=== PATIENT | male | born 1950 | race Caucasian/White ===

== ENCOUNTER 2021-03-15 03:14 | Inpatient (IN) ==
[2021-03-15] MEDS ORDERED: NALOXONE HCL 0.4 MG/ML VIAL ONE (03:25)
--- NOTE | 2021-03-15 03:37 | Emergency Department Note ---
SOB HPI General Chief Complaint: Shortness of Breath/Dyspnea Stated Complaint: Hypoxia Time Seen by Provider: 03/15/21 03:27 Mode of arrival: EMS Limitations: altered mental status and physical limitation History of Present Illness HPI Narrative: 70-year-old male was [facility] in from prison after he was found to be hypoxic and lethargic without his oxygen on. Patient has chronic respiratory failure supposed to be on oxygen as well as CPAP at night. He is morbidly obese has a history of chronic respiratory failure chronic atrial fibrillation and congestive heart failure and emphysema per prison records. On arrival of EMS patient was lethargic with minimal improvement when placed on oxygen. It is unclear how long the patient did not have his oxygen or his CPAP on. Patient is also on opiates routinely. Patient is morbidly obese unable to provide any history and awakens only to painful stimuli and voice. He has previous DO NOT RESUSCITATE order. halfway records are reviewed. Nursing notes reviewed. Related Data Home Medications Medication Instructions Recorded Confirmed buspirone 10 mg PO BID 03/15/21 calcium carbonate [Antacid 500 mg PO QDAY PRN 03/15/21 03/15/21 (calcium carbonate)] fluoxetine 20 mg PO QDAY 03/15/21 03/15/21 lorazepam 0.5 mg PO Q6 PRN 03/15/21 morphine 5 mg PO Q6 03/15/21 03/15/21 quetiapine [Seroquel] 12.5 mg PO BID 03/15/21 03/15/21 umeclidinium-vilanterol [Anoro 1 inh INHALATION QDAY 03/15/21 03/15/21 Ellipta] Allergies Allergy/AdvReac Type Severity Reaction Status Date / Time Amoxicillin [From Augmentin] Allergy Unknown Unknown Verified 03/15/21 03:17 clavulanic acid Allergy Unknown Unknown Verified 03/15/21 03:17 [From Augmentin] doxycycline Allergy Unknown Unknown Verified 03/15/21 03:17 NSAIDS (Non-Steroidal Allergy Unknown Unknown Verified 03/15/21 03:17 Anti-Inflamma Penicillins Allergy Unknown Unknown Verified 03/15/21 03:17 Review of Systems ROS ROS Narrative: Unobtainable due to patient's altered mental status [facility] Narrative Patient History Narrative: Narrative: Medical/Surgical/Family History All Active Problems (Updated 03/15/21 @ 05:38 by Anatoliy Connors MD) Acute and chronic respiratory failure ([id number]) (Acute) Congestive heart failure (Acute) Social History Smoking Status: Unknown if ever smoked Exam Narrative Narrative: Constitutional: morbidly obese, sleepy, HEENT: Normocephalic, atraumatic PERRLA, EOMI, oral mucosa dry Neck: Supple, no lymphadenopathy Lungs: Tachypneic, labored breathing, diminished breath sounds bilaterally Cardiac: Tachycardic, irregularly ir regular rhythm normal distal pulses, GI: Soft obese nondistended no guarding no rebound Musculoskeletal: 2+ pitting edema Neuro: Lethargic, opens eyes and moans to painful stimuli moving all extremities Psychiatric: Unable to assess Skin: Chronic stasis changes on bilateral legs cap refill less than 2 seconds, thickened skin on buttocks and thighs. General Limitations: altered mental status and physical limitation Course Reevaluation(s) Reevaluation #1: Patient is more awake now responds to voice and nods when I asked him if he is feeling better. I told him he is being admitted to the hospital and he nodded yes. Time: 05:08 Consultations Consultation #1: Case discussed with Dr. Mcgowan, hospitalist who agrees to admit patient. Time: 05:54 Vital Signs Vital signs: Vital Signs Temperature 96.9 F L 03/15/21 03:18 Pulse Rate 92 H 03/15/21 03:18 Respiratory Rate 27 H 03/15/21 03:18 Blood Pressure 127/87 03/15/21 03:18 Pulse Oximetry (%) 98 03/15/21 03:18 Temperature 96.9 F L 03/15/21 03:18 Pulse Rate 96 H 03/15/21 04:46 Respiratory Rate 27 H 03/15/21 05:30 Blood Pressure 101/75 03/15/21 05:30 Pulse Oximetry (%) 92 03/15/21 04:46 MDM MDM Narrative Medical decision making narrative: 70-year-old male prison resident bedridden morbidly obese history of CHF, chronic respiratory failure COPD chronic atrial fibrillation presents after he was found without his oxygen on. Blood gas shows acute on chronic hypercarbic respiratory failure with pH is 7.19 PCO2 124 PO2 79. CBC is normal BNP elevated troponin negative. EKG shows atrial fibrillation which is chronic. Patient is on Coumadin and INR 4.5. Because of the respiratory acidosis with severe hypercarbia patient was placed on BiPAP with improvement in his alertness.. Patient has previously DO NOT RESUSCITATE order on his records but noninvasive ventilation is deemed to be acceptable.. Will be admitted for further evaluation and treatment. Case discussed with Dr Mcgowan who agrees to admit patient. Differential Diagnosis Differential Diagnosis: Acute on chronic respiratory failure, hypoxemia, hypercarbia, CHF, ACS Lab Data Lab results reviewed: Yes I reviewed the patient's lab results. Lab results narrative: ABG shows pH 7.19 PCO2 greater than 124 PO2 79 bicarb of 42 Result diagrams: 03/15/21 03:27 03/15/21 03:27 Labs: Lab Results 03/15/21 03/15/21 03/15/21 Range/Units 03:27 03:27 03:27 WBC 10.7 (4.5-11.0) K/mcL RBC 4.67 (4.50-5.90) M/mcL Hgb 14.3 (13.5-16.5) g/dL Hct 50.0 (41.0-55.0) % MCV 107.1 H (80.0-100.0) fL MCH 30.6 (26.0-34.0) pg MCHC 28.6 L (31.0-36.0) g/dL RDW 13.6 (11.5-14.5) % Plt Count 279 (140-440) K/mcL MPV 10.6 H (7.4-10.4) fL Seg Neutrophils % 70 (38-78) % Band Neutrophils % 2 (0-10) % Lymphocytes % 14 L (15-49) % Monocytes % (Manual) 11 (1-12) % Eosinophils % (Manual) 2 (0-7) % Basophils % (Manual) 1 (0-2) % Platelet Estimate Normal (Normal) RBC Morphology Abnormal A (Normal) Macrocytosis 1+ A (None Seen) PT 44.5 H (11.9-14.5) sec INR 4.5 H (0.9-1.1) APTT 76.3 H (20.0-37.0) sec Sodium 135 (133-145) mmol/L Potassium 4.6 (3.3-5.1) mmol/L Chloride 84 L (96-108) mmol/L Carbon Dioxide 46 H* (22-30) mmol/L Anion Gap 5.0 L (8.0-16.0) BUN 13 (8-23) mg/dL Creatinine 0.8 (0.7-1.2) mg/dL GFR Calculation 89 Glucose 174 H (70-105) mg/dL Calcium 9.8 (8.6-10.4) mg/dL Total Bilirubin 0.3 (0.1-1.0) mg/dL AST 18 (<40) U/L ALT 9 (<40) U/L Alkaline Phosphatase 87 (39-117) U/L Troponin T (<0.03) ng/mL NT-Pro-B Natriuret Pep 2380.0 H (<125.0) pg/mL Total Protein 8.0 (5.9-8.4) gm/dL Albumin 3.5 (3.2-5.2) gm/dL Globulin 4.5 H (2.2-3.7) gm/dL Albumin/Globulin Ratio 0.8 L (1.0-2.3) 03/15/21 Range/Units 03:27 WBC (4.5-11.0) K/mcL RBC (4.50-5.90) M/mcL Hgb (13.5-16.5) g/dL Hct (41.0-55.0) % MCV (80.0-100.0) fL MCH (26.0-34.0) pg MCHC (31.0-36.0) g/dL RDW (11.5-14.5) % Plt Count (140-440) K/mcL MPV (7.4-10.4) fL Seg Neutrophils % (38-78) % Band Neutrophils % (0-10) % Lymphocytes % (15-49) % Monocytes % (Manual) (1-12) % Eosinophils % (Manual) (0-7) % Basophils % (Manual) (0-2) % Platelet Estimate (Normal) RBC Morphology (Normal) Macrocytosis (None Seen) PT (11.9-14.5) sec INR (0.9-1.1) APTT (20.0-37.0) sec Sodium (133-145) mmol/L Potassium (3.3-5.1) mmol/L Chloride (96-108) mmol/L Carbon Dioxide (22-30) mmol/L Anion Gap (8.0-16.0) BUN (8-23) mg/dL Creatinine (0.7-1.2) mg/dL GFR Calculation Glucose (70-105) mg/dL Calcium (8.6-10.4) mg/dL Total Bilirubin (0.1-1.0) mg/dL AST (<40) U/L ALT (<40) U/L Alkaline Phosphatase (39-117) U/L Troponin T < 0.01 (<0.03) ng/mL NT-Pro-B Natriuret Pep (<125.0) pg/mL Total Protein (5.9-8.4) gm/dL Albumin (3.2-5.2) gm/dL Globulin (2.2-3.7) gm/dL Albumin/Globulin Ratio (1.0-2.3) ED POC Tests ED POC Tests: KATINA - SARS Antigen Negative Radiology Data Radiology results reviewed: Yes I reviewed the patient's radiology results. Radiology results narrative: IMPRESSION: Moderate fibrosis or soft tissue throughout the right pleural space encasing and restricting the entire right lung volume. Suggest chest CT for more specific evaluation Moderate atelectasis or, less likely, infiltrate in both medial bases. Moderate cardiomegaly. Interpreted and Authenticated by: Orion Choudhary 03/15/21 EKG Data EKG #1: EKG attestation: Yes I reviewed and interpreted this EKG. and Yes There are no EKG findings of acute coronary syndrome EKG results narrative: EKG performed at 3:37 AM shows atrial fibrillation with rapid response rate of 125 right axis deviation, incomplete right bundle branch block borderline prolonged QT interval nonspecific ST changes CC TIME Critical Care Time Critical Care Time: Yes Total Critical Care Time: 35 Discharge Plan Patient/Caregiver Discharge Instructions Pt seen by TELETYPEWRITER OPERATOR/PA only: No Clinical Impression: Acute and chronic respiratory failure ([id number]), Congestive heart failure Patient Disposition: Xfer As Inpt ([facility]) Condition: Serious Follow up with: Not On Staff,Physician [Primary Care Provider] - Prescriptions: No Action quetiapine [Seroquel] 25 mg Tablet 12.5 mg PO BID RF: 0 lorazepam 0.5 mg Tablet 0.5 mg PO Q6 PRN (Reason: Shortness Of Breath) RF: 0 fluoxetine 20 mg Tablet 20 mg PO QDAY RF: 0 buspirone 10 mg Tablet 10 mg PO BID RF: 0 calcium carbonate [Antacid (calcium carbonate)] 200 mg calcium (500 mg) Tablet,Chewable 500 mg PO QDAY PRN (Reason: Indigestion) RF: 0 Anoro Ellipta 62.5-25 mcg/actuation Blister With Device 1 inh INHALATION QDAY RF: 0 morphine 20 mg/ml solution 5 mg PO Q6 RF: 0
[2021-03-15] MEDS ORDERED: NALOXONE HCL 0.4 MG/ML VIAL IV ONE (03:50)
--- NOTE | 2021-03-15 03:52 | XRay Report ---
CLINICAL INFORMATION: dyspnea COMPARISON: None. FINDINGS: Moderate cardiomegaly noted. Mild mediastinal widening noted. Pulmonary vasculature unremarkable. Moderate soft tissue or fibrosis throughout the right pleural space has encased and restricted the entire right lung. There is moderate atelectasis or infiltrate in both medial lower lobe with air bronchograms. IMPRESSION: Moderate fibrosis or soft tissue throughout the right pleural space encasing and restricting the entire right lung volume. Suggest chest CT for more specific evaluation Moderate atelectasis or, less likely, infiltrate in both medial bases. Moderate cardiomegaly. Interpreted and Authenticated by: Orion Choudhary 03/15/21
[2021-03-15 05:12] LABS: Hemoglobin 14.3 g/dL (13.5-16.5); Mean Cell Volume 107.1 fL (80.0-100.0); Mean Corpuscular HGB Conc 28.6 g/dL (31.0-36.0); Mean Platelet Volume 10.6 fL (7.4-10.4); Platelet Count 279 K/mcL (140-440); RBC 4.67 M/mcL (4.50-5.90); Red Cell Distribution Width 13.6 % (11.5-14.5); WBC 10.7 K/mcL (4.5-11.0)
[2021-03-15 05:29] LABS: INR 4.5 (0.9-1.1); Partial Thromboplastin Time 76.3 sec (20.0-37.0); Prothrombin Time 44.5 sec (11.9-14.5)
[2021-03-15 05:38] LABS: ALT/SGPT 9 U/L (<40); AST/SGOT 18 U/L (<40); Albumin 3.5 gm/dL (3.2-5.2); Albumin/Globulin Ratio 0.8 (1.0-2.3); Alkaline Phosphatase 87 U/L (39-117); Bilirubin,Total 0.3 mg/dL (0.1-1.0); Blood Urea Nitrogen 13 mg/dL (8-23); Calcium 9.8 mg/dL (8.6-10.4); Carbon Dioxide 46 mmol/L (22-30); Chloride 84 mmol/L (96-108); Globulin 4.5 gm/dL (2.2-3.7); Glomerular Filtration Rate 89; Glucose 174 mg/dL (70-105)
[2021-03-15 05:55] LABS: Band Neutrophils % 2 % (0-10); Basophils % (Manual) 1 % (0-2); Eosinophils % (Manual) 2 % (0-7); Lymphocytes % 14 % (15-49); Macrocytosis 1+ (None Seen); Monocytes % (Manual) 11 % (1-12); Platelet Estimate NORMAL (Normal); RBC Morphology ABNORMAL (Normal); Segmented Neutrophils % 70 % (38-78)
[2021-03-15 06:18] LABS: Appearance,Urine HAZY (Clear); Bilirubin,Urine Negative (Negative); Color,Urine AMBER; Culture Indicated,Urine yes; Glucose,Urine (UA) Negative (Negative); Ketones,Urine Negative (Negative); Leukocyte Esterase,Urine Negative /ug (Negative); Mucus,Urine MOD /hpf; Nitrate,Urine Negative (Negative); Protein,Urine 30 mg/dL (Negative); Specific Gravity,Urine 1.023 (1.000-1.035); Urine Blood Negative (Negative); Urine Hyaline Cast 135 /lph (0-2); Urine RBC 3 /hpf (0-3); Urine Squamous Epithelial Cell 1 /hpf (0-4); Urine WBC 27 /hpf (0-4); Urobilinogen,Urine Negative
--- NOTE | 2021-03-15 09:30 | Internal Med History&Physical ---
HPI History of Present Illness Patient information: Note initiated : 03/15/21 at 9:24 am Service Date, if different from initiated Date: [] Patient: James Hyde 70 y/o M admitted on 03/15/21 for Hypoxia. Chief Complaint: [] History of present illness: Mr. Hyde is a 70 year old M Patient was found at the nursing facility without his CPAP or oxygen on. His oxygen was 39% and he was altered. EMS was called placed on BiPAP. In the ED is found to have a pH 7.19 with a CO2 of greater than 124. Is continued on BiPAP and improved mentation follow-up ABG improving. Patient denies any current complaints coughing shortness of breath no current chest pain. He chronically wears 4 L of oxygen. Review of Systems: Pertinent positives as above. Denies headache/fever/chills/nausea/vomiting/chest or abdominal pain/cough/dyspnea/diarrhea. Remaining 10 point review of system reviewed negative PFSH PFSH All Active Problems (Updated 03/15/21 @ 05:38 by Anatoliy Connors MD) Acute and chronic respiratory failure ([id number]) (Acute) Congestive heart failure (Acute) MEDS/ALLERGIES Home Medications and Allergies Home Medications Medication Instructions Recorded Confirmed Type buspirone 10 mg PO BID 03/15/21 History calcium carbonate [Antacid 500 mg PO QDAY PRN 03/15/21 03/15/21 History (calcium carbonate)] fluoxetine 20 mg PO QDAY 03/15/21 03/15/21 History lorazepam 0.5 mg PO Q6 PRN 03/15/21 History morphine 5 mg PO Q6 03/15/21 03/15/21 History quetiapine [Seroquel] 12.5 mg PO BID 03/15/21 03/15/21 History umeclidinium-vilanterol [Anoro 1 inh INHALATION QDAY 03/15/21 03/15/21 History Ellipta] Allergies Allergy/AdvReac Type Severity Reaction Status Date / Time Amoxicillin [From Augmentin] Allergy Unknown Unknown Verified 03/15/21 03:17 clavulanic acid Allergy Unknown Unknown Verified 03/15/21 03:17 [From Augmentin] doxycycline Allergy Unknown Unknown Verified 03/15/21 03:17 NSAIDS (Non-Steroidal Allergy Unknown Unknown Verified 03/15/21 03:17 Anti-Inflamma Penicillins Allergy Unknown Unknown Verified 03/15/21 03:17 EXAM Constitutional Vitals: Temp Pulse Resp BP Pulse Ox 97.3 F 72 15 132/89 91 03/15/21 09:00 03/15/21 07:15 03/15/21 09:00 03/15/21 09:00 03/15/21 09:00 Exam: General: Alert, Awake, No acute Distress, morbid obesity Eyes/N/T: EOMI, PERRL, Head/Neck: neck supple, normocephalic atraumatic CV: RRR, No murmurs, normal s1/s2 Pulm: Diminished b/l, no wheezing Abd: soft, nontender, +BS x4 Ext: no clubbing/cyanosis 1 + b/l LE edema, venous stasis changes bilateral lower extremities Neuro: Alert, no focal deficits, moves all extremities, CN 2-12 grossly intact, symmetrical strength b/l upper/lower, sensations intact b/l upper/lower Skin: warm/dry DATA Data Completed and Pending Labs: Labs from last 24 hours 03/15/21 03/15/21 03/15/21 05:22 03:27 03:27 WBC RBC Hgb Hct MCV MCH MCHC RDW Plt Count MPV Seg Neutrophils % Band Neutrophils % Lymphocytes % Monocytes % (Manual) Eosinophils % (Manual) Basophils % (Manual) Platelet Estimate RBC Morphology Macrocytosis PT INR APTT Sodium 135 Potassium 4.6 Chloride 84 L Carbon Dioxide 46 H* Anion Gap 5.0 L BUN 13 Creatinine 0.8 GFR Calculation 89 Glucose 174 H Calcium 9.8 Total Bilirubin 0.3 AST 18 ALT 9 Alkaline Phosphatase 87 Troponin T < 0.01 NT-Pro-B Natriuret Pep 2380.0 H Total Protein 8.0 Albumin 3.5 Globulin 4.5 H Albumin/Globulin Ratio 0.8 L Urine Color Susan Urine Appearance Hazy A Urine pH 5.0 Ur Specific [place] 1.023 Urine Protein 30 A Urine Glucose (UA) Negative Urine Ketones Negative Urine Occult Blood Negative Urine Nitrate Negative Urine Bilirubin Negative Urine Urobilinogen Negative Ur Leukocyte Esterase Negative Urine RBC 3 Urine WBC 27 H Ur Squamous Epith Cells 1 Urine Bacteria None Hyaline Casts 135 H Urine Mucus Mod A Ur Culture Indicated? yes 03/15/21 03/15/21 03:27 03:27 WBC 10.7 RBC 4.67 Hgb 14.3 Hct 50.0 MCV 107.1 H MCH 30.6 MCHC 28.6 L RDW 13.6 Plt Count 279 MPV 10.6 H Seg Neutrophils % 70 Band Neutrophils % 2 Lymphocytes % 14 L Monocytes % (Manual) 11 Eosinophils % (Manual) 2 Basophils % (Manual) 1 Platelet Estimate Normal RBC Morphology Abnormal A Macrocytosis 1+ A PT 44.5 H INR 4.5 H APTT 76.3 H Sodium Potassium Chloride Carbon Dioxide Anion Gap BUN Creatinine GFR Calculation Glucose Calcium Total Bilirubin AST ALT Alkaline Phosphatase Troponin T NT-Pro-B Natriuret Pep Total Protein Albumin Globulin Albumin/Globulin Ratio Urine Color Urine Appearance Urine pH Ur Specific [place] Urine Protein Urine Glucose (UA) Urine Ketones Urine Occult Blood Urine Nitrate Urine Bilirubin Urine Urobilinogen Ur Leukocyte Esterase Urine RBC Urine WBC Ur Squamous Epith Cells Urine Bacteria Hyaline Casts Urine Mucus Ur Culture Indicated? A/P Narrative A/P Narrative: A: *Acute on chronic hypercapnic/hypoxic respiratory failure (4L O2 @home and CPAP) -Improving *Encephalopathy: 2/2 above -Much improved *Abnormal chest x-ray with moderate fibrosis or soft tissue encasing right lung, rads suggest CT *RAMAKRISHNA on cpap: *Morbid obesity *Respiratory acidosis: 2/2 above *A. fib: On warfarin *?h/o CHF *COPD (on 4L @home): *Opiate dependence with chronic LBP: *Depression/anxiety: *Deconditioning/debility: Patient is wheelchair-bound and unable to transfer by self *pressure ulcers P: -bipap, f/u ABG -cont home meds and clarify meds -pcp records -CT chest -wound care -pt/ot -cm for placement -ppx: Warfarin per pharmacy Time Spent With Patient Time: Total time spent is greater than 50% in coordination of care (as documented) at patient's floor/unit and/or counseling patient:
[2021-03-15] MEDS ORDERED: CALCIUM CARBONATE 500 MG TAB.CHEW PO PRN (09:57)
[2021-03-15] MEDS ORDERED: POTASSIUM CHLORIDE 40 MEQ in DEXTROSE 5% IN WATER 500 ML IV PRN (09:58)
[2021-03-15] MEDS ORDERED: LACTULOSE 20 GM/30 ML ORAL.SOL PO PRN (09:58)
[2021-03-15] MEDS ORDERED: POTASSIUM CHLORIDE 20 MEQ TABLET PO PRN ×2 (09:58)
[2021-03-15] MEDS ORDERED: SENNOSIDES 1 TABLET PO PRN (09:58)
[2021-03-15] MEDS ORDERED: POLYETHYLENE GLYCOL 3350 17 GM PACKET PO PRN (09:58)
[2021-03-15] MEDS ORDERED: IPRATROPIUM/ALBUTEROL 3 ML AMPUL.NEB NEB PRN (09:58)
[2021-03-15] MEDS ORDERED: ONDANSETRON 4 MG/2 ML VIAL IV PRN (09:58)
[2021-03-15] MEDS ORDERED: MAGNESIUM SULFATE 2 GM/50 ML BAG IV PRN (09:58)
[2021-03-15] MEDS ORDERED: morphine 20 MG/ML ORAL.CONC PO PRN (10:13)
[2021-03-15] MEDS: 0.9 % SODIUM CHLORIDE 10 ML SYRINGE IV SCH ×2 (13:20→22:00)
--- NOTE | 2021-03-15 13:31 | Cat Scan Report ---
CLINICAL INFORMATION: Hypoxia. Pleural effusion or pleural soft tissue encasing and restricting the right lung on plain film COMPARISON: Chest x-ray 03/15/2021 TECHNIQUE: 0.625 mm axial slices were obtained from the lung apices through the bases without intravenous contrast. 2.5 mm Sagittal, coronal and axial reformatted images were processed and reviewed at bone, lung and soft tissue windows. 7 mm axial MIP images were also reconstructed to optimize pulmonary nodule detection.The exam was performed using radiation dose optimization techniques including, but not limited to, automated exposure control, adjustment of the mA and/or kV according to patient size and use of iterative reconstruction technique. FINDINGS: A large right pleural effusion results in subtotal compressive atelectasis in the right lower lobe and the posterior segment right upper lobe. There is also subtotal right middle lobe atelectasis. Small left pleural effusion with atelectasis in the medial basilar segment left lower lobe appreciated. Scattered mosaic perfusion pattern is seen throughout the aerated lungs. Mediastinal windows show the heart is mildly enlarged and scattered calcific plaque in the coronary arteries. Central pulmonary arteries are mildly enlarged main: pulmonary diameter 4.1 cm. Thoracic aorta is normal diameter. There is no adenopathy in the mediastinal hilar or axillary regions. The esophagus is grossly normal. Thyroid is unremarkable. Bones and soft tissues of the chest wall show no abnormality. Images through the superior abdomen show multiple small stones in the gallbladder. Gallbladder is, otherwise, normal. Visualized liver, adrenal glands, spleen and pancreas are normal.. IMPRESSION: 1. Large right pleural effusion resulting in subtotal atelectasis of the posterior right lower lobe and subsegmental atelectasis posterior right upper and middle lobes. Suggest thoracentesis for diagnosis and therapy 2. Small left pleural effusion with complete atelectasis medial basilar segment left lower lobe 3. Mosaic perfusion pattern throughout the residual aerated lungs. This typically indicates small airways disease or, less likely, chronic pulmonary emboli. 4. Enlargement of the central pulmonary arteries suggestive of pulmonary hypertension. 5. Mild cardiomegaly with scattered calcific plaque in the coronary arteries. 6. Cholelithiasis. Interpreted and Authenticated by: Orion Choudhary 03/15/21
[2021-03-15] MEDS: ACETAMINOPHEN 325 MG TABLET PO PRN (18:57)
[2021-03-15] MEDS: DOCUSATE SODIUM 100 MG CAPSULE PO SCH (21:22)
[2021-03-15] MEDS: QUEtiapine 25 MG TABLET PO SCH (21:22)
[2021-03-16] MEDS: ACETAMINOPHEN 325 MG TABLET PO PRN ×2 (01:06→06:55)
[2021-03-16] MEDS: 0.9 % SODIUM CHLORIDE 10 ML SYRINGE IV SCH ×3 (05:19→21:18)
[2021-03-16 07:22] LABS: INR 4.1 (0.9-1.1); Prothrombin Time 41.9 sec (11.9-14.5)
[2021-03-16] MEDS: PANTOPRAZOLE 40 MG TABLET PO SCH (07:32)
[2021-03-16] MEDS ORDERED: morphine 2 MG/ML VIAL IV PRN (07:38)
[2021-03-16] MEDS: METOPROLOL TARTRATE 5 MG/5 ML VIAL IV PRN ×5 (07:48→23:10)
--- NOTE | 2021-03-16 07:50 | Internal Med Progress Note ---
SUBJECTIVE Subjective Patient information: Note initiated : 03/16/21 at 7:49 am Service Date, if different from initiated Date: [] Patient: James Hyde 70 y/o M admitted on 03/15/21 for Hypoxia. Chief Complaint: [] Interval history: History of present illness: Mr. Hyde is a 70 year old M Patient was found at the nursing facility without his CPAP or oxygen on. His oxygen was 39% and he was altered. EMS was called placed on BiPAP. In the ED is found to have a pH 7.19 with a CO2 of greater than 124. Is continued on BiPAP and improved mentation follow-up ABG improving. Patient denies any current complaints coughing shortness of breath no current chest pain. He chronically wears 4 L of oxygen. *Discussion with about him and he has been a DNR/ comfort care at the facility and she was surprised that the patient was sent to the ED but it sounds like the patient called 911 himself. 03/16 Patient comfortable on BiPAP is been on nasal cannula occasionally and then placed back on. INR decreased some likely not enough for Thora, will discuss with radiology. Review of Systems: denies headache/fever/chills/nausea/vomiting/chest or abdominal pain/diarrhea. Otherwise see above. Constitutional Vitals: Vital Signs Temp Pulse Resp BP Pulse Ox 97.5 F 116 H 24 H 135/110 94 03/16/21 04:01 03/16/21 05:15 03/16/21 05:15 03/16/21 04:01 03/16/21 07:30 Period Temp Pulse Resp BP Sys/Aguayo Pulse Ox Last 24 Hr 96.8 F-98.5 F 91-122 13-92 96-204/54-167 76-100 Intake and Output 03/15/21 03/16/21 03/16/21 21:59 05:59 13:59 Intake Total 240 240 Output Total 375 250 Balance -135 -10 Weight 178.988 kg Intake & Output: Intake & Output 03/15/21 03/16/21 03/16/21 21:59 05:59 13:59 Intake Total 240 240 Output Total 375 250 Balance -135 -10 Weight 178.988 kg Intake: Oral 240 240 Output: Urine Catheter Amount 375 250 Other: Meal Dinner Percent of Meal Consumed 100% Urine Appearance Clear Clear Uretheral (Galan) Clear Urine Color Dark Yellow Dark Yellow Uretheral (Galan) Dark Yellow Exam: General: Alert, Awake, No acute Distress, morbid obesity Eyes/N/T: EOMI, , Head/Neck: neck supple, CV: RRR, No murmurs, Pulm: Diminished b/l, Abd: soft, nontender, +BS x4 Ext: no clubbing/cyanosis mild b/l LE edema, venous stasis changes bilateral lower extremities Neuro: Alert, no focal deficits, moves all extremities, Skin: warm/dry OBJ DATA Labs CBC & Chem 7: 03/15/21 03:27 03/16/21 05:19 Labs: Abnormal Lab Results 03/16/21 03/15/21 03/15/21 05:19 05:22 03:27 MCV MCHC MPV Lymphocytes % RBC Morphology Macrocytosis PT 41.9 H INR 4.1 H APTT Chloride 84 L Carbon Dioxide 46 H* Anion Gap 5.0 L Glucose 174 H NT-Pro-B Natriuret Pep 2380.0 H Globulin 4.5 H Albumin/Globulin Ratio 0.8 L Urine Appearance Hazy A Urine Protein 30 A Urine WBC 27 H Hyaline Casts 135 H Urine Mucus Mod A 03/15/21 03/15/21 03:27 03:27 MCV 107.1 H MCHC 28.6 L MPV 10.6 H Lymphocytes % 14 L RBC Morphology Abnormal A Macrocytosis 1+ A PT 44.5 H INR 4.5 H APTT 76.3 H Chloride Carbon Dioxide Anion Gap Glucose NT-Pro-B Natriuret Pep Globulin Albumin/Globulin Ratio Urine Appearance Urine Protein Urine WBC Hyaline Casts Urine Mucus Meds: Medications Acetaminophen (Acetaminophen 325 Mg Tablet) 650 mg PO Q6HP PRN PRN Reason: PAIN/FEVER > 101 Last Admin: 03/16/21 06:55 Dose: 650 mg Documented by: Albuterol/Ipratropium (Ipratropium/Albuterol 3 Ml Ampul.Neb) 3 ml NEB Q4HP PRN PRN Reason: Shortness Of Breath Calcium Carbonate/Glycine (Calcium Carbonate 500 Mg Tab.Chew) 500 mg PO QDAY PRN PRN Reason: Indigestion Docusate Sodium (Docusate Sodium 100 Mg Capsule) 100 mg PO BID [facility] Last Admin: 03/15/21 21:22 Dose: 100 mg Documented by: Fluoxetine HCl (Fluoxetine Hcl 20 Mg Capsule) 20 mg PO DAILY [facility] Potassium Chloride 40 meq/ (Dextrose) 520 mls @ 130 mls/hr IV UD PRN PRN Reason: Potassium < 3 Magnesium Sulfate (Magnesium Sulfate) 2 gm in 50 mls @ 50 mls/hr IV UD PRN PRN Reason: Magnesium </= 1.6 Lactulose (Lactulose 20 Gm/30 Ml Oral.Ibeth) 20 gm PO DAILYP PRN PRN Reason: Constipation Metoprolol Tartrate (Metoprolol Tartrate 5 Mg/5 Ml Vial) 5 mg IV Q2HP PRN PRN Reason: Tachyarrhythmias HR>110 Last Admin: 03/16/21 07:48 Dose: 5 mg Documented by: Morphine Sulfate (Morphine 2 Mg/Ml Vial) 1 - 4 mg IV Q3HP PRN; Protocol PRN Reason: Per Pain Protocol Ondansetron HCl (Ondansetron 4 Mg/2 Ml Vial) 4 mg IV Q4HP PRN PRN Reason: Nausea And Vomiting Pantoprazole Sodium (Pantoprazole 40 Mg Tablet) 40 mg PO QAMAC [facility] Last Admin: 03/16/21 07:32 Dose: 40 mg Documented by: Umeclidinium- Vilanterol [Anoro Ellipta] 62.5-25 Mcg Inhaler 1 dose INH QDAY [facility] Polyethylene Glycol (Polyethylene Glycol 3350 17 Gm Packet) 17 gm PO DAILYP PRN PRN Reason: Constipation Potassium Chloride (Potassium Chloride 20 Meq Tablet) 40 meq PO UD PRN PRN Reason: Potssium is 3-3.5 Potassium Chloride (Potassium Chloride 20 Meq Tablet) 40 meq PO UD PRN PRN Reason: Potassium < 3 Quetiapine Fumarate (Quetiapine 25 Mg Tablet) 12.5 mg PO BID [facility] Last Admin: 03/15/21 21:22 Dose: 12.5 mg Documented by: Senna (Sennosides 1 Tablet) 2 tab PO DAILYP PRN PRN Reason: Constipation Sodium Chloride (0.9 % Sodium Chloride 10 Ml Syringe) 10 ml IV Q8 [facility] Last Admin: 03/16/21 05:19 Dose: 10 ml Documented by: Warfarin Sodium (Warfarin Per Pharmacy) 1 order PO UD [facility] A/P Narrative A/P Narrative: A: *Large right pleural effusion compressing right lung: *Acute on chronic hypercapnic/hypoxic respiratory failure (4L O2 @home and CPAP): 2/2 above -Improving -off/on bipap *Encephalopathy: 2/2 above -Much improved *RAMAKRISHNA on cpap: *Morbid obesity *Respiratory acidosis: 2/2 above *A. fib: On warfarin *?h/o CHF *COPD (on 4L @home): *Opiate dependence with chronic LBP: *Depression/anxiety: *Deconditioning/debility: Patient is wheelchair-bound and unable to transfer by self *pressure ulcers P: -obtain thoracentesis when INR lower, will give low dose vit k, f/u INR in AM and hopefully thora in AM -prn bipap -wound care -pt/ot -cm for placement -ppx: Warfarin per pharmacy DNR Time Spent With Patient Time: Total time spent is greater than 50% in coordination of care (as documented) at patient's floor/unit and/or counseling patient: QUALITY Stroke Symptom Onset Unknown: No VTE Deep Vein Thrombosis/Pulmonary Embolism Present on Admission: No
[2021-03-16] MEDS: LORazepam 0.5 MG TABLET PO PRN ×2 (08:14→15:54)
[2021-03-16 08:52] LABS: ALT/SGPT 7 U/L (<40); AST/SGOT 17 U/L (<40); Albumin 3.2 gm/dL (3.2-5.2); Albumin/Globulin Ratio 0.8 (1.0-2.3); Alkaline Phosphatase 79 U/L (39-117); Bilirubin,Direct < 0.2 mg/dL (0-0.3); Bilirubin,Total 0.6 mg/dL (0.1-1.0); Blood Urea Nitrogen 14 mg/dL (8-23); Calcium 9.6 mg/dL (8.6-10.4); Carbon Dioxide 48 mmol/L (22-30); Chloride 86 mmol/L (96-108); Globulin 4.2 gm/dL (2.2-3.7); Glomerular Filtration Rate 95; Glucose 101 mg/dL (70-105); Lactate Dehydrogenase 209 U/L (135-225); Phosphorous 1.4 mg/dL (2.5-4.5); Triglycerides 172 mg/dL (<150); Uric Acid 7.7 mg/dL (2.5-8.0)
[2021-03-16] MEDS ORDERED: PHYTONADIONE 1 MG in 0.9 % SODIUM CHLORIDE 50 ML IV ONE (10:50)
[2021-03-16] MEDS ORDERED: POTASSIUM PHOSPHATE 40 MEQ in DEXTROSE 5% IN WATER 500 ML IV ONE (10:52)
[2021-03-16] MEDS ORDERED: acetaZOLAMIDE SOD 500 MG VIAL IV ONE (10:52)
[2021-03-16] MEDS: FLUoxetine HCL 20 MG CAPSULE PO SCH (11:12)
[2021-03-16] MEDS: SIMETHICONE 80 MG TAB.CHEW CHEWED SCH ×2 (11:12→21:15)
[2021-03-16] MEDS: DOCUSATE SODIUM 100 MG CAPSULE PO SCH ×2 (11:13→21:15)
[2021-03-16] MEDS: busPIRone 5 MG TABLET PO SCH ×2 (11:13→21:16)
[2021-03-16] MEDS: Umeclidinium-Vilanterol [Anoro Ellipta] 62.5-25 mcg Inhaler INH SCH (11:14)
[2021-03-16] MEDS: QUEtiapine 25 MG TABLET PO SCH ×3 (11:14→21:17)
[2021-03-16] MEDS ORDERED: LORazepam 0.5 MG TABLET PO PRN (15:52)
[2021-03-16] MEDS ORDERED: ALBUTEROL SULFATE 200 PUFF INHALER INH PRN (15:52)
[2021-03-16] MEDS ORDERED: BUSPIRONE 10 MG PO SCH (15:55)
[2021-03-16] MEDS ORDERED: LACTOPEROXI/GLUC OXID/POT THIO 1 EACH GEL..EA. TOPICAL PRN (16:04)
[2021-03-16] MEDS ORDERED: morphine 20 MG/ML ORAL.CONC PO PRN (16:05)
[2021-03-16] MEDS: TORSEMIDE 10 MG TABLET PO SCH (16:07)
[2021-03-16] MEDS: METOPROLOL SUCCINATE 50 MG TAB.XL.24H PO SCH (16:07)
[2021-03-16] MEDS: metFORMIN 500 MG TABLET PO SCH (18:01)
[2021-03-16] MEDS: IPRATROPIUM/ALBUTEROL 3 ML AMPUL.NEB NEB SCH (20:35)
[2021-03-16] MEDS: ACETAMINOPHEN 500 MG TABLET PO SCH (21:15)
[2021-03-16] MEDS: SPIRONOLACTONE 25 MG TABLET PO SCH (21:15)
[2021-03-16] MEDS: AMMONIUM LACTATE 12% TOPICAL SCH (21:17)
[2021-03-16] MEDS: NEUTRA PHOS 1 PACKET PO SCH (21:17)
[2021-03-17] MEDS: METOPROLOL TARTRATE 5 MG/5 ML VIAL IV PRN (03:09)
[2021-03-17] MEDS: 0.9 % SODIUM CHLORIDE 10 ML SYRINGE IV SCH ×3 (06:17→21:18)
--- NOTE | 2021-03-17 07:30 | Internal Med Progress Note ---
SUBJECTIVE Subjective Patient information: Note initiated : 03/17/21 at 7:28 am Service Date, if different from initiated Date: [] Patient: James Hyde 70 y/o M admitted on 03/15/21 for Hypoxia. Chief Complaint: [] Interval history: History of present illness: Mr. Hyde is a 70 year old M Patient was found at the nursing facility without his CPAP or oxygen on. His oxygen was 39% and he was altered. EMS was called placed on BiPAP. In the ED is found to have a pH 7.19 with a CO2 of greater than 124. Is continued on BiPAP and improved mentation follow-up ABG improving. Patient denies any current complaints coughing shortness of breath no current chest pain. He chronically wears 4 L of oxygen. *Discussion with about him and he has been a DNR/ comfort care at the facility and she was surprised that the patient was sent to the ED but it sounds like the patient called 911 himself. 03/16 Patient comfortable on BiPAP is been on nasal cannula occasionally and then placed back on. INR decreased some likely not enough for Thora, will discuss with radiology. 03/17 Patient on on nasal cannula. Feeling little better. Waiting INR for the viability do thoracentesis. No new pains or complaints. Review of Systems: denies headache/fever/chills/nausea/vomiting/chest or abdominal pain/diarrhea. Otherwise see above. Constitutional Vitals: Vital Signs Temp Pulse Resp BP Pulse Ox 97.3 F 109 H 25 H 102/90 99 03/17/21 04:01 03/17/21 05:08 03/17/21 07:01 03/17/21 07:01 03/17/21 07:01 Period Temp Pulse Resp BP Sys/Aguayo Pulse Ox Last 24 Hr 97 F-97.8 F 109-124 17-32 89-139/73-106 88-100 Intake and Output 03/16/21 03/17/21 03/17/21 21:59 05:59 13:59 Intake Total 509.0909 360 Output Total 1200 450 Balance -690.9091 -90 Weight 177.219 kg Intake & Output: Intake & Output 03/16/21 03/17/21 03/17/21 21:59 05:59 13:59 Intake Total 509.0909 360 Output Total 1200 450 Balance -690.9091 -90 Weight 177.219 kg Intake: IV 509.0909 Potassium Phosphate 40 Meq In 509.0909 Dextrose 5% in Water 500 ml @ 127.273 mls/hr IV ONCE ONE Rx#: [id number] Oral 360 Output: Urine Catheter Amount 1200 450 Other: Urine Appearance Clear Clear Urine Color Dark Yellow Light Susan Urine Odor Normal Exam: General: Alert, Awake, No acute Distress, morbid obesity Eyes/N/T: EOMI, , Head/Neck: neck supple, CV: RRR, No murmurs, Pulm: Diminished b/l but much more on Right, no wheezing Abd: soft, nontender, +BS x4 Ext: no clubbing/cyanosis mild b/l LE edema, venous stasis changes bilateral lower extremities Neuro: Alert, no focal deficits, moves all extremities, Skin: warm/dry OBJ DATA Labs CBC & Chem 7: 03/15/21 03:27 03/17/21 05:56 Labs: Abnormal Lab Results 03/16/21 03/16/21 03/15/21 05:19 05:19 05:22 MCV MCHC MPV Lymphocytes % RBC Morphology Macrocytosis PT 41.9 H INR 4.1 H APTT Chloride 86 L Carbon Dioxide 48 H* Anion Gap 3.0 L Glucose Phosphorus 1.4 L NT-Pro-B Natriuret Pep Globulin 4.2 H Albumin/Globulin Ratio 0.8 L Triglycerides 172 H Urine Appearance Hazy A Urine Protein 30 A Urine WBC 27 H Hyaline Casts 135 H Urine Mucus Mod A 03/15/21 03/15/21 03/15/21 03:27 03:27 03:27 MCV 107.1 H MCHC 28.6 L MPV 10.6 H Lymphocytes % 14 L RBC Morphology Abnormal A Macrocytosis 1+ A PT 44.5 H INR 4.5 H APTT 76.3 H Chloride 84 L Carbon Dioxide 46 H* Anion Gap 5.0 L Glucose 174 H Phosphorus NT-Pro-B Natriuret Pep 2380.0 H Globulin 4.5 H Albumin/Globulin Ratio 0.8 L Triglycerides Urine Appearance Urine Protein Urine WBC Hyaline Casts Urine Mucus Meds: Medications Acetaminophen (Acetaminophen 325 Mg Tablet) 650 mg PO Q6HP PRN PRN Reason: PAIN/FEVER > 101 Last Admin: 03/16/21 06:55 Dose: 650 mg Documented by: Acetaminophen (Acetaminophen 500 Mg Tablet) 1,000 mg PO TID [facility]; Protocol Last Admin: 03/16/21 21:15 Dose: 1,000 mg Documented by: Albuterol Sulfate (Albuterol Sulfate 200 Puff Inhaler) 2 puff INH QIDP PRN PRN Reason: Wheezing Albuterol/Ipratropium (Ipratropium/Albuterol 3 Ml Ampul.Neb) 3 ml NEB Q4HP PRN PRN Reason: Shortness Of Breath Albuterol/Ipratropium (Ipratropium/Albuterol 3 Ml Ampul.Neb) 3 ml NEB TID [facility] Last Admin: 03/16/21 20:35 Dose: 3 ml Documented by: Buspirone HCl (Buspirone 5 Mg Tablet) 10 mg PO BID [facility] Last Admin: 03/16/21 21:16 Dose: 10 mg Documented by: Calcium Carbonate/Glycine (Calcium Carbonate 500 Mg Tab.Chew) 500 mg PO QDAY PRN PRN Reason: Indigestion Last Admin: 03/16/21 08:14 Dose: 500 mg Documented by: Docusate Sodium (Docusate Sodium 100 Mg Capsule) 100 mg PO BID [facility] Last Admin: 03/16/21 21:15 Dose: 100 mg Documented by: Fluoxetine HCl (Fluoxetine Hcl 20 Mg Capsule) 20 mg PO DAILY [facility] Last Admin: 03/16/21 11:12 Dose: 20 mg Documented by: Glucose Oxid/Lactoperoxid/Muramidas (Lactoperoxi/Gluc Oxid/Pot Thio 1 Each Gel..Ea.) 1 each TOPICAL BID PRN PRN Reason: Dry Mouth Potassium Chloride 40 meq/ (Dextrose) 520 mls @ 130 mls/hr IV UD PRN PRN Reason: Potassium < 3 Magnesium Sulfate (Magnesium Sulfate) 2 gm in 50 mls @ 50 mls/hr IV UD PRN PRN Reason: Magnesium </= 1.6 Lactulose (Lactulose 20 Gm/30 Ml Oral.Ibeth) 20 gm PO DAILYP PRN PRN Reason: Constipation Lorazepam (Lorazepam 0.5 Mg Tablet) 0.5 mg PO Q6HP PRN PRN Reason: Agitation Last Admin: 03/17/21 03:07 Dose: 0.5 mg Documented by: Met[facility] ([facility] 500 Mg [facility]t) [facility] Last Admin: 03/16/21 18:01 Dose: 500 mg Documented by: Metoprolol Succinate (Metoprolol Succinate 50 Mg Tab.Xl.24h) 50 mg PO QDAY [facility] Last Admin: 03/16/21 16:07 Dose: 50 mg Documented by: Metoprolol Tartrate (Metoprolol Tartrate 5 Mg/5 Ml Vial) 5 mg IV Q2HP PRN PRN Reason: Tachyarrhythmias HR>110 Last Admin: 03/17/21 03:09 Dose: 5 mg Documented by: Morphine Sulfate (Morphine 2 Mg/Ml Vial) 1 - 4 mg IV Q3HP PRN; Protocol PRN Reason: Per Pain Protocol Last Admin: 03/17/21 03:37 Dose: 2 mg Documented by: Morphine Sulfate (Morphine 20 Mg/Ml Oral.Conc) 5 mg PO Q6HP PRN PRN Reason: [employer] Ondansetron HCl (Ondansetron 4 Mg/2 Ml Vial) 4 mg IV Q4HP PRN PRN Reason: Nausea And Vomiting Oxycodone HCl (Oxycodone Hcl 5 Mg Tablet) 5 mg PO Q4HP PRN; Protocol PRN Reason: Pain Pantoprazole Sodium (Pantoprazole 40 Mg Tablet) 40 mg PO QAMAC [facility] Last Admin: 03/16/21 07:32 Dose: 40 mg Documented by: Umeclidinium- Vilanterol [Anoro Ellipta] 62.5-25 Mcg Inhaler 1 dose INH QDAY [facility] Last Admin: 03/16/21 11:14 Dose: Not Given Documented by: Ammonium Lactate 12 (% Lotion) 1 dose TOPICAL BID [facility] Last Admin: 03/16/21 21:17 Dose: Not Given Documented by: Polyethylene Glycol (Polyethylene Glycol 3350 17 Gm Packet) 17 gm PO DAILYP PRN PRN Reason: Constipation Potassium Chloride (Potassium Chloride 20 Meq Tablet) 40 meq PO UD PRN PRN Reason: Potssium is 3-3.5 Potassium Chloride (Potassium Chloride 20 Meq Tablet) 40 meq PO UD PRN PRN Reason: Potassium < 3 Potassium/Phosphorus/Sodium (Neutra Phos 1 Packet) 2 packet PO BID [facility] Stop: 03/17/21 09:01 Last Admin: 03/16/21 21:17 Dose: 2 packet Documented by: Quetiapine Fumarate (Quetiapine 25 Mg Tablet) 12.5 mg PO BID [facility] Last Admin: 03/16/21 21:17 Dose: Not Given Documented by: Senna (Sennosides 1 Tablet) 2 tab PO DAILYP PRN PRN Reason: Constipation Simethicone (Simethicone 80 Mg Tab.Chew) 160 mg CHEWED BID [facility] Last Admin: 03/16/21 21:15 Dose: 160 mg Documented by: Sodium Chloride (0.9 % Sodium Chloride 10 Ml Syringe) 10 ml IV Q8 [facility] Last Admin: 03/17/21 06:17 Dose: 10 ml Documented by: Spironolactone (Spironolactone 25 Mg Tablet) 25 mg PO BID [facility] Last Admin: 03/16/21 21:15 Dose: 25 mg Documented by: Torsemide (Torsemide 10 Mg Tablet) 20 mg PO QDAY [facility] Last Admin: 03/16/21 16:07 Dose: 20 mg Documented by: A/P Narrative A/P Narrative: A: *Large right pleural effusion compressing right lung: *Acute on chronic hypercapnic/hypoxic respiratory failure (4L O2 @home and CPAP) : 2/2 above -Improving -off/on bipap *Encephalopathy: 2/2 above -Much improved *RAMAKRISHNA on cpap: *Morbid obesity *Respiratory acidosis: 2/2 above *A. fib: On warfarin *?h/o CHF *COPD (on 4L @home): *Opiate dependence with chronic LBP: *Depression/anxiety: *Deconditioning/debility: Patient is wheelchair-bound and unable to transfer by self *pressure ulcers P: -obtain thoracentesis if INR appropriate -prn bipap -wound care -pt/ot -cm for placement -ppx: Warfarin per pharmacy DNR Time Spent With Patient Time: Total time spent is greater than 50% in coordination of care (as documented) at patient's floor/unit and/or counseling patient: QUALITY Stroke Symptom Onset Unknown: No VTE Deep Vein Thrombosis/Pulmonary Embolism Present on Admission: No
[2021-03-17] MEDS: IPRATROPIUM/ALBUTEROL 3 ML AMPUL.NEB NEB SCH ×3 (07:46→21:27)
[2021-03-17 08:30] LABS: ALT/SGPT 8 U/L (<40); AST/SGOT 16 U/L (<40); Albumin 3.2 gm/dL (3.2-5.2); Albumin/Globulin Ratio 0.8 (1.0-2.3); Alkaline Phosphatase 70 U/L (39-117); Bilirubin,Direct < 0.2 mg/dL (0-0.3); Bilirubin,Total 0.8 mg/dL (0.1-1.0); Blood Urea Nitrogen 14 mg/dL (8-23); Calcium 9.1 mg/dL (8.6-10.4); Carbon Dioxide 47 mmol/L (22-30); Chloride 83 mmol/L (96-108); Globulin 3.9 gm/dL (2.2-3.7); Glomerular Filtration Rate 101; Glucose 111 mg/dL (70-105); Lactate Dehydrogenase 241 U/L (135-225); Triglycerides 239 mg/dL (<150); Uric Acid 7.9 mg/dL (2.5-8.0)
[2021-03-17] MEDS: DOCUSATE SODIUM 100 MG CAPSULE PO SCH ×2 (09:25→20:36)
[2021-03-17] MEDS: QUEtiapine 25 MG TABLET PO SCH ×2 (09:25→20:36)
[2021-03-17] MEDS: ACETAMINOPHEN 500 MG TABLET PO SCH ×3 (09:27→20:34)
[2021-03-17] MEDS: FLUoxetine HCL 20 MG CAPSULE PO SCH (09:31)
[2021-03-17] MEDS: METOPROLOL SUCCINATE 50 MG TAB.XL.24H PO SCH (09:31)
[2021-03-17] MEDS: PANTOPRAZOLE 40 MG TABLET PO SCH (09:31)
[2021-03-17] MEDS: metFORMIN 500 MG TABLET PO SCH ×2 (09:31→17:02)
[2021-03-17] MEDS: TORSEMIDE 10 MG TABLET PO SCH (09:32)
[2021-03-17] MEDS: SPIRONOLACTONE 25 MG TABLET PO SCH ×2 (09:32→20:37)
[2021-03-17] MEDS: NEUTRA PHOS 1 PACKET PO SCH (09:33)
[2021-03-17] MEDS: AMMONIUM LACTATE 12% TOPICAL SCH ×2 (09:37→21:19)
[2021-03-17] MEDS: Umeclidinium-Vilanterol [Anoro Ellipta] 62.5-25 mcg Inhaler INH SCH (09:37)
[2021-03-17] MEDS: busPIRone 5 MG TABLET PO SCH ×2 (09:44→20:36)
[2021-03-17] MEDS: SIMETHICONE 80 MG TAB.CHEW CHEWED SCH ×2 (09:44→20:37)
[2021-03-17 10:42] LABS: INR 1.2 (0.9-1.1); Prothrombin Time 15.9 sec (11.9-14.5)
--- NOTE | 2021-03-17 12:03 | Ultrasound Report ---
CLINICAL INFORMATION: Pre-Thoracentesis fluid assessment COMPARISON: None. FINDINGS: Moderate right pleural effusion appreciated IMPRESSION: Moderate right pleural effusion Interpreted and Authenticated by: Orion Choudhary 03/17/21
--- NOTE | 2021-03-17 13:20 | Internal Med Progress Note ---
SUBJECTIVE Subjective Patient information: Note initiated : 03/18/21 at 1:16 pm Service Date, if different from initiated Date: [] Patient: James Hyde 70 y/o M admitted on 03/15/21 for Hypoxia. Chief Complaint: [] Interval history: History of present illness: Mr. Hyde is a 70 year old M Patient was found at the nursing facility without his CPAP or oxygen on. His oxygen was 39% and he was altered. EMS was called placed on BiPAP. In the ED is found to have a pH 7.19 with a CO2 of greater than 124. Is continued on BiPAP and improved mentation follow-up ABG improving. Patient denies any current complaints coughing shortness of breath no current chest pain. He chronically wears 4 L of oxygen. *Discussion with about him and he has been a DNR/ comfort care at the facility and she was surprised that the patient was sent to the ED but it sounds like the patient called 911 himself. 03/16 Patient comfortable on BiPAP is been on nasal cannula occasionally and then placed back on. INR decreased some likely not enough for Thora, will discuss with radiology. 03/17 Patient on on nasal cannula. Feeling little better. Waiting INR for the viability do thoracentesis. No new pains or complaints. 03/18-about the same as yesterday General: morbidly obese Head: Atraumatic, normal inspection. Eyes: normal appearance, no scleral icterus. Neck: full ROM Respiratory: no respiratory distress. Cardiovascular: normal rate, irregular rhythm, S1, S2. GI/Abdominal: soft, nontender, no guarding. GI: donovan catheter Extremities: full range of motion, nontender, excoriations on buttock. Neurological: CN II-XII intact, intact sensation, weakness in all extremities. Psychiatric: normal mood. Skin: warm, normal color Constitutional Vitals: Vital Signs Temp Pulse Resp BP Pulse Ox 95.9 F L 113 H 23 H 130/93 95 03/17/21 12:01 03/17/21 08:00 03/17/21 12:01 03/17/21 12:01 03/17/21 12:01 Period Temp Pulse Resp BP Sys/Aguayo Pulse Ox Last 24 Hr 95.9 F-97.8 F 109-116 17-32 89-139/69-99 88-100 Intake and Output 03/16/21 03/17/21 03/17/21 21:59 05:59 13:59 Intake Total 509.0909 360 Output Total 1200 450 Balance -690.9091 -90 Weight 177.219 kg Intake & Output: Intake & Output 03/16/21 03/17/21 03/17/21 21:59 05:59 13:59 Intake Total 509.0909 360 Output Total 1200 450 Balance -690.9091 -90 Weight 177.219 kg Intake: IV 509.0909 Potassium Phosphate 40 Meq In 509.0909 Dextrose 5% in Water 500 ml @ 127.273 mls/hr IV ONCE ONE Rx#: [id number] Oral 360 Output: Urine Catheter Amount 1200 450 Other: Urine Appearance Clear Clear Urine Color Dark Yellow Light Susan Urine Odor Normal OBJ DATA Labs CBC & Chem 7: 03/15/21 03:27 03/18/21 05:49 Labs: Abnormal Lab Results 03/17/21 03/17/21 03/16/21 09:30 05:56 05:19 MCV MCHC MPV Lymphocytes % RBC Morphology Macrocytosis PT 15.9 H INR 1.2 H APTT Chloride 83 L 86 L Carbon Dioxide 47 H* 48 H* Anion Gap 6.0 L 3.0 L Creatinine 0.6 L Glucose 111 H Phosphorus 1.4 L Lactate Dehydrogenase 241 H NT-Pro-B Natriuret Pep Globulin 3.9 H 4.2 H Albumin/Globulin Ratio 0.8 L 0.8 L Triglycerides 239 H 172 H Urine Appearance Urine Protein Urine WBC Hyaline Casts Urine Mucus 03/16/21 03/15/21 03/15/21 05:19 05:22 03:27 MCV MCHC MPV Lymphocytes % RBC Morphology Macrocytosis PT 41.9 H INR 4.1 H APTT Chloride 84 L Carbon Dioxide 46 H* Anion Gap 5.0 L Creatinine Glucose 174 H Phosphorus Lactate Dehydrogenase NT-Pro-B Natriuret Pep 2380.0 H Globulin 4.5 H Albumin/Globulin Ratio 0.8 L Triglycerides Urine Appearance Hazy A Urine Protein 30 A Urine WBC 27 H Hyaline Casts 135 H Urine Mucus Mod A 03/15/21 03/15/21 03:27 03:27 MCV 107.1 H MCHC 28.6 L MPV 10.6 H Lymphocytes % 14 L RBC Morphology Abnormal A Macrocytosis 1+ A PT 44.5 H INR 4.5 H APTT 76.3 H Chloride Carbon Dioxide Anion Gap Creatinine Glucose Phosphorus Lactate Dehydrogenase NT-Pro-B Natriuret Pep Globulin Albumin/Globulin Ratio Triglycerides Urine Appearance Urine Protein Urine WBC Hyaline Casts Urine Mucus Meds: Medications Acetaminophen (Acetaminophen 325 Mg Tablet) 650 mg PO Q6HP PRN PRN Reason: PAIN/FEVER > 101 Last Admin: 03/16/21 06:55 Dose: 650 mg Documented by: Acetaminophen (Acetaminophen 500 Mg Tablet) 1,000 mg PO TID [facility]; Protocol Last Admin: 03/17/21 09:27 Dose: 1,000 mg Documented by: Albuterol Sulfate (Albuterol Sulfate 200 Puff Inhaler) 2 puff INH QIDP PRN PRN Reason: Wheezing Albuterol/Ipratropium (Ipratropium/Albuterol 3 Ml Ampul.Neb) 3 ml NEB Q4HP PRN PRN Reason: Shortness Of Breath Albuterol/Ipratropium (Ipratropium/Albuterol 3 Ml Ampul.Neb) 3 ml NEB TID [facility] Last Admin: 03/17/21 07:46 Dose: 3 ml Documented by: Buspirone HCl (Buspirone 5 Mg Tablet) 10 mg PO BID [facility] Last Admin: 03/17/21 09:44 Dose: 10 mg Documented by: Calcium Carbonate/Glycine (Calcium Carbonate 500 Mg Tab.Chew) 500 mg PO QDAY PRN PRN Reason: Indigestion Last Admin: 03/16/21 08:14 Dose: 500 mg Documented by: Docusate Sodium (Docusate Sodium 100 Mg Capsule) 100 mg PO BID [facility] Last Admin: 03/17/21 09:25 Dose: 100 mg Documented by: Fluoxetine HCl (Fluoxetine Hcl 20 Mg Capsule) 20 mg PO DAILY [facility] Last Admin: 03/17/21 09:31 Dose: 20 mg Documented by: Glucose Oxid/Lactoperoxid/Muramidas (Lactoperoxi/Gluc Oxid/Pot Thio 1 Each Gel..Ea.) 1 each TOPICAL BID PRN PRN Reason: Dry Mouth Potassium Chloride 40 meq/ (Dextrose) 520 mls @ 130 mls/hr IV UD PRN PRN Reason: Potassium < 3 Magnesium Sulfate (Magnesium Sulfate) 2 gm in 50 mls @ 50 mls/hr IV UD PRN PRN Reason: Magnesium </= 1.6 Lactulose (Lactulose 20 Gm/30 Ml Oral.Ibeth) 20 gm PO DAILYP PRN PRN Reason: Constipation Lorazepam (Lorazepam 0.5 Mg Tablet) 0.5 mg PO Q6HP PRN PRN Reason: Agitation Last Admin: 03/17/21 03:07 Dose: 0.5 mg Documented by: Metformin HCl (Metformin 500 Mg Tablet) 500 mg PO BIDCC [facility] Last Admin: 03/17/21 09:31 Dose: 500 mg Documented by: Metoprolol Succinate (Metoprolol Succinate 50 Mg Tab.Xl.24h) 50 mg PO QDAY [facility] Last Admin: 03/17/21 09:31 Dose: 50 mg Documented by: Metoprolol Tartrate (Metoprolol Tartrate 5 Mg/5 Ml Vial) 5 mg IV Q2HP PRN PRN Reason: Tachyarrhythmias HR>110 Last Admin: 03/17/21 03:09 Dose: 5 mg Documented by: Morphine Sulfate (Morphine 2 Mg/Ml Vial) 1 - 4 mg IV Q3HP PRN; Protocol PRN Reason: Per Pain Protocol Last Admin: 03/17/21 03:37 Dose: 2 mg Documented by: Morphine Sulfate (Morphine 20 Mg/Ml Oral.Conc) 5 mg PO Q6HP PRN PRN Reason: AIR HUNGER Ondansetron HCl (Ondansetron 4 Mg/2 Ml Vial) 4 mg IV Q4HP PRN PRN Reason: Nausea And Vomiting Oxycodone HCl (Oxycodone Hcl 5 Mg Tablet) 5 mg PO Q4HP PRN; Protocol PRN Reason: Pain Pantoprazole Sodium ([facility]oprazole 40 Mg Tablet) [facility] Last Admin: 03/17/21 09:31 Dose: 40 mg Documented by: Umeclidinium- Vilanterol [Anoro Ellipta] 62.5-25 Mcg Inhaler 1 dose INH QDAY [facility] Last Admin: 03/17/21 09:37 Dose: Not Given Documented by: Ammonium Lactate 12 (% Lotion) 1 dose TOPICAL BID [facility] Last Admin: 03/17/21 09:37 Dose: Not Given Documented by: Polyethylene Glycol (Polyethylene Glycol 3350 17 Gm Packet) 17 gm PO DAILYP PRN PRN Reason: Constipation Potassium Chloride (Potassium Chloride 20 Meq Tablet) 40 meq PO UD PRN PRN Reason: Potssium is 3-3.5 Potassium Chloride (Potassium Chloride 20 Meq Tablet) 40 meq PO UD PRN PRN Reason: Potassium < 3 Quetiapine Fumarate (Quetiapine 25 Mg Tablet) 12.5 mg PO BID [facility] Last Admin: 03/17/21 09:25 Dose: 12.5 mg Documented by: Senna (Sennosides 1 Tablet) 2 tab PO DAILYP PRN PRN Reason: Constipation Simethicone (Simethicone 80 Mg Tab.Chew) 160 mg CHEWED BID [facility] Last Admin: 03/17/21 09:44 Dose: 160 mg Documented by: Sodium Chloride (0.9 % Sodium Chloride 10 Ml Syringe) 10 ml IV Q8 [facility] Last Admin: 03/17/21 06:17 Dose: 10 ml Documented by: Spironolactone (Spironolactone 25 Mg Tablet) 25 mg PO BID [facility] Last Admin: 03/17/21 09:32 Dose: 25 mg Documented by: Torsemide (Torsemide 10 Mg Tablet) 20 mg PO QDAY [facility] Last Admin: 03/17/21 09:32 Dose: 20 mg Documented by: A/P Narrative A/P Narrative: Assessment: 70-year-old male with a history of atrial fibrillation, COPD, obstructive sleep apnea, probable obesity hypoventilation syndrome, obesityBMI 56, severe chronic generalized weakness, wheelchair-bound admitted for acute on chronic hypercapnic respiratory failure. Patient was found to have a large right pleural fusion. *Large right pleural effusion compressing right lung: *Acute on chronic hypercapnic/hypoxic respiratory failure (4L O2 @home and CPAP): 2/2 above -Improving -off/on bipap *Encephalopathy: 2/2 above -Much improved *RAMAKRISHNA on cpap: *Morbid obesity *Respiratory acidosis: 2/2 above *A. fib: On warfarin *?h/o CHF *COPD (on 4L @home): *Opiate dependence with chronic LBP: *Depression/anxiety: *Deconditioning/debility: Patient is wheelchair-bound and unable to transfer by self *pressure ulcers P: -Consider thoracentesis. -prn bipap -wound care -pt/ot -cm for placement -ppx: holding coumadin for possible procedure DNR Time Spent With Patient Time: Total time spent is greater than 50% in coordination of care (as documented) at patient's floor/unit and/or counseling patient: QUALITY Stroke Symptom Onset Unknown: No VTE Deep Vein Thrombosis/Pulmonary Embolism Present on Admission: No
[2021-03-17] MEDS: oxyCODONE HCL 5 MG TABLET PO PRN (14:26)
--- NOTE | 2021-03-17 14:55 | Procedure Note ---
PROC Thoracentesis Consent Obtained: written consent Date of Procedure: 03/17/21 Time Out Performed: Yes Indication: Pleural Effusion Procedure: therapeutic thoracentesis Location: right pleural space Local Anesthetic Used: lidocaine 1% Amount of Anesthesia Used (mLs): 10 Bed Used: yes, pleural effusion confirmed and location marked Preparation: 11 blade used to make shant in skin Post Procedure Exam: awake, alert Patient Tolerated Procedure: well Complications: none Additional comments: Attempted right thoracentesis was not successful, unable to aspirate pleural fluid with the first attempt. The procedure bed positioning became intolerable for the patient due to back pain and the procedure was stopped. No immediate post procedural complications.
[2021-03-18] MEDS: 0.9 % SODIUM CHLORIDE 10 ML SYRINGE IV SCH ×3 (04:57→20:39)
--- NOTE | 2021-03-18 06:37 | XRay Report ---
CLINICAL INFORMATION: follow up pleural effusion COMPARISON: 03/15/2021 FINDINGS: Moderate cardiomegaly is unchanged. Mild mediastinal widening again noted. The pulmonary vessels are unremarkable. Moderate right pleural effusion surrounding right lung is unchanged. Moderate bibasilar airspace disease is similar to prior exam either atelectasis or infiltrate IMPRESSION: No change in moderate right pleural effusion. Moderate bibasilar atelectasis or infiltrate unchanged Interpreted and Authenticated by: Orion Choudhary 03/18/21
[2021-03-18] MEDS: PANTOPRAZOLE 40 MG TABLET PO SCH (06:44)
[2021-03-18 08:03] LABS: INR 1.1 (0.9-1.1); Prothrombin Time 14.5 sec (11.9-14.5)
[2021-03-18 08:09] LABS: Blood Urea Nitrogen 20 mg/dL (8-23); Calcium 9.6 mg/dL (8.6-10.4); Carbon Dioxide 49 mmol/L (22-30); Chloride 85 mmol/L (96-108); Glomerular Filtration Rate 95; Glucose 90 mg/dL (70-105)
[2021-03-18] MEDS: IPRATROPIUM/ALBUTEROL 3 ML AMPUL.NEB NEB SCH ×3 (09:37→21:14)
[2021-03-18] MEDS: metFORMIN 500 MG TABLET PO SCH ×2 (09:54→16:56)
[2021-03-18] MEDS: FLUoxetine HCL 20 MG CAPSULE PO SCH (09:54)
[2021-03-18] MEDS: ACETAMINOPHEN 500 MG TABLET PO SCH ×3 (09:55→20:37)
[2021-03-18] MEDS: DOCUSATE SODIUM 100 MG CAPSULE PO SCH ×2 (09:56→20:37)
[2021-03-18] MEDS: QUEtiapine 25 MG TABLET PO SCH ×2 (09:57→20:36)
[2021-03-18] MEDS: TORSEMIDE 10 MG TABLET PO SCH (09:57)
[2021-03-18] MEDS: busPIRone 5 MG TABLET PO SCH ×2 (10:31→20:38)
[2021-03-18] MEDS: SIMETHICONE 80 MG TAB.CHEW CHEWED SCH ×2 (10:31→20:37)
[2021-03-18] MEDS: AMMONIUM LACTATE 12% TOPICAL SCH ×2 (10:32→20:12)
[2021-03-18] MEDS: Umeclidinium-Vilanterol [Anoro Ellipta] 62.5-25 mcg Inhaler INH SCH (10:32)
[2021-03-18] MEDS ORDERED: diphenhydrAMINE 25 MG CAPSULE PO PRN (12:00)
[2021-03-18] MEDS ORDERED: NYSTATIN POWDER BOTTLE 15GM TOPICAL PRN (12:00)
[2021-03-18 13:42] LABS: Hematocrit 43.2 % (41.0-55.0); Hemoglobin 12.7 g/dL (13.5-16.5); Mean Cell Volume 104.3 fL (80.0-100.0); Mean Corpuscular HGB Conc 29.4 g/dL (31.0-36.0); Mean Platelet Volume 10.7 fL (7.4-10.4); Platelet Count 224 K/mcL (140-440); RBC 4.14 M/mcL (4.50-5.90); Red Cell Distribution Width 14.1 % (11.5-14.5)
[2021-03-18] MEDS: oxyCODONE HCL 5 MG TABLET PO PRN (13:44)
[2021-03-18 14:35] LABS: Band Neutrophils % 2 % (0-10); Basophils % (Manual) 1 % (0-2); Eosinophils % (Manual) 4 % (0-7); Lymphocytes % 15 % (15-49); Macrocytosis 1+ (None Seen); Monocytes % (Manual) 9 % (1-12); Platelet Estimate NORMAL (Normal); RBC Morphology NORMAL (Normal); Reactive Lymphocytes 4 % (0-2); Segmented Neutrophils % 65 % (38-78); Stomatocytes 1+ (None Seen)
[2021-03-18] MEDS ORDERED: 0.9 % SODIUM CHLORIDE 250 ML IV SCH (15:30)
--- NOTE | 2021-03-18 15:37 | XRay Report ---
CLINICAL INFORMATION: POST THORA RT COMPARISON: 03/18/2021 FINDINGS: Following right thoracentesis, small/moderate residual right pleural effusion appreciated. No pneumothorax or other complication. Moderate cardiomegaly is unchanged. Mediastinal widening seen as before. Pulmonary vessels normal. Mild patchy bibasilar atelectasis or infiltrate unchanged IMPRESSION: Small/moderate residual right pleural effusion following right thoracentesis no complication. Minor bibasilar airspace disease likely atelectasis Moderate cardiomegaly-stable. No evidence of CHF Interpreted and Authenticated by: Orion Choudhary 03/18/21
--- NOTE | 2021-03-18 15:40 | Ultrasound Report ---
Ultrasound-guided thoracentesis CLINICAL INFORMATION: Large right pleural effusion TECHNIQUE: Procedure and risks including possibility of bleeding, infection, and pneumothorax were explained to the patient. They understood and wished to proceed. With the patient in upright position, the fluid was first sonographically localized over the posterior right 10th intercostal space at posterior axillary line. The skin overlying this region was marked, prepped and locally anesthetized with 1% lidocaine using a 25-gauge needle to the level the parietal pleura. An 18-gauge Yueh needle was then advanced under sonographic guidance into the pleural fluid and approximately 600 cc of hemorrhagic fluid was aspirated. Post procedure scanning shows only mild residual fluid. Patient tolerated procedure well without apparent complication. Follow-up chest x-ray to be obtained IMPRESSION: Successful thoracentesis yielding 600 cc of hemorrhagic pleural fluid. No apparent complication Interpreted and Authenticated by: Orion Choudhary 03/18/21
[2021-03-18 16:11] LABS: pH,Body Fluid 7.58
[2021-03-18 16:25] LABS: LDH,Pleural Fluid > 1146 U/L (<122)
[2021-03-18] MEDS: SPIRONOLACTONE 25 MG TABLET PO SCH ×2 (16:42→20:37)
[2021-03-18] MEDS: METOPROLOL SUCCINATE 50 MG TAB.XL.24H PO SCH (16:43)
[2021-03-18 16:52] LABS: Appearance,Pleural Fluid Bloody; Color,Pleural Fluid Red; Eosinophils,Pleural Fluid 2 %; Lymphocytes,Pleural Fluid 60 %; Monocytes,Pleural Fluid 27 %; Neutrophils,Pleural Fluid 11 %; Nucleated Cells,Pleural Fld 5200 /cumm
[2021-03-18] MEDS: TRIAMCINOLONE CREAM 0.1% 15G 1 DOSE TUBE TOPICAL SCH ×2 (20:38→20:45)
[2021-03-19 03:34] LABS: INR 1.1 (0.9-1.1); Prothrombin Time 14.8 sec (11.9-14.5)
[2021-03-19] MEDS: 0.9 % SODIUM CHLORIDE 10 ML SYRINGE IV SCH ×3 (04:54→21:30)
[2021-03-19] MEDS: PANTOPRAZOLE 40 MG TABLET PO SCH (07:18)
[2021-03-19] MEDS: IPRATROPIUM/ALBUTEROL 3 ML AMPUL.NEB NEB SCH ×3 (08:47→20:55)
[2021-03-19 09:26] LABS: Basophils # (Auto) 0.02 K/mcL (0.00-0.20); Basophils % (Auto) 0.3 % (0.0-2.0); Eosinophils # (Auto) 0.24 K/mcL (0.00-0.70); Eosinophils % (Auto) 3.2 % (0.0-7.0); Hemoglobin 11.9 g/dL (13.5-16.5); Lymphocytes # (Auto) 1.13 K/mcL (1.50-4.80); Lymphocytes % (Auto) 15.3 % (15.0-49.0); Mean Cell Volume 103.4 fL (80.0-100.0); Mean Corpuscular HGB Conc 29.8 g/dL (31.0-36.0); Mean Platelet Volume 10.5 fL (7.4-10.4); Monocytes # (Auto) 0.64 K/mcL (0.10-0.90); Monocytes % (Auto) 8.7 % (1.0-12.0); Neutrophils % (Auto) 72.5 % (38.0-78.0); Platelet Count 194 K/mcL (140-440); RBC 3.87 M/mcL (4.50-5.90); Red Cell Distribution Width 13.9 % (11.5-14.5); WBC 7.4 K/mcL (4.5-11.0)
[2021-03-19] MEDS: metFORMIN 500 MG TABLET PO SCH ×2 (09:52→17:57)
[2021-03-19] MEDS: FLUoxetine HCL 20 MG CAPSULE PO SCH (09:53)
[2021-03-19] MEDS: QUEtiapine 25 MG TABLET PO SCH ×2 (09:53→21:29)
[2021-03-19] MEDS: TORSEMIDE 10 MG TABLET PO SCH (09:56)
[2021-03-19] MEDS: ACETAMINOPHEN 500 MG TABLET PO SCH ×3 (09:57→21:28)
[2021-03-19] MEDS: DOCUSATE SODIUM 100 MG CAPSULE PO SCH ×2 (09:57→21:28)
[2021-03-19] MEDS: AMMONIUM LACTATE 12% TOPICAL SCH ×2 (09:59→21:30)
[2021-03-19] MEDS: busPIRone 5 MG TABLET PO SCH ×2 (10:11→21:27)
[2021-03-19] MEDS: SIMETHICONE 80 MG TAB.CHEW CHEWED SCH ×2 (10:12→21:29)
[2021-03-19] MEDS: Umeclidinium-Vilanterol [Anoro Ellipta] 62.5-25 mcg Inhaler INH SCH ×2 (10:12→16:49)
[2021-03-19] MEDS: SPIRONOLACTONE 25 MG TABLET PO SCH (10:14)
[2021-03-19] MEDS: METOPROLOL SUCCINATE 50 MG TAB.XL.24H PO SCH (10:15)
[2021-03-19] MEDS: TRIAMCINOLONE CREAM 0.1% 15G 1 DOSE TUBE TOPICAL SCH ×2 (10:45→21:46)
[2021-03-19 11:03] LABS: Blood Urea Nitrogen 16 mg/dL (8-23); Carbon Dioxide 43 mmol/L (22-30); Chloride 88 mmol/L (96-108); Glomerular Filtration Rate 101; Glucose 130 mg/dL (70-105)
[2021-03-19] MEDS ORDERED: POTASSIUM CHLORIDE 40 MEQ in DEXTROSE 5% IN WATER 500 ML IV PRN (13:26)
[2021-03-19] MEDS ORDERED: METOPROLOL TARTRATE 5 MG/5 ML VIAL IV PRN (13:26)
[2021-03-19] MEDS ORDERED: POTASSIUM CHLORIDE 20 MEQ TABLET PO PRN ×2 (13:26)
[2021-03-19] MEDS ORDERED: LACTULOSE 20 GM/30 ML ORAL.SOL PO PRN (13:26)
[2021-03-19] MEDS ORDERED: morphine 20 MG/ML ORAL.CONC PO PRN (13:26)
[2021-03-19] MEDS ORDERED: ALBUTEROL SULFATE 200 PUFF INHALER INH PRN (13:26)
[2021-03-19] MEDS ORDERED: ACETAMINOPHEN 325 MG TABLET PO PRN (13:26)
[2021-03-19] MEDS ORDERED: POLYETHYLENE GLYCOL 3350 17 GM PACKET PO PRN (13:26)
[2021-03-19] MEDS ORDERED: LACTOPEROXI/GLUC OXID/POT THIO 1 EACH GEL..EA. TOPICAL PRN (13:26)
[2021-03-19] MEDS ORDERED: IPRATROPIUM/ALBUTEROL 3 ML AMPUL.NEB NEB PRN (13:26)
[2021-03-19] MEDS ORDERED: CALCIUM CARBONATE 500 MG TAB.CHEW PO PRN (13:26)
[2021-03-19] MEDS ORDERED: LORazepam 0.5 MG TABLET PO PRN (13:26)
[2021-03-19] MEDS ORDERED: MAGNESIUM SULFATE 2 GM/50 ML BAG IV PRN (13:26)
[2021-03-19] MEDS ORDERED: ONDANSETRON 4 MG/2 ML VIAL IV PRN (13:26)
[2021-03-19] MEDS ORDERED: SENNOSIDES 1 TABLET PO PRN (13:26)
[2021-03-19] MEDS ORDERED: METOPROLOL SUCCINATE 50 MG TAB.XL.24H PO ONE (15:46)
--- NOTE | 2021-03-19 16:20 | Internal Med Progress Note ---
SUBJECTIVE Subjective Patient information: Note initiated : 03/19/21 at 4:12 pm Service Date, if different from initiated Date: [] Patient: James Hyde 70 y/o M admitted on 03/15/21 for Hypoxia. Chief Complaint: [] Interval history: History of present illness: Mr. Hyde is a 70 year old M Patient was found at the nursing facility without his CPAP or oxygen on. His oxygen was 39% and he was altered. EMS was called placed on BiPAP. In the ED is found to have a pH 7.19 with a CO2 of greater than 124. Is continued on BiPAP and improved mentation follow-up ABG improving. Patient denies any current complaints coughing shortness of breath no current chest pain. He chronically wears 4 L of oxygen. *Discussion with about him and he has been a DNR/ comfort care at the facility and she was surprised that the patient was sent to the ED but it sounds like the patient called 911 himself. 03/16 Patient comfortable on BiPAP is been on nasal cannula occasionally and then placed back on. INR decreased some likely not enough for Thora, will discuss with radiology. 03/17 Patient on on nasal cannula. Feeling little better. INR normalized, attempted thoracentesis at bedside was not successful. No new pains or complaints. 03/18-feels about the same as yesterday, radiology thoracentesis drained 600 cc bloody fluid. Hemoglobin dropped 14.3->12.7 03/19-The patient feels ok, hemoglobin stable. Respiratory status stable. Discussed discharge, the patient does not want to return to [facility] but does not feel she can take care of the patient. General: morbidly obese Head: Atraumatic, normal inspection. Eyes: normal appearance, no scleral icterus. Neck: full ROM Respiratory: no respiratory distress. Cardiovascular: normal rate, irregular rhythm, S1, S2. GI/Abdominal: obesity distended soft, nontender, no guarding. GI: donovan catheter Extremities: full range of motion, nontender, excoriations on buttock. Neurological: CN II-XII intact, intact sensation, weakness in all extremities. Psychiatric: normal mood. Skin: warm, normal color Constitutional Vitals: Vital Signs Temp Pulse Resp BP Pulse Ox 98.4 F 99 H 29 H 94/72 96 03/19/21 12:01 03/19/21 15:10 03/19/21 15:11 03/19/21 15:11 03/19/21 15:11 Period Temp Pulse Resp BP Sys/Aguayo Pulse Ox Last 24 Hr 97.2 F-98.7 F 11-117 14-36 91-152/61-94 92-99 Intake and Output 03/19/21 03/19/21 03/19/21 05:59 13:59 21:59 Intake Total 960 240 Output Total 500 500 Balance 460 -260 Intake & Output: Intake & Output 03/19/21 03/19/21 03/19/21 05:59 13:59 21:59 Intake Total 960 240 Output Total 500 500 Balance 460 -260 Intake: Oral 960 240 Output: Urine Catheter Amount 500 500 Other: Meal Dinner Breakfast Percent of Meal Consumed 75% 75% Feeding Ability Independent Independent Urine Appearance Clear Uretheral (Donovan) Clear Urine Color Light Susan Dark Yellow Uretheral (Donovan) Dark Susan Urine Odor Normal OBJ DATA Labs CBC & Chem 7: 03/19/21 08:19 03/19/21 09:15 Labs: Abnormal Lab Results 03/19/21 03/19/21 03/19/21 09:15 08:19 02:40 RBC 3.87 L Hgb 11.9 L 11.7 L Hct 40.0 L MCV 103.4 H MCHC 29.8 L MPV 10.5 H Lymph # (Auto) 1.13 L Reactive Lymphocytes Macrocytosis Stomatocytes PT INR Chloride 88 L Carbon Dioxide 43 H* Anion Gap 5.0 L Creatinine 0.6 L Glucose 130 H Lactate Dehydrogenase Globulin Albumin/Globulin Ratio Triglycerides Pleural LDH 03/19/21 03/18/21 03/18/21 02:40 20:26 14:40 RBC Hgb 11.6 L Hct MCV MCHC MPV Lymph # (Auto) Reactive Lymphocytes Macrocytosis Stomatocytes PT 14.8 H INR Chloride Carbon Dioxide Anion Gap Creatinine Glucose Lactate Dehydrogenase Globulin Albumin/Globulin Ratio Triglycerides Pleural LDH > 1146 H 03/18/21 03/18/21 03/17/21 13:32 05:49 09:30 RBC 4.14 L Hgb 12.7 L Hct MCV 104.3 H MCHC 29.4 L MPV 10.7 H Lymph # (Auto) Reactive Lymphocytes 4 H Macrocytosis 1+ A Stomatocytes 1+ A PT 15.9 H INR 1.2 H Chloride 85 L Carbon Dioxide 49 H* Anion Gap 3.0 L Creatinine Glucose Lactate Dehydrogenase Globulin Albumin/Globulin Ratio Triglycerides Pleural LDH 03/17/21 05:56 RBC Hgb Hct MCV MCHC MPV Lymph # (Auto) Reactive Lymphocytes Macrocytosis Stomatocytes PT INR Chloride 83 L Carbon Dioxide 47 H* Anion Gap 6.0 L Creatinine 0.6 L Glucose 111 H Lactate Dehydrogenase 241 H Globulin 3.9 H Albumin/Globulin Ratio 0.8 L Triglycerides 239 H Pleural LDH Meds: Medications Acetaminophen (Acetaminophen 500 Mg Tablet) 1,000 mg PO TID [facility]; Protocol Last Admin: 03/19/21 15:42 Dose: 1,000 mg Documented by: Acetaminophen (Acetaminophen 325 Mg Tablet) 650 mg PO Q6HP PRN PRN Reason: PAIN/FEVER > 101 Albuterol Sulfate (Albuterol Sulfate 200 Puff Inhaler) 2 puff INH QIDP PRN PRN Reason: Wheezing Albuterol/Ipratropium (Ipratropium/Albuterol 3 Ml Ampul.Neb) 3 ml NEB TID [facility] Last Admin: 03/19/21 15:11 Dose: 3 ml Documented by: Albuterol/Ipratropium (Ipratropium/Albuterol 3 Ml Ampul.Neb) 3 ml NEB Q4HP PRN PRN Reason: Shortness Of Breath Buspirone HCl (Buspirone 5 Mg Tablet) 10 mg PO BID [facility] Calcium Carbonate/Glycine (Calcium Carbonate 500 Mg Tab.Chew) 500 mg PO QDAY PRN PRN Reason: Indigestion Diphenhydramine HCl (Diphenhydramine 25 Mg Capsule) 25 mg PO Q6HP PRN PRN Reason: Allergic Symptoms Docusate Sodium (Docusate Sodium 100 Mg Capsule) 100 mg PO BID [facility] Fluoxetine HCl (Fluoxetine Hcl 20 Mg Capsule) 20 mg PO DAILY [facility] Glucose Oxid/Lactoperoxid/Muramidas (Lactoperoxi/Gluc Oxid/Pot Thio 1 Each Gel..Ea.) 1 each TOPICAL BID PRN PRN Reason: Dry Mouth Magnesium Sulfate (Magnesium Sulfate) 2 gm in 50 mls @ 50 mls/hr IV UD PRN PRN Reason: Magnesium </= 1.6 Potassium Chloride 40 meq/ (Dextrose) 520 mls @ 130 mls/hr IV UD PRN PRN Reason: Potassium < 3 Lactulose (Lactulose 20 Gm/30 Ml Oral.Ibeth) 20 gm PO DAILYP PRN PRN Reason: Constipation Lorazepam (Lorazepam 0.5 Mg Tablet) 0.5 mg PO Q6HP PRN PRN Reason: Agitation Metformin HCl (Metformin 500 Mg Tablet) 500 mg PO BIDCC [facility] Metoprolol Succinate (Metoprolol Succinate 50 Mg Tab.Xl.24h) 50 mg PO QDAY [facility] Metoprolol Tartrate (Metoprolol Tartrate 5 Mg/5 Ml Vial) 5 mg IV Q2HP PRN PRN Reason: Tachyarrhythmias HR>110 Last Admin: 03/19/21 14:33 Dose: 5 mg Documented by: Morphine Sulfate (Morphine 2 Mg/Ml Vial) 1 - 4 mg IV Q3HP PRN; Protocol PRN Reason: Per Pain Protocol Morphine Sulfate (Morphine 20 Mg/Ml Oral.Conc) 5 mg PO Q6HP PRN PRN Reason: AIR HUNGER Nystatin (Nystatin Powder Bottle 15gm) 1 dose TOPICAL TIDP PRN PRN Reason: Skin Irritation Ondansetron HCl (Ondansetron 4 Mg/2 Ml Vial) 4 mg IV Q4HP PRN PRN Reason: Nausea And Vomiting Oxycodone HCl (Oxycodone Hcl 5 Mg Tablet) 5 mg PO Q4HP PRN; Protocol PRN Reason: Pain Pantoprazole Sodium (Pantoprazole 40 Mg Tablet) 40 mg PO QAMAC [facility] Umeclidinium- Vilanterol [Anoro Ellipta] 62.5-25 Mcg Inhaler 1 dose INH QDAY [facility] Ammonium Lactate 12 (% Lotion) 1 dose TOPICAL BID [facility] Polyethylene Glycol (Polyethylene Glycol 3350 17 Gm Packet) 17 gm PO DAILYP PRN PRN Reason: Constipation Potassium Chloride (Potassium Chloride 20 Meq Tablet) 40 meq PO UD PRN PRN Reason: Potssium is 3-3.5 Potassium Chloride (Potassium Chloride 20 Meq Tablet) 40 meq PO UD PRN PRN Reason: Potassium < 3 Quetiapine Fumarate (Quetiapine 25 Mg Tablet) 12.5 mg PO BID [facility] Senna (Sennosides 1 Tablet) 2 tab PO DAILYP PRN PRN Reason: Constipation Simethicone (Simethicone 80 Mg Tab.Chew) 160 mg CHEWED BID [facility] Sodium Chloride (0.9 % Sodium Chloride 10 Ml Syringe) 10 ml IV Q8 [facility] Last Admin: 03/19/21 14:34 Dose: 10 ml Documented by: Spironolactone (Spironolactone 25 Mg Tablet) 25 mg PO BID [facility] Torsemide (Torsemide 10 Mg Tablet) 20 mg PO QDAY [facility] Triamcinolone Acetonide (Triamcinolone Cream 0.1% 15g 1 Dose Tube) 1 dose TOPICAL BID [facility] Stop: 03/23/21 20:59 A/P Narrative A/P Narrative: Assessment: 70-year-old male with a history of atrial fibrillation, COPD, obstructive sleep apnea, probable obesity hypoventilation syndrome, obesityBMI 56, severe chronic generalized weakness, wheelchair-bound admitted for acute on chronic hypercapnic respiratory failure. Patient was found to have a large right pleural fusion s/p thoracentesis. *Large right pleural effusion compressing right lung: s/p thoracentesis -elevated LDH and bloody effusion *Acute on chronic hypercapnic/hypoxic respiratory failure (4L O2 @home and CPAP) : 2/2 above -Improving -off/on bipap *Resolved encephalopathy: *Obesity hypoventilation syndrome *RAMAKRISHNA: not compliant with home/SNF CPAP but does ok with hospital CPAP *Morbid obesity: BMI 56 *A. fib: was on warfarin prior to admission *Hx of congestive heart failure *COPD (on 4L @home): *Opiate dependence with chronic LBP: *Depression/anxiety: *Deconditioning/debility: Patient is wheelchair-bound and unable to transfer by self *pressure ulcers *Polypharmacy P: -Increase Toprol to 100 mg BID for better rate control, hold spironolactone. -CPAP at bedtime, prn BiPAP -wound care -continue home medications except coumadin -pt/ot -f/u pleural fluid cytology -cm for placement -ppx: holding coumadin for now, resume when hemoglobin trend stable -disposition: SNF vs home with home health DNR Time Spent With Patient Time: Total time spent is greater than 50% in coordination of care (as documented) at patient's floor/unit and/or counseling patient: QUALITY Stroke Symptom Onset Unknown: No VTE Deep Vein Thrombosis/Pulmonary Embolism Present on Admission: No
[2021-03-19] MEDS ORDERED: SPIRONOLACTONE 25 MG TABLET PO SCH (21:00)
[2021-03-20] MEDS: 0.9 % SODIUM CHLORIDE 10 ML SYRINGE IV SCH ×3 (05:46→22:37)
[2021-03-20] MEDS: metFORMIN 500 MG TABLET PO SCH ×2 (07:00→17:44)
[2021-03-20] MEDS: PANTOPRAZOLE 40 MG TABLET PO SCH (07:00)
[2021-03-20 07:42] LABS: INR 1.1 (0.9-1.1); Prothrombin Time 14.9 sec (11.9-14.5)
[2021-03-20 07:43] LABS: Basophils # (Auto) 0.01 K/mcL (0.00-0.20); Basophils % (Auto) 0.1 % (0.0-2.0); Blood Urea Nitrogen 17 mg/dL (8-23); Calcium 8.6 mg/dL (8.6-10.4); Carbon Dioxide 45 mmol/L (22-30); Chloride 85 mmol/L (96-108); Eosinophils # (Auto) 0.22 K/mcL (0.00-0.70); Eosinophils % (Auto) 3.2 % (0.0-7.0); Glomerular Filtration Rate 101; Glucose 90 mg/dL (70-105); Hematocrit 37.8 % (41.0-55.0); Hemoglobin 11.1 g/dL (13.5-16.5); Lymphocytes # (Auto) 1.16 K/mcL (1.50-4.80); Lymphocytes % (Auto) 16.7 % (15.0-49.0); Mean Corpuscular HGB Conc 29.4 g/dL (31.0-36.0); Mean Platelet Volume 10.5 fL (7.4-10.4); Monocytes # (Auto) 0.58 K/mcL (0.10-0.90); Monocytes % (Auto) 8.3 % (1.0-12.0); Neutrophils % (Auto) 71.7 % (38.0-78.0); Platelet Count 179 K/mcL (140-440); Red Cell Distribution Width 13.8 % (11.5-14.5)
[2021-03-20] MEDS: DOCUSATE SODIUM 100 MG CAPSULE PO SCH ×2 (08:52→20:48)
[2021-03-20] MEDS: QUEtiapine 25 MG TABLET PO SCH ×2 (08:52→20:45)
[2021-03-20] MEDS: IPRATROPIUM/ALBUTEROL 3 ML AMPUL.NEB NEB SCH ×3 (08:53→20:55)
[2021-03-20] MEDS: TORSEMIDE 10 MG TABLET PO SCH (08:54)
[2021-03-20] MEDS: FLUoxetine HCL 20 MG CAPSULE PO SCH (08:54)
[2021-03-20] MEDS: busPIRone 5 MG TABLET PO SCH ×2 (08:54→20:44)
[2021-03-20] MEDS: SIMETHICONE 80 MG TAB.CHEW CHEWED SCH ×2 (08:54→20:44)
[2021-03-20] MEDS: ACETAMINOPHEN 500 MG TABLET PO SCH ×3 (08:54→20:45)
[2021-03-20] MEDS: TRIAMCINOLONE CREAM 0.1% 15G 1 DOSE TUBE TOPICAL SCH ×3 (08:55→20:47)
[2021-03-20] MEDS: Umeclidinium-Vilanterol [Anoro Ellipta] 62.5-25 mcg Inhaler INH SCH (08:56)
[2021-03-20] MEDS: METOPROLOL SUCCINATE 50 MG TAB.XL.24H PO SCH (08:57)
[2021-03-20] MEDS: diphenhydrAMINE 25 MG CAPSULE PO PRN ×2 (09:00→20:49)
[2021-03-20] MEDS ORDERED: METOPROLOL SUCCINATE 50 MG TAB.XL.24H PO SCH (09:00)
[2021-03-20] MEDS: AMMONIUM LACTATE 12% TOPICAL SCH ×2 (09:04→20:47)
[2021-03-20] MEDS: oxyCODONE HCL 5 MG TABLET PO PRN (12:15)
[2021-03-20] MEDS ORDERED: IOPAMIDOL 100 ML BOTTLE IV ONE (12:56)
[2021-03-20] MEDS ORDERED: LOPERAMIDE 2 MG CAPSULE PO PRN (13:54)
--- NOTE | 2021-03-20 14:05 | Cat Scan Report ---
CLINICAL INFORMATION: Back pain. Evaluate for hematoma. Right thoracentesis two days prior-03/18/2021 COMPARISON: Chest CT 03/15/2021. TECHNIQUE: Enteric contrast was utilized. 80 cc of Isovue-370 were injected intravenously, and 50 seconds later 2.5 mm helical slices were obtained from the lung apices through the subtrochanteric regions of the femurs. Following reconstruction, 2.5 mm sagittal, coronal and axial reformatted images were processed and reviewed at multiple windows and levels. 7 mm MIP reconstructions were obtained through the lungs to optimize nodule detection.The exam was performed using radiation dose optimization techniques including, but not limited to, automated exposure control, adjustment of the mA and/or kV according to patient size and use of iterative reconstruction technique. FINDINGS: Pulmonary parenchymal windows show moderate right hemothorax resulting in subtotal compressive atelectasis of the right lower lobe with only anterior basilar segment sparing. There is also subsegmental atelectasis of the posterior segment right upper lobe. No significant change since the 03/15/[address] Small left hemothorax with atelectasis in the medial basilar segment left lower lobe is also unchanged. There is no pneumothorax or other complication from thoracentesis Mediastinal windows show the thoracic aorta and pulmonary arteries are normal in contour and caliber. 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 Other aortic branches are normal. The heart is mildly enlarged with scattered calcific and fibrofatty plaque. Abdominal images show mild fatty change within the liver. No focal hepatic lesion. Multiple small cholesterol stones layer dependently within the gallbladder. Gallbladder is contracted. Intrahepatic and common bile ducts are normal caliber: CBD is 5 mm. Pancreas and left kidney are normal. 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 There is no free air, free fluid or adenopathy Pelvic images show a Galan catheter properly positioned within the urinary bladder which is decompressed. Prostate is normal in size with calcification in the right central zone. There are multiple diverticuli within the sigmoid colon: the remainder of the large bowel, appendix, small bowel and stomach are grossly normal. Bone windows show no focal osseous lesions. At L4-5, there is severe central canal, bilateral lateral recess and IV foraminal with impingement of the exiting L4 and descending L5 nerve roots. At L3-4, moderate central canal and bilateral lateral recess stenosis results in indentation of the descending L4 nerve roots. IMPRESSION: 1. Moderate right hemothorax resulting in subtotal compressive atelectasis of the right lower lobe and subsegmental compressive atelectasis of the posterior right lower lobe. This is actually unchanged from the preprocedure CT five days prior 03/15/2021. There is no evidence of complication from thoracentesis: no evidence of hematoma in the soft tissues of the posterior chest wall, pneumothorax etc. 2. Small left hemothorax in atelectasis medial basilar segment left lower lobe also stable. 3. 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 This should be charted because trauma in the adjacent esophagus could potentially result in brainstem infarct. 4. Cholelithiasis. 5. Nonrotated right kidney. 6. Sigmoid diverticulosis, but no evidence of diverticulitis 7. Degenerative stenosis in the central canal lateral recess and IV foramen L3-4 and L4-5. Please correlate with L4-L5 radiculopathy. Interpreted and Authenticated by: Orion Choudhary 03/20/21
--- NOTE | 2021-03-20 17:06 | Internal Med Progress Note ---
SUBJECTIVE Subjective Patient information: Note initiated : 03/20/21 at 4:58 pm Service Date, if different from initiated Date: [] Patient: James Hyde 70 y/o M admitted on 03/15/21 for Hypoxia. Chief Complaint: [] Interval history: History of present illness: Mr. Hyde is a 70 year old M Patient was found at the nursing facility without his CPAP or oxygen on. His oxygen was 39% and he was altered. EMS was called placed on BiPAP. In the ED is found to have a pH 7.19 with a CO2 of greater than 124. Is continued on BiPAP and improved mentation follow-up ABG improving. Patient denies any current complaints coughing shortness of breath no current chest pain. He chronically wears 4 L of oxygen. *Discussion with about him and he has been a DNR/ comfort care at the facility and she was surprised that the patient was sent to the ED but it sounds like the patient called 911 himself. 03/16 Patient comfortable on BiPAP is been on nasal cannula occasionally and then placed back on. INR decreased some likely not enough for Thora, will discuss with radiology. 03/17 Patient on on nasal cannula. Feeling little better. INR normalized, attempted thoracentesis at bedside was not successful. No new pains or complaints. 03/18-feels about the same as yesterday, radiology thoracentesis drained 600 cc bloody fluid. Hemoglobin dropped 14.3->12.7 03/19-The patient feels ok, hemoglobin trend stable. Respiratory status stable. CT chest/abd/pelvis ordered. 03/20-CT chest shows moderate size hemothorax, discussed with surgery-recommended chest tube. Radiology unable to place chest tube with CT guidance due to body habitus. Discussed transfer with [place] but no beds available. Discussed with [facility]-awaiting call back. Hemoglobin slightly down trending, stable respiratory status. General: morbidly obese Head: Atraumatic, normal inspection. Eyes: normal appearance, no scleral icterus. Neck: full ROM Respiratory: no respiratory distress. Cardiovascular: normal rate, irregular rhythm, S1, S2. GI/Abdominal: obesity distended soft, nontender, no guarding. GI: donovan catheter Extremities: full range of motion, nontender, excoriations on buttock. Neurological: CN II-XII intact, intact sensation, weakness in all extremities. Psychiatric: normal mood. Skin: warm, normal color Constitutional Vitals: Vital Signs Temp Pulse Resp BP Pulse Ox 98.6 F 93 H 21 98/65 97 03/20/21 15:02 03/20/21 15:13 03/20/21 16:17 03/20/21 16:01 03/20/21 16:17 Period Temp Pulse Resp BP Sys/Aguayo Pulse Ox Last 24 Hr 97 F-98.6 F 91-104 14-28 89-139/52-119 92-99 Intake and Output 03/20/21 03/20/21 03/20/21 05:59 13:59 21:59 Intake Total 900 420 Output Total 700 1075 Balance -700 900 -655 Intake & Output: Intake & Output 03/20/21 03/20/21 03/20/21 05:59 13:59 21:59 Intake Total 900 420 Output Total 700 1075 Balance -700 900 -655 Intake: Nourishment/Supplement quantity 240 (ml) Oral 660 420 Output: Urine Catheter Amount 700 1075 Other: Meal Lunch Percent of Meal Consumed 100% Feeding Ability Assist with Tray Set Up Nourishment/Supplement name Boost Breeze Urine Appearance Clear Clear Urine Color Light Susan Light Susan Urine Odor Normal Stool Size Large Stool Color Brown Stool Consistency Soft OBJ DATA Labs CBC & Chem 7: 03/20/21 04:55 03/20/21 04:55 Labs: Abnormal Lab Results 03/20/21 03/20/21 03/20/21 04:55 04:55 04:55 RBC 3.60 L Hgb 11.1 L Hct 37.8 L MCV 105.0 H MCHC 29.4 L MPV 10.5 H Lymph # (Auto) 1.16 L Reactive Lymphocytes Macrocytosis Stomatocytes PT 14.9 H Chloride 85 L Carbon Dioxide 45 H* Anion Gap 4.0 L Creatinine 0.6 L Glucose Pleural LDH 03/19/21 03/19/21 03/19/21 09:15 08:19 02:40 RBC 3.87 L Hgb 11.9 L 11.7 L Hct 40.0 L MCV 103.4 H MCHC 29.8 L MPV 10.5 H Lymph # (Auto) 1.13 L Reactive Lymphocytes Macrocytosis Stomatocytes PT Chloride 88 L Carbon Dioxide 43 H* Anion Gap 5.0 L Creatinine 0.6 L Glucose 130 H Pleural LDH 03/19/21 03/18/21 03/18/21 02:40 20:26 14:40 RBC Hgb 11.6 L Hct MCV MCHC MPV Lymph # (Auto) Reactive Lymphocytes Macrocytosis Stomatocytes PT 14.8 H Chloride Carbon Dioxide Anion Gap Creatinine Glucose Pleural LDH > 1146 H 03/18/21 03/18/21 13:32 05:49 RBC 4.14 L Hgb 12.7 L Hct MCV 104.3 H MCHC 29.4 L MPV 10.7 H Lymph # (Auto) Reactive Lymphocytes 4 H Macrocytosis 1+ A Stomatocytes 1+ A PT Chloride 85 L Carbon Dioxide 49 H* Anion Gap 3.0 L Creatinine Glucose Pleural LDH Meds: Medications Acetaminophen (Acetaminophen 500 Mg Tablet) 1,000 mg PO TID [facility]; Protocol Last Admin: 03/20/21 15:25 Dose: 1,000 mg Documented by: Acetaminophen (Acetaminophen 325 Mg Tablet) 650 mg PO Q6HP PRN PRN Reason: PAIN/FEVER > 101 Albuterol Sulfate (Albuterol Sulfate 200 Puff Inhaler) 2 puff INH QIDP PRN PRN Reason: Wheezing Albuterol/Ipratropium (Ipratropium/Albuterol 3 Ml Ampul.Neb) 3 ml NEB TID [facility] Last Admin: 03/20/21 14:55 Dose: 3 ml Documented by: Albuterol/Ipratropium (Ipratropium/Albuterol 3 Ml Ampul.Neb) 3 ml NEB Q4HP PRN PRN Reason: Shortness Of Breath Buspirone HCl (Buspirone 5 Mg Tablet) 10 mg PO BID [facility] Last Admin: 03/20/21 08:54 Dose: 10 mg Documented by: Calcium Carbonate/Glycine (Calcium Carbonate 500 Mg Tab.Chew) 500 mg PO QDAY PRN PRN Reason: Indigestion Diphenhydramine HCl (Diphenhydramine 25 Mg Capsule) 25 mg PO Q6HP PRN PRN Reason: Allergic Symptoms Last Admin: 03/20/21 09:00 Dose: 25 mg Documented by: Docusate Sodium (Docusate Sodium 100 Mg Capsule) 100 mg PO BID [facility] Last Admin: 03/20/21 08:52 Dose: 100 mg Documented by: Fluoxetine HCl (Fluoxetine Hcl 20 Mg Capsule) 20 mg PO DAILY [facility] Last Admin: 03/20/21 08:54 Dose: 20 mg Documented by: Glucose Oxid/Lactoperoxid/Muramidas (Lactoperoxi/Gluc Oxid/Pot Thio 1 Each Gel..Ea.) 1 each TOPICAL BID PRN PRN Reason: Dry Mouth Magnesium Sulfate (Magnesium Sulfate) 2 gm in 50 mls @ 50 mls/hr IV UD PRN PRN Reason: Magnesium </= 1.6 Potassium Chloride 40 meq/ (Dextrose) 520 mls @ 130 mls/hr IV UD PRN PRN Reason: Potassium < 3 Lactulose (Lactulose 20 Gm/30 Ml Oral.Ibeth) 20 gm PO DAILYP PRN PRN Reason: Constipation Loperamide HCl (Loperamide 2 Mg Capsule) 2 mg PO Q4HP PRN PRN Reason: Diarrhea Last Admin: 03/20/21 14:38 Dose: 2 mg Documented by: Lorazepam (Lorazepam 0.5 Mg Tablet) 0.5 mg PO Q6HP PRN PRN Reason: Agitation Metformin [facility] ([facility] 500 Mg Tablet) [facility] Last Admin: 03/20/21 07:00 Dose: 500 mg Documented by: Metoprolol Succinate (Metoprolol Succinate 50 Mg Tab.Xl.24h) 100 mg PO QDAY [facility] Last Admin: 03/20/21 08:57 Dose: 100 mg Documented by: Metoprolol Tartrate (Metoprolol Tartrate 5 Mg/5 Ml Vial) 5 mg IV Q2HP PRN PRN Reason: Tachyarrhythmias HR>110 Last Admin: 03/19/21 14:33 Dose: 5 mg Documented by: Morphine Sulfate (Morphine 2 Mg/Ml Vial) 1 - 4 mg IV Q3HP PRN; Protocol PRN Reason: Per Pain Protocol Morphine Sulfate (Morphine 20 Mg/Ml Oral.Conc) 5 mg PO Q6HP PRN PRN Reason: [employer] Nystatin (Nystatin Powder Bottle 15gm) 1 dose TOPICAL TIDP PRN PRN Reason: Skin Irritation Ondansetron HCl (Ondansetron 4 Mg/2 Ml Vial) 4 mg IV Q4HP PRN PRN Reason: Nausea And Vomiting Oxycodone HCl (Oxycodone Hcl 5 Mg Tablet) 5 mg PO Q4HP PRN; Protocol PRN Reason: Pain Last Admin: 03/20/21 12:15 Dose: 5 mg Documented by: Pantoprazole Sodium (Pantoprazole 40 Mg Tablet) 40 mg PO QAMAC [facility] Last Admin: 03/20/21 07:00 Dose: 40 mg Documented by: Umeclidinium- Vilanterol [Anoro Ellipta] 62.5-25 Mcg Inhaler 1 dose INH QDAY [facility] Last Admin: 03/20/21 08:56 Dose: 1 dose Documented by: Ammonium Lactate 12 (% Lotion) 1 dose TOPICAL BID [facility] Last Admin: 03/20/21 09:04 Dose: Not Given Documented by: Polyethylene Glycol (Polyethylene Glycol 3350 17 Gm Packet) 17 gm PO DAILYP PRN PRN Reason: Constipation Potassium Chloride (Potassium Chloride 20 Meq Tablet) 40 meq PO UD PRN PRN Reason: Potssium is 3-3.5 Potassium Chloride (Potassium Chloride 20 Meq Tablet) 40 meq PO UD PRN PRN Reason: Potassium < 3 Quetiapine Fumarate (Quetiapine 25 Mg Tablet) 12.5 mg PO BID [facility] Last Admin: 03/20/21 08:52 Dose: 12.5 mg Documented by: Senna (Sennosides 1 Tablet) 2 tab PO DAILYP PRN PRN Reason: Constipation Simethicone (Simethicone 80 Mg Tab.Chew) 160 mg CHEWED BID [facility] Last Admin: 03/20/21 08:54 Dose: 160 mg Documented by: Sodium Chloride (0.9 % Sodium Chloride 10 Ml Syringe) 10 ml IV Q8 [facility] Last Admin: 03/20/21 13:42 Dose: 10 ml Documented by: Torsemide (Torsemide 10 Mg Tablet) 20 mg PO QDAY [facility] Last Admin: 03/20/21 08:54 Dose: 20 mg Documented by: Triamcinolone Acetonide (Triamcinolone Cream 0.1% 15g 1 Dose Tube) 1 dose TOPICAL BID [facility] Stop: 03/23/21 20:59 Last Admin: 03/20/21 09:30 Dose: Not Given Documented by: A/P Narrative A/P Narrative: Assessment: 70-year-old male with a history of atrial fibrillation, COPD, obstructive sleep apnea, probable obesity hypoventilation syndrome, obesityBMI 56, severe chronic generalized weakness, wheelchair-bound admitted for acute on chronic hypercapnic respiratory failure. Patient was found to have a large right pleural fusion s/p thoracentesis. *Moderate right hemothorax: s/p 600 ml bloody thoracentesis *Acute on chronic hypercapnic/hypoxic respiratory failure (4L O2 @home and CPAP): -improving -off/on bipap *Resolved encephalopathy: *Obesity hypoventilation syndrome *RAMAKRISHNA: not compliant with home/SNF CPAP but does ok with hospital NIV *Morbid obesity: BMI 56 *A. fib: was on warfarin prior to admission *Hx of congestive heart failure *COPD (on 4L @home): *Opiate dependence with chronic LBP: *Depression/anxiety: *Deconditioning/debility: Patient is wheelchair-bound and unable to transfer by self *Pressure wounds *Polypharmacy P: -Awaiting transfer to higher level of care for hemothorax-possibly [facility]. -Following hemoglobin. -Continue Toprol, holding spironolactone. -CPAP at bedtime, prn BiPAP -wound care -continue home medications except coumadin and spironolactone -pt/ot -f/u pleural fluid cytology -dvt ppx: SCD, holding coumadin for now due to hemothorax -disposition: SNF vs home with home health -DNR Time Spent With Patient Time: Total time spent is greater than 50% in coordination of care (as documented) at patient's floor/unit and/or counseling patient: QUALITY Stroke Symptom Onset Unknown: No VTE Deep Vein Thrombosis/Pulmonary Embolism Present on Admission: No
[2021-03-21] MEDS: 0.9 % SODIUM CHLORIDE 10 ML SYRINGE IV SCH ×3 (06:00→20:46)
[2021-03-21 06:42] LABS: Basophils # (Auto) 0.03 K/mcL (0.00-0.20); Basophils % (Auto) 0.4 % (0.0-2.0); Eosinophils # (Auto) 0.31 K/mcL (0.00-0.70); Hematocrit 39.3 % (41.0-55.0); Hemoglobin 11.5 g/dL (13.5-16.5); Lymphocytes # (Auto) 1.12 K/mcL (1.50-4.80); Lymphocytes % (Auto) 14.4 % (15.0-49.0); Mean Cell Volume 106.2 fL (80.0-100.0); Mean Corpuscular HGB Conc 29.3 g/dL (31.0-36.0); Mean Platelet Volume 10.5 fL (7.4-10.4); Monocytes # (Auto) 0.81 K/mcL (0.10-0.90); Monocytes % (Auto) 10.4 % (1.0-12.0); Neutrophils % (Auto) 70.8 % (38.0-78.0); Platelet Count 186 K/mcL (140-440); Red Cell Distribution Width 13.9 % (11.5-14.5); WBC 7.8 K/mcL (4.5-11.0)
[2021-03-21 07:09] LABS: INR 1.1 (0.9-1.1); Prothrombin Time 14.3 sec (11.9-14.5)
[2021-03-21 07:42] LABS: Blood Urea Nitrogen 14 mg/dL (8-23); Calcium 9.2 mg/dL (8.6-10.4); Carbon Dioxide 46 mmol/L (22-30); Chloride 89 mmol/L (96-108); Glomerular Filtration Rate 95; Glucose 90 mg/dL (70-105)
[2021-03-21] MEDS: PANTOPRAZOLE 40 MG TABLET PO SCH (08:12)
[2021-03-21] MEDS: IPRATROPIUM/ALBUTEROL 3 ML AMPUL.NEB NEB SCH ×3 (09:08→20:44)
[2021-03-21] MEDS: TORSEMIDE 10 MG TABLET PO SCH (09:24)
[2021-03-21] MEDS: QUEtiapine 25 MG TABLET PO SCH ×2 (09:24→20:42)
[2021-03-21] MEDS: METOPROLOL SUCCINATE 50 MG TAB.XL.24H PO SCH (09:24)
[2021-03-21] MEDS: metFORMIN 500 MG TABLET PO SCH ×2 (09:25→16:28)
[2021-03-21] MEDS: FLUoxetine HCL 20 MG CAPSULE PO SCH (09:25)
[2021-03-21] MEDS: Umeclidinium-Vilanterol [Anoro Ellipta] 62.5-25 mcg Inhaler INH SCH (09:26)
[2021-03-21] MEDS: TRIAMCINOLONE CREAM 0.1% 15G 1 DOSE TUBE TOPICAL SCH ×3 (09:26→20:59)
[2021-03-21] MEDS: AMMONIUM LACTATE 12% TOPICAL SCH ×2 (09:27→20:45)
[2021-03-21] MEDS: ACETAMINOPHEN 500 MG TABLET PO SCH ×3 (09:30→20:43)
[2021-03-21] MEDS: DOCUSATE SODIUM 100 MG CAPSULE PO SCH ×3 (09:30→22:27)
[2021-03-21] MEDS: busPIRone 5 MG TABLET PO SCH ×2 (09:36→20:43)
[2021-03-21] MEDS: SIMETHICONE 80 MG TAB.CHEW CHEWED SCH ×2 (09:36→20:44)
[2021-03-21] MEDS: oxyCODONE HCL 5 MG TABLET PO PRN ×3 (09:45→21:10)
--- NOTE | 2021-03-21 13:56 | Internal Med Progress Note ---
SUBJECTIVE Subjective Patient information: Note initiated : 03/21/21 at 1:51 pm Service Date, if different from initiated Date: [] Patient: James Hyde 70 y/o M admitted on 03/15/21 for Hypoxia. Chief Complaint: [] Interval history: History of present illness: Mr. Hyde is a 70 year old M Patient was found at the nursing facility without his CPAP or oxygen on. His oxygen was 39% and he was altered. EMS was called placed on BiPAP. In the ED is found to have a pH 7.19 with a CO2 of greater than 124. Is continued on BiPAP and improved mentation follow-up ABG improving. Patient denies any current complaints coughing shortness of breath no current chest pain. He chronically wears 4 L of oxygen. *Discussion with about him and he has been a DNR/ comfort care at the facility and she was surprised that the patient was sent to the ED but it sounds like the patient called 911 himself. 03/16 Patient comfortable on BiPAP is been on nasal cannula occasionally and then placed back on. INR decreased some likely not enough for Thora, will discuss with radiology. 03/17 Patient on on nasal cannula. Feeling little better. INR normalized, attempted thoracentesis at bedside was not successful. No new pains or complaints. 03/18-feels about the same as yesterday, radiology thoracentesis drained 600 cc bloody fluid. Hemoglobin dropped 14.3->12.7 03/19-The patient feels ok, hemoglobin trend stable. Respiratory status stable. CT chest/abd/pelvis ordered. 03/20-CT chest shows moderate size hemothorax, discussed with surgery-recommended chest tube. Radiology unable to place chest tube with CT guidance due to body habitus. Discussed transfer with [facility] but no beds available. Discussed with [facility]-awaiting call back. [facility] also has not beds but placed patient on waiting list. [facility] later called back-denied transfer recommended a lateral transfer. 03/21-Call out to [facility] in [place]-left message. Still unable to find a bed for higher level of care. Patient stable today, reiterated that he would like to transfer further out, including to [place], if necessary. General: morbidly obese Head: Atraumatic, normal inspection. Eyes: normal appearance, no scleral icterus. Neck: full ROM Respiratory: no respiratory distress. Cardiovascular: normal rate, irregular rhythm, S1, S2. GI/Abdominal: obesity distended soft, nontender, no guarding. GI: donovan catheter Extremities: full range of motion, nontender, excoriations on buttock. Neurological: CN II-XII intact, intact sensation, weakness in all extremities. Psychiatric: normal mood. Skin: warm, normal color Constitutional Vitals: Vital Signs Temp Pulse Resp BP Pulse Ox 98.4 F 89 22 99/69 97 03/21/21 08:00 03/21/21 09:24 03/21/21 11:19 03/21/21 11:06 03/21/21 11:19 Period Temp Pulse Resp BP Sys/Aguayo Pulse Ox Last 24 Hr 98.2 F-98.6 F 87-95 11-25 83-120/49-83 94-100 Intake and Output 03/20/21 03/21/21 03/21/21 21:59 05:59 13:59 Intake Total 820 320 240 Output Total 1075 500 Balance -255 -180 240 Weight 179.4 kg Intake & Output: Intake & Output 03/20/21 03/21/21 03/21/21 21:59 05:59 13:59 Intake Total 820 320 240 Output Total 1075 500 Balance -255 -180 240 Weight 179.4 kg Intake: Oral 820 320 240 Output: Urine Catheter Amount 1075 500 Other: Meal Dinner Breakfast Percent of Meal Consumed 100% 100% Urine Appearance Clear Clear Urine Color Light Susan Light Susan Urine Odor Normal OBJ DATA Labs CBC & Chem 7: 03/21/21 05:08 03/21/21 05:08 Labs: Abnormal Lab Results 03/21/21 03/21/21 03/20/21 05:08 05:08 17:20 RBC 3.70 L Hgb 11.5 L 11.1 L Hct 39.3 L MCV 106.2 H MCHC 29.3 L MPV 10.5 H Lymph % (Auto) 14.4 L Lymph # (Auto) 1.12 L Reactive Lymphocytes Macrocytosis Stomatocytes PT Chloride 89 L Carbon Dioxide 46 H* Anion Gap 3.0 L Creatinine Glucose Pleural LDH 03/20/21 03/20/21 03/20/21 04:55 04:55 04:55 RBC 3.60 L Hgb 11.1 L Hct 37.8 L MCV 105.0 H MCHC 29.4 L MPV 10.5 H Lymph % (Auto) Lymph # (Auto) 1.16 L Reactive Lymphocytes Macrocytosis Stomatocytes PT 14.9 H Chloride 85 L Carbon Dioxide 45 H* Anion Gap 4.0 L Creatinine 0.6 L Glucose Pleural LDH 03/19/21 03/19/21 03/19/21 09:15 08:19 02:40 RBC 3.87 L Hgb 11.9 L 11.7 L Hct 40.0 L MCV 103.4 H MCHC 29.8 L MPV 10.5 H Lymph % (Auto) Lymph # (Auto) 1.13 L Reactive Lymphocytes Macrocytosis Stomatocytes PT Chloride 88 L Carbon Dioxide 43 H* Anion Gap 5.0 L Creatinine 0.6 L Glucose 130 H Pleural LDH 03/19/21 03/18/21 03/18/21 02:40 20:26 14:40 RBC Hgb 11.6 L Hct MCV MCHC MPV Lymph % (Auto) Lymph # (Auto) Reactive Lymphocytes Macrocytosis Stomatocytes PT 14.8 H Chloride Carbon Dioxide Anion Gap Creatinine Glucose Pleural LDH > 1146 H 03/18/21 13:32 RBC Hgb Hct MCV MCHC MPV Lymph % (Auto) Lymph # (Auto) Reactive Lymphocytes 4 H Macrocytosis 1+ A Stomatocytes 1+ A PT Chloride Carbon Dioxide Anion Gap Creatinine Glucose Pleural LDH Meds: Medications Acetaminophen (Acetaminophen 500 Mg Tablet) 1,000 mg PO TID [facility]; Protocol Last Admin: 03/21/21 09:30 Dose: 1,000 mg Documented by: Acetaminophen (Acetaminophen 325 Mg Tablet) 650 mg PO Q6HP PRN PRN Reason: PAIN/FEVER > 101 Albuterol Sulfate (Albuterol Sulfate 200 Puff Inhaler) 2 puff INH QIDP PRN PRN Reason: Wheezing Albuterol/Ipratropium (Ipratropium/Albuterol 3 Ml Ampul.Neb) 3 ml NEB TID [facility] Last Admin: 03/21/21 09:08 Dose: 3 ml Documented by: Albuterol/Ipratropium (Ipratropium/Albuterol 3 Ml Ampul.Neb) 3 ml NEB Q4HP PRN PRN Reason: Shortness Of Breath Buspirone HCl (Buspirone 5 Mg Tablet) 10 mg PO BID [facility] Last Admin: 03/21/21 09:36 Dose: 10 mg Documented by: Calcium Carbonate/Glycine (Calcium Carbonate 500 Mg Tab.Chew) 500 mg PO QDAY PRN PRN Reason: Indigestion Diphenhydramine HCl (Diphenhydramine 25 Mg Capsule) 25 mg PO Q6HP PRN PRN Reason: Allergic Symptoms Last Admin: 03/20/21 20:49 Dose: 25 mg Documented by: Docusate Sodium (Docusate Sodium 100 Mg Capsule) 100 mg PO BID [facility] Last Admin: 03/21/21 09:30 Dose: 100 mg Documented by: Fluoxetine HCl (Fluoxetine Hcl 20 Mg Capsule) 20 mg PO DAILY [facility] Last Admin: 03/21/21 09:25 Dose: 20 mg Documented by: Glucose Oxid/Lactoperoxid/Muramidas (Lactoperoxi/Gluc Oxid/Pot Thio 1 Each G el..Ea.) 1 each TOPICAL BID PRN PRN Reason: Dry Mouth Magnesium Sulfate (Magnesium Sulfate) 2 gm in 50 mls @ 50 mls/hr IV UD PRN PRN Reason: Magnesium </= 1.6 Potassium Chloride 40 meq/ (Dextrose) 520 mls @ 130 mls/hr IV UD PRN PRN Reason: Potassium < 3 Lactulose (Lactulose 20 Gm/30 Ml Oral.Ibeth) 20 gm PO DAILYP PRN PRN Reason: Constipation Loperamide HCl (Loperamide 2 Mg Capsule) 2 mg PO Q4HP PRN PRN Reason: Diarrhea Last Admin: 03/20/21 14:38 Dose: 2 mg Documented by: Lorazepam (Lorazepam 0.5 Mg Tablet) 0.5 mg PO Q6HP PRN PRN Reason: Agitation [facility] Last Admin: 03/21/21 09:25 Dose: 500 mg Documented by: Metoprolol Succinate (Metoprolol Succinate 50 Mg Tab.Xl.24h) 100 mg PO QDAY [facility] Last Admin: 03/21/21 09:24 Dose: 100 mg Documented by: Metoprolol Tartrate (Metoprolol Tartrate 5 Mg/5 Ml Vial) 5 mg IV Q2HP PRN PRN Reason: Tachyarrhythmias HR>110 Last Admin: 03/19/21 14:33 Dose: 5 mg Documented by: Morphine Sulfate (Morphine 2 Mg/Ml Vial) 1 - 4 mg IV Q3HP PRN; Protocol PRN Reason: Per Pain Protocol Morphine Sulfate (Morphine 20 Mg/Ml Oral.Conc) 5 mg PO Q6HP PRN PRN Reason: AIR HUNGER Nystatin (Nystatin Powder Bottle 15gm) 1 dose TOPICAL TIDP PRN PRN Reason: Skin Irritation Ondansetron HCl (Ondansetron 4 Mg/2 Ml Vial) 4 mg IV Q4HP PRN PRN Reason: Nausea And Vomiting Oxycodone HCl (Oxycodone Hcl 5 Mg Tablet) 5 mg PO Q4HP PRN; Protocol PRN Reason: Pain Last Admin: 03/21/21 09:45 Dose: 5 mg Documented by: Pantoprazole Sodium (Pantoprazole 40 Mg Tablet) 40 mg PO QAMAC [facility] Last Admin: 03/21/21 08:12 Dose: 40 mg Documented by: Umeclidinium- Vilanterol [Anoro Ellipta] 62.5-25 Mcg Inhaler 1 dose INH QDAY [facility] Last Admin: 03/21/21 09:26 Dose: 1 dose Documented by: Ammonium Lactate 12 (% Lotion) 1 dose TOPICAL BID [facility] Last Admin: 03/21/21 09:27 Dose: Not Given Documented by: Polyethylene Glycol (Polyethylene Glycol 3350 17 Gm Packet) 17 gm PO DAILYP PRN PRN Reason: Constipation Potassium Chloride (Potassium Chloride 20 Meq Tablet) 40 meq PO UD PRN PRN Reason: Potssium is 3-3.5 Potassium Chloride (Potassium Chloride 20 Meq Tablet) 40 meq PO UD PRN PRN Reason: Potassium < 3 Quetiapine Fumarate (Quetiapine 25 Mg Tablet) 12.5 mg PO BID [facility] Last Admin: 03/21/21 09:24 Dose: 12.5 mg Documented by: Senna (Sennosides 1 Tablet) 2 tab PO DAILYP PRN PRN Reason: Constipation Simethicone (Simethicone 80 Mg Tab.Chew) 160 mg CHEWED BID [facility] Last Admin: 03/21/21 09:36 Dose: 160 mg Documented by: Sodium Chloride (0.9 % Sodium Chloride 10 Ml Syringe) 10 ml IV Q8 [facility] Last Admin: 03/21/21 13:03 Dose: 10 ml Documented by: Torsemide (Torsemide 10 Mg Tablet) 20 mg PO QDAY [facility] Last Admin: 03/21/21 09:24 Dose: 20 mg Documented by: Triamcinolone Acetonide (Triamcinolone Cream 0.1% 15g 1 Dose Tube) 1 dose TOPICAL BID [facility] Stop: 03/23/21 20:59 Last Admin: 03/21/21 09:26 Dose: 1 dose Documented by: A/P Narrative A/P Narrative: Assessment: 70-year-old male with a history of atrial fibrillation, COPD, obstructive sleep apnea, probable obesity hypoventilation syndrome, obesityBMI 56, severe chronic generalized weakness, wheelchair-bound admitted for acute on chronic hypercapnic respiratory failure. Patient was found to have a large right pleural fusion s/p thoracentesis. *Moderate right hemothorax: s/p 600 ml bloody thoracentesis *Acute on chronic hypercapnic/hypoxic respiratory failure (4L O2 @home and CPAP): -improving -off/on bipap *Resolved encephalopathy: *Obesity hypoventilation syndrome *RAMAKRISHNA: not compliant with home/SNF CPAP but does ok with hospital NIV *Morbid obesity: BMI 56 *A. fib: was on warfarin prior to admission *Hx of congestive heart failure *COPD (on 4L @home): *Opiate dependence with chronic LBP: *Depression/anxiety: *Deconditioning/debility: Patient is wheelchair-bound and unable to transfer by self *Pressure wounds *Polypharmacy P: -Awaiting transfer to higher level of care for hemothorax-[facility]. -Following hemoglobin. -Continue Toprol, holding spironolactone. -CPAP at bedtime, prn BiPAP -wound care -continue home medications except coumadin and spironolactone -pt/ot -f/u pleural fluid cytology -dvt ppx: SCD, holding coumadin for now due to hemothorax -disposition: SNF vs home with home health -DNR Time Spent With Patient Time: Total time spent is greater than 50% in coordination of care (as documented) at patient's floor/unit and/or counseling patient: QUALITY Stroke Symptom Onset Unknown: No VTE Deep Vein Thrombosis/Pulmonary Embolism Present on Admission: No
--- NOTE | 2021-03-21 14:18 | XRay Report ---
INDICATION: follow up pleural effusion TECHNIQUE: AP portable semierect chest x-ray COMPARISON: Previous free and post thoracentesis chest x-rays dated 03/18/2021. FINDINGS:Patient had 600 mL right pleural fluid removed on 03/18/2021. Lungs:Left lung is incompletely imaged. Left lateral costophrenic angle is not included. Small left effusion is possible. There is right basilar parenchymal density. This is probably atelectasis due to pleural effusion. No detectable right basilar mass Heart, vascular:There is cardiomegaly. Pulmonary vascularity appears normal. Mediastinum, dionicio:No mediastinal widening. No hilar mass Pleura:There is a moderate right pleural effusion. This has increased slightly since postthoracentesis chest x-ray dated 03/18/2021 Skeletal:Negative. IMPRESSION: 1. Moderate right pleural effusion, slightly increased since postthoracentesis chest x-ray dated 03/18/2021 2. Right basilar pulmonary parenchymal density probably secondary to atelectasis 3. Cardiomegaly, unchanged Interpreted and Authenticated by: Orion Hamilton 03/21/21
[2021-03-21] MEDS: diphenhydrAMINE 25 MG CAPSULE PO PRN (21:10)
[2021-03-22] MEDS: oxyCODONE HCL 5 MG TABLET PO PRN ×4 (02:47→20:55)
[2021-03-22] MEDS: 0.9 % SODIUM CHLORIDE 10 ML SYRINGE IV SCH ×3 (05:57→20:57)
[2021-03-22] MEDS: PANTOPRAZOLE 40 MG TABLET PO SCH (07:22)
[2021-03-22 07:32] LABS: Basophils # (Auto) 0.02 K/mcL (0.00-0.20); Basophils % (Auto) 0.2 % (0.0-2.0); Eosinophils # (Auto) 0.31 K/mcL (0.00-0.70); Eosinophils % (Auto) 3.7 % (0.0-7.0); Hematocrit 41.8 % (41.0-55.0); Lymphocytes # (Auto) 1.28 K/mcL (1.50-4.80); Lymphocytes % (Auto) 15.4 % (15.0-49.0); Mean Cell Volume 107.5 fL (80.0-100.0); Mean Corpuscular HGB Conc 28.7 g/dL (31.0-36.0); Mean Platelet Volume 10.7 fL (7.4-10.4); Monocytes # (Auto) 0.78 K/mcL (0.10-0.90); Monocytes % (Auto) 9.4 % (1.0-12.0); Neutrophils % (Auto) 71.3 % (38.0-78.0); Platelet Count 219 K/mcL (140-440); RBC 3.89 M/mcL (4.50-5.90); Red Cell Distribution Width 13.7 % (11.5-14.5); WBC 8.3 K/mcL (4.5-11.0)
[2021-03-22] MEDS: IPRATROPIUM/ALBUTEROL 3 ML AMPUL.NEB NEB SCH ×3 (08:40→20:30)
[2021-03-22 08:44] LABS: Blood Urea Nitrogen 17 mg/dL (8-23); Carbon Dioxide 45 mmol/L (22-30); Chloride 87 mmol/L (96-108); Glomerular Filtration Rate 95; Glucose 100 mg/dL (70-105)
[2021-03-22] MEDS: AMMONIUM LACTATE 12% TOPICAL SCH ×2 (08:50→20:41)
[2021-03-22] MEDS: FLUoxetine HCL 20 MG CAPSULE PO SCH (08:57)
[2021-03-22] MEDS: metFORMIN 500 MG TABLET PO SCH ×2 (08:57→16:59)
[2021-03-22] MEDS: TORSEMIDE 10 MG TABLET PO SCH (08:57)
[2021-03-22] MEDS: METOPROLOL SUCCINATE 50 MG TAB.XL.24H PO SCH (08:57)
[2021-03-22] MEDS: ACETAMINOPHEN 500 MG TABLET PO SCH ×3 (08:57→20:55)
[2021-03-22] MEDS: DOCUSATE SODIUM 100 MG CAPSULE PO SCH ×2 (08:57→20:55)
--- NOTE | 2021-03-22 09:00 | Internal Med Progress Note ---
SUBJECTIVE Subjective Patient information: Note initiated : 03/22/21 at 8:49 am Service Date, if different from initiated Date: [] Patient: James Hyde 70 y/o M admitted on 03/15/21 for Hypoxia. Chief Complaint: [] Interval history: History of present illness: Mr. Hyde is a 70 year old M Patient was found at the nursing facility without his CPAP or oxygen on. His oxygen was 39% and he was altered. EMS was called placed on BiPAP. In the ED is found to have a pH 7.19 with a CO2 of greater than 124. Is continued on BiPAP and improved mentation follow-up ABG improving. Patient denies any current complaints coughing shortness of breath no current chest pain. He chronically wears 4 L of oxygen. *Discussion with about him and he has been a DNR/ comfort care at the facility and she was surprised that the patient was sent to the ED but it sounds like the patient called 911 himself. 03/16 Patient comfortable on BiPAP is been on nasal cannula occasionally and then placed back on. INR decreased some likely not enough for Thora, will discuss with radiology. 03/17 Patient on on nasal cannula. Feeling little better. INR normalized, attempted thoracentesis at bedside was not successful. No new pains or complaints. 03/18-feels about the same as yesterday, radiology thoracentesis drained 600 cc bloody fluid. Hemoglobin dropped 14.3->12.7 03/19-The patient feels ok, hemoglobin trend stable. Respiratory status stable. CT chest/abd/pelvis ordered. 03/20-CT chest shows moderate size hemothorax, discussed with surgery-recommended chest tube. Radiology unable to place chest tube with CT guidance due to body habitus. Discussed transfer with [facility] but no beds available. Discussed with [facility]-awaiting call back. [facility] also has not beds but placed patient on waiting list. [facility] later called back-denied transfer recommended a lateral transfer. 03/21-Call out to [facility] in [place]-left message. Still unable to find a bed for higher level of care. Patient stable today, reiterated that he would like to transfer further out, including to [place], if necessary. Discussed with [facility] in [place]-denied transfer patient. 03/22-Hemoglobin trending up, patient stable. Discussed multiple attempts to transfer to higher level of care. General: morbidly obese Head: Atraumatic, normal inspection. Eyes: normal appearance, no scleral icterus. Neck: full ROM Respiratory: no respiratory distress. Cardiovascular: normal rate, irregular rhythm, S1, S2. GI/Abdominal: obesity distended soft, nontender, no guarding. GI: donovan catheter Extremities: full range of motion, nontender, excoriations on buttock. Neurological: CN II-XII intact, intact sensation, weakness in all extremities. Psychiatric: normal mood. Skin: warm, normal color Constitutional Vitals: Vital Signs Temp Pulse Resp BP Pulse Ox 97.0 F 85 20 105/82 97 03/22/21 04:01 03/22/21 08:46 03/22/21 08:46 03/22/21 06:11 03/22/21 08:46 Period Temp Pulse Resp BP Sys/Aguayo Pulse Ox Last 24 Hr 97.0 F-98.1 F 75-89 13-31 90-136/59-95 91-98 Intake and Output 03/21/21 03/22/21 03/22/21 21:59 05:59 13:59 Intake Total 475 475 Output Total 875 250 Balance -875 225 475 Weight 181.981 kg Intake & Output: Intake & Output 03/21/21 03/22/21 03/22/21 21:59 05:59 13:59 Intake Total 475 475 Output Total 875 250 Balance -875 225 475 Weight 181.981 kg Intake: Oral 475 475 Output: Urine Catheter Amount 875 250 Other: Urine Appearance Clear Clear Urine Color Dark Yellow Bright Yellow OBJ DATA Labs CBC & Chem 7: 03/22/21 05:55 03/22/21 05:55 Labs: Abnormal Lab Results 03/22/21 03/22/21 03/21/21 05:55 05:55 05:08 RBC 3.89 L Hgb 12.0 L Hct MCV 107.5 H MCHC 28.7 L MPV 10.7 H Lymph % (Auto) Lymph # (Auto) 1.28 L PT Chloride 87 L 89 L Carbon Dioxide 45 H* 46 H* Anion Gap 5.0 L 3.0 L Creatinine Glucose 03/21/21 03/20/21 03/20/21 05:08 17:20 04:55 RBC 3.70 L Hgb 11.5 L 11.1 L Hct 39.3 L MCV 106.2 H MCHC 29.3 L MPV 10.5 H Lymph % (Auto) 14.4 L Lymph # (Auto) 1.12 L PT Chloride 85 L Carbon Dioxide 45 H* Anion Gap 4.0 L Creatinine 0.6 L Glucose 03/20/21 03/20/21 03/19/21 04:55 04:55 09:15 RBC 3.60 L Hgb 11.1 L Hct 37.8 L MCV 105.0 H MCHC 29.4 L MPV 10.5 H Lymph % (Auto) Lymph # (Auto) 1.16 L PT 14.9 H Chloride 88 L Carbon Dioxide 43 H* Anion Gap 5.0 L Creatinine 0.6 L Glucose 130 H 03/19/21 08:19 RBC 3.87 L Hgb 11.9 L Hct 40.0 L MCV 103.4 H MCHC 29.8 L MPV 10.5 H Lymph % (Auto) Lymph # (Auto) 1.13 L PT Chloride Carbon Dioxide Anion Gap Creatinine Glucose Meds: Medications Acetaminophen (Acetaminophen 500 Mg Tablet) 1,000 mg PO TID [facility]; Protocol Last Admin: 03/21/21 20:43 Dose: 1,000 mg Documented by: Acetaminophen (Acetaminophen 325 Mg Tablet) 650 mg PO Q6HP PRN PRN Reason: PAIN/FEVER > 101 Albuterol Sulfate (Albuterol Sulfate 200 Puff Inhaler) 2 puff INH QIDP PRN PRN Reason: Wheezing Albuterol/Ipratropium (Ipratropium/Albuterol 3 Ml Ampul.Neb) 3 ml NEB TID [facility] Last Admin: 03/22/21 08:40 Dose: 3 ml Documented by: Albuterol/Ipratropium (Ipratropium/Albuterol 3 Ml Ampul.Neb) 3 ml NEB Q4HP PRN PRN Reason: Shortness Of Breath Buspirone HCl (Buspirone 5 Mg Tablet) 10 mg PO BID [facility] Last Admin: 03/21/21 20:43 Dose: 10 mg Documented by: Calcium Carbonate/Glycine (Calcium Carbonate 500 Mg Tab.Chew) 500 mg PO QDAY PRN PRN Reason: Indigestion Diphenhydramine HCl (Diphenhydramine 25 Mg Capsule) 25 mg PO Q6HP PRN PRN Reason: Allergic Symptoms Last Admin: 03/21/21 21:10 Dose: 25 mg Documented by: Docusate Sodium (Docusate Sodium 100 Mg Capsule) 100 mg PO BID [facility] Last Admin: 03/21/21 22:27 Dose: Not Given Documented by: Fluoxetine HCl (Fluoxetine Hcl 20 Mg Capsule) 20 mg PO DAILY [facility] Last Admin: 03/21/21 09:25 Dose: 20 mg Documented by: Glucose Oxid/Lactoperoxid/Muramidas (Lactoperoxi/Gluc Oxid/Pot Thio 1 Each Gel..Ea.) 1 each TOPICAL BID PRN PRN Reason: Dry Mouth Magnesium Sulfate (Magnesium Sulfate) 2 gm in 50 mls @ 50 mls/hr IV UD PRN PRN Reason: Magnesium </= 1.6 Potassium Chloride 40 meq/ (Dextrose) 520 mls @ 130 mls/hr IV UD PRN PRN Reason: Potassium < 3 Lactulose (Lactulose 20 Gm/30 Ml Oral.Ibeth) 20 gm PO DAILYP PRN PRN Reason: Constipation Loperamide HCl (Loperamide 2 Mg Capsule) 2 mg PO Q4HP PRN PRN Reason: Diarrhea Last Admin: 03/20/21 14:38 Dose: 2 mg Documented by: Lorazepam (Lorazepam 0.5 Mg Tablet) 0.5 mg PO Q6HP PRN PRN Reason: Agitation Metformin [facility] ([facility] Mg [facility]t) [facility] Last Admin: 03/21/21 16:28 Dose: 500 mg Documented by: Metoprolol Succinate (Metoprolol Succinate 50 Mg Tab.Xl.24h) 100 mg PO QDAY [facility] Last Admin: 03/21/21 09:24 Dose: 100 mg Documented by: Metoprolol Tartrate (Metoprolol Tartrate 5 Mg/5 Ml Vial) 5 mg IV Q2HP PRN PRN Reason: Tachyarrhythmias HR>110 Last Admin: 03/19/21 14:33 Dose: 5 mg Documented by: Morphine Sulfate (Morphine 2 Mg/Ml Vial) 1 - 4 mg IV Q3HP PRN; Protocol PRN Reason: Per Pain Protocol Morphine Sulfate (Morphine 20 Mg/Ml Oral.Conc) 5 mg PO Q6HP PRN PRN Reason: AIR HUNGER Nystatin (Nystatin Powder Bottle 15gm) 1 dose TOPICAL TIDP PRN PRN Reason: Skin Irritation Ondansetron HCl (Ondansetron 4 Mg/2 Ml Vial) 4 mg IV Q4HP PRN PRN Reason: Nausea And Vomiting Oxycodone HCl (Oxycodone Hcl 5 Mg Tablet) 5 mg PO Q4HP PRN; Protocol PRN Reason: Pain Last Admin: 03/22/21 02:47 Dose: 5 mg Documented by: Pantoprazole Sodium (Pantoprazole 40 Mg Tablet) 40 mg PO QAMAC [facility] Last Admin: 03/22/21 07:22 Dose: 40 mg Documented by: Umeclidinium- Vilanterol [Anoro Ellipta] 62.5-25 Mcg Inhaler 1 dose INH QDAY [facility] Last Admin: 03/21/21 09:26 Dose: 1 dose Documented by: Ammonium Lactate 12 (% Lotion) 1 dose TOPICAL BID [facility] Last Admin: 03/21/21 20:45 Dose: Not Given Documented by: Polyethylene Glycol (Polyethylene Glycol 3350 17 Gm Packet) 17 gm PO DAILYP PRN PRN Reason: Constipation Potassium Chloride (Potassium Chloride 20 Meq Tablet) 40 meq PO UD PRN PRN Reason: Potssium is 3-3.5 Potassium Chloride (Potassium Chloride 20 Meq Tablet) 40 meq PO UD PRN PRN Reason: Potassium < 3 Quetiapine Fumarate (Quetiapine 25 Mg Tablet) 12.5 mg PO HS [facility] Last Admin: 03/21/21 20:42 Dose: 12.5 mg Documented by: Senna (Sennosides 1 Tablet) 2 tab PO DAILYP PRN PRN Reason: Constipation Simethicone (Simethicone 80 Mg Tab.Chew) 160 mg CHEWED BID [facility] Last Admin: 03/21/21 20:44 Dose: 160 mg Documented by: Sodium Chloride (0.9 % Sodium Chloride 10 Ml Syringe) 10 ml IV Q8 [facility] Last Admin: 03/22/21 05:57 Dose: 10 ml Documented by: Torsemide (Torsemide 10 Mg Tablet) 20 mg PO QDAY [facility] Last Admin: 03/21/21 09:24 Dose: 20 mg Documented by: Triamcinolone Acetonide (Triamcinolone Cream 0.1% 15g 1 Dose Tube) 1 dose TOPICAL BID [facility] Stop: 03/23/21 20:59 Last Admin: 03/21/21 20:59 Dose: Not Given Documented by: A/P Narrative A/P Narrative: Assessment: 70-year-old male with a history of atrial fibrillation, COPD, obstructive sleep apnea, probable obesity hypoventilation syndrome, obesityBMI 56, severe chronic generalized weakness, wheelchair-bound admitted for acute on chronic hypercapnic respiratory failure. Patient was found to have a large right pleural fusion s/p thoracentesis consistent with hemothorax. General surgery recommended a chest tube, radiology was unable to place a chest tube due to body habitus. Multiple attempts to transfer the patient to a higher level of care were not successful. *Moderate right hemothorax: s/p 600 ml bloody thoracentesis *Resolved acute on chronic hypercapnic/hypoxic respiratory failure *Resolved encephalopathy: *Obesity hypoventilation syndrome *RAMAKRISHNA: not compliant with home/SNF CPAP but does ok with hospital NIV *Morbid obesity: BMI 56 *A. fib: was on warfarin prior to admission *Hx of congestive heart failure *COPD (on 4L @home): *Opiate dependence with chronic LBP: *Depression/anxiety: *Deconditioning/debility: Patient is wheelchair-bound and unable to transfer by self *Pressure wounds *Polypharmacy P: -So far unable to transfer to a higher level of care for hemothorax, multiple attempts made -[facility]-no beds -[facility]-no beds -[facility]-left message, no returned call -[facility]-recommended lateral transfer -[facility]-unable to provider surgical expertise -[facility]-currently only taking [facility] patients -Following hemoglobin-improving -Continue Toprol, holding spironolactone for low BP. -CPAP at bedtime, prn BiPAP -wound care for decubitus pressure injury -continue home medications except coumadin and spironolactone -pt/ot -f/u pleural fluid cytology -dvt ppx: SCD, holding coumadin for now due to hemothorax -disposition: TBD -DNR Time Spent With Patient Time: Total time spent is greater than 50% in coordination of care (as documented) at patient's floor/unit and/or counseling patient: QUALITY Stroke Symptom Onset Unknown: No VTE Deep Vein Thrombosis/Pulmonary Embolism Present on Admission: No
[2021-03-22] MEDS: Umeclidinium-Vilanterol [Anoro Ellipta] 62.5-25 mcg Inhaler INH SCH (09:02)
[2021-03-22] MEDS: TRIAMCINOLONE CREAM 0.1% 15G 1 DOSE TUBE TOPICAL SCH ×2 (09:02→20:56)
[2021-03-22] MEDS: busPIRone 5 MG TABLET PO SCH ×2 (09:06→20:54)
[2021-03-22] MEDS: SIMETHICONE 80 MG TAB.CHEW CHEWED SCH ×2 (09:06→20:55)
--- NOTE | 2021-03-22 10:11 | Non-GYN Cytology Report ---
Non Patient Care Cytology NG Diagnosis PLEURAL FLUID, RIGHT, THORACENTESIS: --- BLOOD WITH ACUTE AND CHRONIC INFLAMMATION. --- NO ATYPICAL OR MALIGNANT CELLS IDENTIFIED. (DMT) NG Micro Description A ThinPrep monolayer slide, Leroy Giemsa stained cytospin slide, Diff Quik stained cytospin slide, Pap stained cytospin slide and a cell block slide are reviewed. Each contains numerous red blood cells with scattered lymphocytes, macrophages and neutrophils. No atypical or malignant cells are identified. NG Gross Description Received 500 mL red/brown thick fluid. Electronically Signed Hawk Wiley MD, FCAP Electronically Signed 03/22/2021 10:10
--- NOTE | 2021-03-22 13:09 | Internal Med Progress Note ---
SUBJECTIVE Subjective Patient information: Note initiated : 03/22/21 at 1:05 pm Service Date, if different from initiated Date: [] Patient: James Hyde 70 y/o M admitted on 03/15/21 for Hypoxia. Chief Complaint: [] Interval history: Interval history: History of present illness: Mr. Hyde is a 70 year old M Patient was found at the nursing facility without his CPAP or oxygen on. His oxygen was 39% and he was altered. EMS was called placed on BiPAP. In the ED is found to have a pH 7.19 with a CO2 of greater than 124. Is continued on BiPAP and improved mentation follow-up ABG improving. Patient denies any current complaints coughing shortness of breath no current chest pain. He chronically wears 4 L of oxygen. *Discussion with about him and he has been a DNR/ comfort care at the facility and she was surprised that the patient was sent to the ED but it sounds like the patient called 911 himself. 03/16 Patient comfortable on BiPAP is been on nasal cannula occasionally and then placed back on. INR decreased some likely not enough for Thora, will discuss with radiology. 03/17 Patient on on nasal cannula. Feeling little better. INR normalized, attempted thoracentesis at bedside was not successful. No new pains or complaints. 03/18-feels about the same as yesterday, radiology thoracentesis drained 600 cc bloody fluid. Hemoglobin dropped 14.3->12.7 03/19-The patient feels ok, hemoglobin trend stable. Respiratory status stable. CT chest/abd/pelvis ordered. 03/20-CT chest shows moderate size hemothorax, discussed with surgery-recommended chest tube. Radiology unable to place chest tube with CT guidance due to body habitus. Discussed transfer with [facility] but no beds available. Discussed with [facility]-awaiting call back. [facility] also has not beds but placed patient on waiting list. [place] later called back-denied transfer recommended a lateral transfer. 03/21-Call out to [facility] in [place]-left message. Still unable to find a bed for higher level of care. Patient stable today, reiterated that he would like to transfer further out, including to [place], if necessary. Discussed with [facility] in [place]-denied transfer patient. 5/25-Hemoglobin trending up, patient stable. Discussed multiple attempts to transfer to higher level of care. 03/23 Patient was on nasal cannula resting comfortable yesterday afternoon. This morning patient requiring BiPAP and desats quickly without it. We will obtain repeat CT chest. Review of Systems: denies headache/fever/chills/nausea/vomiting/chest or abdominal pain/diarrhea. Otherwise see above. Constitutional Vitals: Vital Signs Temp Pulse Resp BP Pulse Ox 97.9 F 85 21 107/71 98 03/22/21 12:27 03/22/21 08:46 03/22/21 12:28 03/22/21 12:27 03/22/21 12:28 Period Temp Pulse Resp BP Sys/Aguayo Pulse Ox Last 24 Hr 97.0 F-98.1 F 75-85 13-31 90-136/60-95 91-98 Intake and Output 03/21/21 03/22/21 03/22/21 21:59 05:59 13:59 Intake Total 475 775 Output Total 875 250 Balance -875 225 775 Weight 181.981 kg Intake & Output: Intake & Output 03/21/21 03/22/21 03/22/21 21:59 05:59 13:59 Intake Total 475 775 Output Total 875 250 Balance -875 225 775 Weight 181.981 kg Intake: Oral 475 775 Output: Urine Catheter Amount 875 250 Other: Meal Breakfast Percent of Meal Consumed 100% Urine Appearance Clear Clear Clear Urine Color Dark Yellow Bright Yellow Bright Yellow Urine Odor Normal Uretheral (Galan) Normal Exam: General: Alert, Awake, No acute Distress, morbid obesity Eyes/N/T: EOMI, , Head/Neck: neck supple, CV: RRR, No murmurs, Pulm: Diminished b/l, no wheezing Abd: soft, nontender, +BS x4, rotund Ext: no clubbing/cyanosis mild b/l LE edema, venous stasis changes bilateral lower extremities Neuro: Alert, no focal deficits, moves all extremities, Skin: warm/dry OBJ DATA Labs CBC & Chem 7: 03/23/21 05:44 03/22/21 05:55 Labs: Abnormal Lab Results 03/22/21 03/22/21 03/21/21 05:55 05:55 05:08 RBC 3.89 L Hgb 12.0 L Hct MCV 107.5 H MCHC 28.7 L MPV 10.7 H Lymph % (Auto) Lymph # (Auto) 1.28 L PT Chloride 87 L 89 L Carbon Dioxide 45 H* 46 H* Anion Gap 5.0 L 3.0 L Creatinine 03/21/21 03/20/21 03/20/21 05:08 17:20 04:55 RBC 3.70 L Hgb 11.5 L 11.1 L Hct 39.3 L MCV 106.2 H MCHC 29.3 L MPV 10.5 H Lymph % (Auto) 14.4 L Lymph # (Auto) 1.12 L PT Chloride 85 L Carbon Dioxide 45 H* Anion Gap 4.0 L Creatinine 0.6 L 03/20/21 03/20/21 04:55 04:55 RBC 3.60 L Hgb 11.1 L Hct 37.8 L MCV 105.0 H MCHC 29.4 L MPV 10.5 H Lymph % (Auto) Lymph # (Auto) 1.16 L PT 14.9 H Chloride Carbon Dioxide Anion Gap Creatinine Meds: Medications Acetaminophen (Acetaminophen 500 Mg Tablet) 1,000 mg PO TID [facility]; Protocol Last Admin: 03/22/21 08:57 Dose: 1,000 mg Documented by: Acetaminophen (Acetaminophen 325 Mg Tablet) 650 mg PO Q6HP PRN PRN Reason: PAIN/FEVER > 101 Albuterol Sulfate (Albuterol Sulfate 200 Puff Inhaler) 2 puff INH QIDP PRN PRN Reason: Wheezing Albuterol/Ipratropium (Ipratropium/Albuterol 3 Ml Ampul.Neb) 3 ml NEB TID [facility] Last Admin: 03/22/21 08:40 Dose: 3 ml Documented by: Albuterol/Ipratropium (Ipratropium/Albuterol 3 Ml Ampul.Neb) 3 ml NEB Q4HP PRN PRN Reason: Shortness Of Breath Buspirone HCl (Buspirone 5 Mg Tablet) 10 mg PO BID [facility] Last Admin: 03/22/21 09:06 Dose: 10 mg Documented by: Calcium Carbonate/Glycine (Calcium Carbonate 500 Mg Tab.Chew) 500 mg PO QDAY PRN PRN Reason: Indigestion Diphenhydramine HCl (Diphenhydramine 25 Mg Capsule) 25 mg PO Q6HP PRN PRN Reason: Allergic Symptoms Last Admin: 03/21/21 21:10 Dose: 25 mg Documented by: Docusate Sodium (Docusate Sodium 100 Mg Capsule) 100 mg PO BID [facility] Last Admin: 03/22/21 08:57 Dose: 100 mg Documented by: Fluoxetine HCl (Fluoxetine Hcl 20 Mg Capsule) 20 mg PO DAILY [facility] Last Admin: 03/22/21 08:57 Dose: 20 mg Documented by: Glucose Oxid/Lactoperoxid/Muramidas (Lactoperoxi/Gluc Oxid/Pot Thio 1 Each Gel..Ea.) 1 each TOPICAL BID PRN PRN Reason: Dry Mouth Magnesium Sulfate (Magnesium Sulfate) 2 gm in 50 mls @ 50 mls/hr IV UD PRN PRN Reason: Magnesium </= 1.6 Potassium Chloride 40 meq/ (Dextrose) 520 mls @ 130 mls/hr IV UD PRN PRN Reason: Potassium < 3 Lactulose (Lactulose 20 Gm/30 Ml Oral.Ibeth) 20 gm PO DAILYP PRN PRN Reason: Constipation Loperamide HCl (Loperamide 2 Mg Capsule) 2 mg PO Q4HP PRN PRN Reason: Diarrhea Last Admin: 03/20/21 14:38 Dose: 2 mg Documented by: Lorazepam (Lorazepam 0.5 Mg Tablet) 0.5 mg PO Q6HP PRN PRN Reason: Agitation Met[facility] ([facility] 500 Mg [facility]t) [facility] Last Admin: 03/22/21 08:57 Dose: 500 mg Documented by: Metoprolol Succinate (Metoprolol Succinate 50 Mg Tab.Xl.24h) 100 mg PO QDAY [facility] Last Admin: 03/22/21 08:57 Dose: 100 mg Documented by: Metoprolol Tartrate (Metoprolol Tartrate 5 Mg/5 Ml Vial) 5 mg IV Q2HP PRN PRN Reason: Tachyarrhythmias HR>110 Last Admin: 03/19/21 14:33 Dose: 5 mg Documented by: Morphine Sulfate (Morphine 2 Mg/Ml Vial) 1 - 4 mg IV Q3HP PRN; Protocol PRN Reason: Per Pain Protocol Morphine Sulfate (Morphine 20 Mg/Ml Oral.Conc) 5 mg PO Q6HP PRN PRN Reason: AIR HUNGER Nystatin (Nystatin Powder Bottle 15gm) 1 dose TOPICAL TIDP PRN PRN Reason: Skin Irritation Ondansetron HCl (Ondansetron 4 Mg/2 Ml Vial) 4 mg IV Q4HP PRN PRN Reason: Nausea And Vomiting Oxycodone HCl (Oxycodone Hcl 5 Mg Tablet) 5 mg PO Q4HP PRN; Protocol PRN Reason: Pain Last Admin: 03/22/21 08:57 Dose: 5 mg Documented by: Pantoprazole Sodium (Pantoprazole 40 Mg Tablet) 40 mg PO QAMAC [facility] Last Admin: 03/22/21 07:22 Dose: 40 mg Documented by: Umeclidinium- Vilanterol [Anoro Ellipta] 62.5-25 Mcg Inhaler 1 dose INH QDAY [facility] Last Admin: 03/22/21 09:02 Dose: 1 dose Documented by: Ammonium Lactate 12 (% Lotion) 1 dose TOPICAL BID [facility] Last Admin: 03/22/21 08:50 Dose: Not Given Documented by: Polyethylene Glycol (Polyethylene Glycol 3350 17 Gm Packet) 17 gm PO DAILYP PRN PRN Reason: Constipation Potassium Chloride (Potassium Chloride 20 Meq Tablet) 40 meq PO UD PRN PRN Reason: Potssium is 3-3.5 Potassium Chloride (Potassium Chloride 20 Meq Tablet) 40 meq PO UD PRN PRN Reason: Potassium < 3 Quetiapine Fumarate (Quetiapine 25 Mg Tablet) 12.5 mg PO HS [facility] Last Admin: 03/21/21 20:42 Dose: 12.5 mg Documented by: Senna (Sennosides 1 Tablet) 2 tab PO DAILYP PRN PRN Reason: Constipation Simethicone (Simethicone 80 Mg Tab.Chew) 160 mg CHEWED BID [facility] Last Admin: 03/22/21 09:06 Dose: 160 mg Documented by: Sodium Chloride (0.9 % Sodium Chloride 10 Ml Syringe) 10 ml IV Q8 [facility] Last Admin: 03/22/21 13:03 Dose: 10 ml Documented by: Torsemide (Torsemide 10 Mg Tablet) 20 mg PO QDAY [facility] Last Admin: 03/22/21 08:57 Dose: 20 mg Documented by: Triamcinolone Acetonide (Triamcinolone Cream 0.1% 15g 1 Dose Tube) 1 dose TOPICAL BID [facility] Stop: 03/23/21 20:59 Last Admin: 03/22/21 09:02 Dose: 1 dose Documented by: A/P Narrative A/P Narrative: A: *Moderate right hemothorax: s/p 600 ml bloody thoracentesis (03/18) *Acute on chronic hypercapnic/hypoxic respiratory failure (4L O2 @home and CPAP): 2/2 above -resolved, but requiring bipap this morning *Encephalopathy: 2/2 above -resolved *RAMAKRISHNA/obesity hypoventilation syndrome: On cpap *Morbid obesity *A. fib: On warfarin prior to admit *h/o diastolic CHF: -RV mod-sev dilated, right atrium dilated, mod Pulm HTN *COPD (on 4L @home): *Opiate dependence with chronic LBP: *Depression/anxiety: *Deconditioning/debility: Patient is wheelchair-bound and unable to transfer by self *pressure ulcers *Polypharmcy: P: -repeat CT chest -So far unable to transfer to a higher level of care for hemothorax, multiple attempts made -[facility]-no beds -[facility]-no beds -[facility]-left message, no returned call -[facility]-recommended lateral transfer -[facility]-unable to provider surgical expertise -[facility]-currently only taking [facility] patients -Following hemoglobin-improving -Continue Toprol, holding spironolactone for low BP -CPAP at bedtime, prn BiPAP -wound care for decubitus pressure injury -continue home medications except coumadin and spironolactone -pt/ot -CM for placement -ppx: SCD, no chemical d/t hemothorax DNR Time Spent With Patient Time: Total time spent is greater than 50% in coordination of care (as documented) at patient's floor/unit and/or counseling patient: QUALITY Stroke Symptom Onset Unknown: No VTE Deep Vein Thrombosis/Pulmonary Embolism Present on Admission: No
--- NOTE | 2021-03-22 14:49 | Discharge Summary ---
Discharge Provider Provider Patient information: Note initiated : 03/22/21 at 2:45 pm Service Date, if different from initiated Date: [] Patient: James Hyde 70 y/o M admitted on 03/15/21 for Hypoxia. Chief Complaint: [] Date of admission: 03/15/21 08:33 Discharge date: 03/26/21 Primary care physician: Physician Not On Staff Consults: 03/15/21 Consult to Physician [CONS] Stat Comment: Consulting Provider: Dave Mcgowan Reason For Exam: Physician to Consult Discharge Meds Discharge Medications Home Medications Anoro Ellipta 1 inh INHALATION QDAY 03/15/21 [History Confirmed 03/16/21 Last Taken 03/14/21] calcium carbonate [Antacid (calcium carbonate)] 500 mg PO PRN PRN 03/15/21 [History Confirmed 03/16/21 Last Taken 03/12/21 07:52] fluoxetine 20 mg PO QDAY 03/15/21 [History Confirmed 03/16/21 Last Taken 03/14/21] omeprazole 20 mg PO DAILY 03/15/21 [History Confirmed 03/16/21 Last Taken 03/14/21] simethicone 160 mg PO BID 03/15/21 [History Confirmed 03/16/21 Last Taken 03/14/21] Biotene PBF 30 ml MUCOUS MEMBRANE BID 03/16/21 [History Confirmed 03/16/21 Last Taken 03/14/21] acetaminophen 1,000 mg PO TID 03/16/21 [History Confirmed 03/16/21 Last Taken 03/14/21 20:00] albuterol sulfate [Proventil HFA] 2 puff INHALATION QID PRN 03/16/21 [History Confirmed 03/16/21 Last Taken Unknown] ammonium lactate 1 applic TOPICAL BID 03/16/21 [History Confirmed 03/16/21 Last Taken 03/14/21 15:00] buspirone 10 mg PO BID 03/16/21 [History Confirmed 03/16/21 Last Taken 03/14/21] fluticasone propionate 1 spray INTRANASAL QDAY 03/16/21 [History Confirmed 03/16/21 Last Taken 03/14/21] ipratropium-albuterol 3 ml INHALATION TID 03/16/21 [History Confirmed 03/16/21 Last Taken 03/14/21 20:00] lorazepam 0.5 mg PO Q6HP PRN 03/16/21 [History Confirmed 03/16/21 Last Taken 03/07/21 11:21] metformin 500 mg PO BID 03/16/21 [History Confirmed 03/16/21 Last Taken 03/14/21] morphine concentrate 5 mg SUBLINGUAL Q6H PRN 03/16/21 [History Confirmed 03/16/21 Last Taken 03/07/21 12:00] oxycodone 5 mg PO Q4H PRN 03/16/21 [History Confirmed 03/16/21 Last Taken 03/14/21 21:13] quetiapine 12.5 mg PO BID 03/16/21 [History Confirmed 03/16/21 Last Taken 03/14/21] torsemide 20 mg PO QDAY 03/16/21 [History Confirmed 03/16/21 Last Taken 03/14/21] metoprolol succinate 25 mg PO QDAY #1 tab 03/26/21 [Rx Last Taken Unknown] COURSE Hospital Course Hospital course: Interval history: Interval history: History of present illness: Mr. Hyde is a 70 year old M Patient was found at the nursing facility without his CPAP or oxygen on. His oxygen was 39% and he was altered. EMS was called placed on BiPAP. In the ED is found to have a pH 7.19 with a CO2 of greater than 124. Is continued on BiPAP and improved mentation follow-up ABG improving. Patient denies any current complaints coughing shortness of breath no current chest pain. He chronically wears 4 L of oxygen. *Discussion with about him and he has been a DNR/ comfort care at the facility and she was surprised that the patient was sent to the ED but it sounds like the patient called 911 himself. 03/16 Patient comfortable on BiPAP is been on nasal cannula occasionally and then placed back on. INR decreased some likely not enough for Thora, will discuss with radiology. 03/17 Patient on on nasal cannula. Feeling little better. INR normalized, attempted thoracentesis at bedside was not successful. No new pains or complaints. 03/18-feels about the same as yesterday, radiology thoracentesis drained 600 cc bloody fluid. Hemoglobin dropped 14.3->12.7 03/19-The patient feels ok, hemoglobin trend stable. Respiratory status stable. CT chest/abd/pelvis ordered. 03/20-CT chest shows moderate size hemothorax, discussed with surgery-recommended chest tube. Radiology unable to place chest tube with CT guidance due to body habitus. Discussed transfer with [facility] but no beds available. Discussed with [facility]-awaiting call back. [facility] also has not beds but placed patient on waiting list. [facility] later called back-denied transfer recommended a lateral transfer. 03/21-Call out to [facility] in [place]-left message. Still unable to find a bed for higher level of care. Patient stable today, reiterated that he would like to transfer further out, including to [place], if necessary. Discussed with [facility] in [place]-denied transfer patient. 03/22-Hemoglobin trending up, patient stable. Discussed multiple attempts to transfer to higher level of care. *Did re-discuss with general surgeon; plan is if continues to be stable will d/c back to SNF but will not restart warfarin. 03/23 Patient was on nasal cannula resting comfortable yesterday afternoon. This morning patient requiring BiPAP and desats quickly without it. We will obtain repeat CT chest. *I talked with a physician who is in charge of helping to place patients in the state when the local hospitals have a hard time. I ran the case by him and what was needed. He was concerned about patient's status and that he would likely not do well regardless and was worried about him coming over to the other side of the state and dying without family present. He asked me to have a goals of care discussion with the patient to see if he really wanted to be that aggressive guarantee for a good outcome is not there. I talked with the patient and he agreed saying he did not want to go over to [place] if it likely is not can be a good outcome. He agreed to hospice was an appropriate choice, which is what he was on before he was admitted. Also talked to the who agreed with hospice comfort care as this was the understanding before he was admitted anyway. Patient will likely go back to facility with hospice care. He did agree to 1 more attempt of thoracentesis to see if that would make any difference. 03/24 Patient felt he was breathing better after the thoracentesis yesterday. He is on nasal cannula currently. Awaiting placement. 5/28 No overnight event or new complaints. On nasal cannula during the day not requiring BiPAP during the day. Still awaiting placement. *Lowered home metoprolol due to low blood pressure A: *Moderate right hemothorax: s/p 600 ml bloody thoracentesis *Acute on chronic hypercapnic/hypoxic respiratory failure (4L O2 @home and CPAP): 2/2 above -resolved *Encephalopathy: 2/2 above -resovled *RAMAKRISHNA/obesity hypoventilation syndrome: On cpap *Morbid obesity *A. fib: On warfarin prior to admit *?h/o CHF *COPD (on 4L @home): *Opiate dependence with chronic LBP: *Depression/anxiety: *Deconditioning/debility: Patient is wheelchair-bound and unable to transfer by self *pressure ulcers *Polypharmcy: A: *Moderate right hemothorax: s/p 600 ml bloody thoracentesis (03/18) & thora (03/23) of 1400cc bloody *Acute on chronic hypercapnic/hypoxic respiratory failure (4L O2 @home and CPAP): 2/2 above -resolved, on NC this morning *Encephalopathy: 2/2 above -resolved *RAMAKRISHNA/obesity hypoventilation syndrome: On cpap *Morbid obesity *A. fib: On warfarin prior to admit *h/o diastolic CHF: -RV mod-sev dilated, right atrium dilated, mod Pulm HTN *COPD (on 4L @home): *Opiate dependence with chronic LBP: *Depression/anxiety: *Deconditioning/debility: Patient is wheelchair-bound and unable to transfer by self *pressure ulcers *Polypharmcy: P: -f/u with Hospice -Continue Toprol (decrease), -nocturnal BiPAP and prn daytime -continue home medications except coumadin and spironolactone -pt/ot Discharge diagnosis: Right hemothorax chronic acute on chronic hypercapnic hy poxic respite failu Secondary discharge diagnosis: Obstructive sleep apnea obesity hypoventilation syndrome morbid obesity A. fib COPD opiate dependence depression anxiety deconditioning debility pressure ulcer polypharmacy Time Spent with Patient Time attestation: Total time spent providing and/or coordinating discharge services: Time spent: Greater than 30 minutes EXAM Constitutional Vitals: Temp Pulse Resp BP Pulse Ox 97.9 F 85 25 H 109/71 96 03/22/21 12:27 03/22/21 08:46 03/22/21 14:33 03/22/21 14:00 03/22/21 14:33 Discharge Data Data Completed and Pending Labs on day of discharge: Labs from last 24 hours 03/22/21 03/22/21 05:55 05:55 WBC 8.3 RBC 3.89 L Hgb 12.0 L Hct 41.8 MCV 107.5 H MCH 30.8 MCHC 28.7 L RDW 13.7 Plt Count 219 MPV 10.7 H Neut % (Auto) 71.3 Lymph % (Auto) 15.4 [place] % (Auto) 9.4 Eos % (Auto) 3.7 Baso % (Auto) 0.2 Lymph # (Auto) 1.28 L [place] # (Auto) 0.78 Eos # (Auto) 0.31 Baso # (Auto) 0.02 Absolute Neutrophils 5.93 Sodium 137 Potassium 4.1 Chloride 87 L Carbon Dioxide 45 H* Anion Gap 5.0 L BUN 17 Creatinine 0.7 GFR Calculation 95 Glucose 100 Calcium 9.0 Discharge Plan Patient/Caregiver Discharge Instructions Activity: increase activity as tolerated Diet: Regular Diet Prescriptions: Continued fluoxetine 20 mg Tablet 20 mg PO QDAY RF: 0 calcium carbonate [Antacid (calcium carbonate)] 200 mg calcium (500 mg) Tablet,Chewable 500 mg PO PRN PRN (Reason: Indigestion) RF: 0 Anoro Ellipta 62.5-25 mcg/actuation Blister With Device 1 inh INHALATION QDAY RF: 0 omeprazole 20 mg Capsule,Delayed Release(Dr/Ec) 20 mg PO DAILY RF: 0 simethicone 80 mg Tablet 160 mg PO BID RF: 0 fluticasone propionate 50 mcg/actuation [place],Suspension 1 spray INTRANASAL QDAY RF: 0 torsemide 20 mg Tablet 20 mg PO QDAY RF: 0 Biotene PBF Mouthwash 30 ml MUCOUS MEMBRANE BID RF: 0 metformin 500 mg Tablet 500 mg PO BID RF: 0 buspirone 10 mg Tablet 10 mg PO BID RF: 0 quetiapine 25 mg Tablet 12.5 mg PO BID RF: 0 acetaminophen 500 mg Tablet 1,000 mg PO TID RF: 0 ipratropium-albuterol 0.5 mg-3 mg(2.5 mg base)/3 mL Solution For Nebulization 3 ml INHALATION TID RF: 0 morphine concentrate 20 mg/mL Syringe 5 mg SUBLINGUAL Q6H PRN (Reason: other) RF: 0 lorazepam 0.5 mg Tablet 0.5 mg PO Q6HP PRN (Reason: Agitation) RF: 0 albuterol sulfate [Proventil HFA] 90 mcg/actuation Hfa Aerosol Inhaler 2 puff INHALATION QID PRN (Reason: Wheezing) RF: 0 oxycodone 5 mg Tablet 5 mg PO Q4H PRN (Reason: Pain) RF: 0 ammonium lactate 12 % Lotion 1 applic TOPICAL BID RF: 0 Changed metoprolol succinate 50 mg Tablet Extended Release 24 Hr 25 mg PO QDAY Qty: 1 RF: 0 Discontinued warfarin 2 mg Tablet 2 mg PO SA RF: 0 warfarin 3 mg Tablet See Rx Instructions .ROUTE .COMPLEX RF: 0 spironolactone 25 mg Tablet 25 mg PO BID RF: 0 Follow Up Plan Follow up with: Not On Staff,Physician [Primary Care Provider] - Patient Disposition: Xfer SNF Prognosis: Undetermined Rehab Potential: Undetermined I certify that the patient requires SNF services: Yes Overall status at discharge: patient is progressing back to baseline Discharge Orders: Discharge Order (Routine); Ordered 03/26/21 [facility]in Thromb[facility]/Pulmonary Embolism Present on Admission: No
[2021-03-22] MEDS: QUEtiapine 25 MG TABLET PO SCH (20:56)
[2021-03-23] MEDS: 0.9 % SODIUM CHLORIDE 10 ML SYRINGE IV SCH ×3 (04:58→21:29)
[2021-03-23 07:15] LABS: Hematocrit 38.8 % (41.0-55.0); Hemoglobin 11.4 g/dL (13.5-16.5)
[2021-03-23] MEDS: metFORMIN 500 MG TABLET PO SCH ×2 (07:44→17:27)
[2021-03-23] MEDS: PANTOPRAZOLE 40 MG TABLET PO SCH (07:44)
[2021-03-23] MEDS: IPRATROPIUM/ALBUTEROL 3 ML AMPUL.NEB NEB SCH ×3 (07:50→21:30)
[2021-03-23] MEDS: oxyCODONE HCL 5 MG TABLET PO PRN (07:50)
[2021-03-23] MEDS: DOCUSATE SODIUM 100 MG CAPSULE PO SCH ×2 (08:39→21:29)
[2021-03-23] MEDS: TORSEMIDE 10 MG TABLET PO SCH (08:39)
[2021-03-23] MEDS: busPIRone 5 MG TABLET PO SCH ×2 (08:39→21:28)
[2021-03-23] MEDS: TRIAMCINOLONE CREAM 0.1% 15G 1 DOSE TUBE TOPICAL SCH (08:40)
[2021-03-23] MEDS: FLUoxetine HCL 20 MG CAPSULE PO SCH (08:40)
[2021-03-23] MEDS: METOPROLOL SUCCINATE 50 MG TAB.XL.24H PO SCH (08:40)
[2021-03-23] MEDS: SIMETHICONE 80 MG TAB.CHEW CHEWED SCH ×2 (08:40→21:28)
[2021-03-23] MEDS: AMMONIUM LACTATE 12% TOPICAL SCH ×2 (08:40→21:29)
[2021-03-23] MEDS: Umeclidinium-Vilanterol [Anoro Ellipta] 62.5-25 mcg Inhaler INH SCH (08:40)
[2021-03-23] MEDS: ACETAMINOPHEN 500 MG TABLET PO SCH ×3 (08:41→21:29)
[2021-03-23] MEDS: NYSTATIN POWDER BOTTLE 15GM TOPICAL PRN (08:42)
--- NOTE | 2021-03-23 10:59 | Cat Scan Report ---
INDICATION: f/u hemothorax COMPARISON: Previous chest CT scan dated 03/20/2021 TECHNIQUE: Axial noncontrast enhanced images through the chest. Sagittally and coronally reformatted images. MIP reformatted images. FINDINGS: Patient underwent ultrasound-guided thoracentesis on 03/18/2021. 600 mL of bloody fluid was removed. Lungs:There is compressive atelectasis of the right lower lobe and mild compressive atelectasis of the left lower lobe. Findings are secondary to overlying pleural fluid. Aerated portions of the lungs are negative. No new abnormality. Mediastinum, vascular:No pathologic mediastinal or hilar adenopathy Thoracic aorta is negative. No aneurysmal dilatation. As described there is a subtle retroesophageal artery arising from the thoracic aorta. This may contribute to the right vertebral artery. This is a normal variant but could be significant as described previously. Heart:There is generalized cardiomegaly. There is extensive coronary artery calcification. There is no pericardial effusion or hemopericardium. Pleura:Bilateral pleural effusions. Pleural effusion on the right is considered moderate. Left pleural effusion is small. Pleural effusions are unchanged. DRE values measure approximately 15 bilaterally. Axilla, supraclavicular regions, chest wall:No axillary or supraclavicular adenopathy. Musculoskeletal:No thoracic compression fractures. No lytic lesions. No sternal or rib lesions Upper Abdomen:Negative to the limits of noncontrast enhanced examination IMPRESSION: 1. Moderate right pleural effusion and small left pleural effusion. Appearance is essentially unchanged since 03/20/2021 2. Bilateral compressive atelectasis, right lower lobe worse than left 3. Cardiomegaly. Severe coronary artery calcification. 4. 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 This is unchanged 5. CT scan is essentially stable since 03/20/2021 The exam was performed using radiation dose optimization techniques including, but not limited to, automated exposure control, adjustment of the mA and/or kV according to patient size and use of iterative reconstruction technique. Interpreted and Authenticated by: Orion Hamilton 03/23/21
--- NOTE | 2021-03-23 15:00 | XRay Report ---
INDICATION: Post thoracentesis TECHNIQUE: AP semierect chest x-ray COMPARISON: Previous thoracentesis chest x-ray dated 03/21/2021 FINDINGS:Significant interval decrease in size of right pleural effusion. Changes status post removal of 1400 mL of bloody pleural fluid No significant pneumothorax. IMPRESSION: 1. Status post ultrasound-guided right thoracentesis. 1400 mL of bloody fluid removed 2. Markedly decreased right pleural effusion 3. No significant pneumothorax Interpreted and Authenticated by: Orion Hamilton 03/23/21
--- NOTE | 2021-03-23 15:02 | Ultrasound Report ---
INDICATION: hemothorax TECHNIQUE: Informed consent was obtained. Right pleural effusion was localized with ultrasound. Routine ChloraPrep skin cleansing. 1% lidocaine injected subcutaneously and deep. A 6 Gabonese safety centesis set was utilized. 1400 mL of bloody right pleural fluid was removed. Post procedure chest x-ray demonstrates no significant pneumothorax IMPRESSION: 1. Ultrasound-guided right thoracentesis 2. 1400 mL of bloody right pleural fluid removed. No immediate complication Interpreted and Authenticated by: Orion Hamilton 03/23/21
[2021-03-23] MEDS: QUEtiapine 25 MG TABLET PO SCH (21:29)
[2021-03-23] MEDS: morphine 2 MG/ML VIAL IV PRN (22:24)
[2021-03-24] MEDS: 0.9 % SODIUM CHLORIDE 10 ML SYRINGE IV SCH ×3 (05:24→22:00)
[2021-03-24] MEDS: IPRATROPIUM/ALBUTEROL 3 ML AMPUL.NEB NEB SCH ×3 (08:15→20:29)
[2021-03-24] MEDS: ACETAMINOPHEN 500 MG TABLET PO SCH ×3 (08:18→20:49)
[2021-03-24] MEDS: metFORMIN 500 MG TABLET PO SCH ×2 (08:19→17:37)
[2021-03-24] MEDS: SIMETHICONE 80 MG TAB.CHEW CHEWED SCH ×2 (08:19→20:49)
[2021-03-24] MEDS: TORSEMIDE 10 MG TABLET PO SCH (08:19)
[2021-03-24] MEDS: FLUoxetine HCL 20 MG CAPSULE PO SCH (08:19)
[2021-03-24] MEDS: PANTOPRAZOLE 40 MG TABLET PO SCH (08:19)
[2021-03-24] MEDS: diphenhydrAMINE 25 MG CAPSULE PO PRN (08:19)
[2021-03-24] MEDS: busPIRone 5 MG TABLET PO SCH ×2 (08:20→20:50)
[2021-03-24] MEDS: oxyCODONE HCL 5 MG TABLET PO PRN ×3 (08:20→23:46)
[2021-03-24] MEDS: DOCUSATE SODIUM 100 MG CAPSULE PO SCH ×2 (08:20→20:53)
[2021-03-24] MEDS: METOPROLOL SUCCINATE 50 MG TAB.XL.24H PO SCH (08:20)
[2021-03-24] MEDS: NYSTATIN POWDER BOTTLE 15GM TOPICAL PRN (08:21)
[2021-03-24] MEDS: Umeclidinium-Vilanterol [Anoro Ellipta] 62.5-25 mcg Inhaler INH SCH (08:22)
[2021-03-24] MEDS: AMMONIUM LACTATE 12% TOPICAL SCH ×2 (08:22→20:55)
--- NOTE | 2021-03-24 08:49 | Internal Med Progress Note ---
SUBJECTIVE Subjective Patient information: Note initiated : 03/24/21 at 8:46 am Service Date, if different from initiated Date: [] Patient: James Hyde 70 y/o M admitted on 03/15/21 for Hypoxia. Chief Complaint: [] Interval history: Interval history: History of present illness: Mr. Hyde is a 70 year old M Patient was found at the nursing facility without his CPAP or oxygen on. His oxygen was 39% and he was altered. EMS was called placed on BiPAP. In the ED is found to have a pH 7.19 with a CO2 of greater than 124. Is continued on BiPAP and improved mentation follow-up ABG improving. Patient denies any current complaints coughing shortness of breath no current chest pain. He chronically wears 4 L of oxygen. *Discussion with about him and he has been a DNR/ comfort care at the facility and she was surprised that the patient was sent to the ED but it sounds like the patient called 911 himself. 03/16 Patient comfortable on BiPAP is been on nasal cannula occasionally and then placed back on. INR decreased some likely not enough for Thora, will discuss with radiology. 03/17 Patient on on nasal cannula. Feeling little better. INR normalized, attempted thoracentesis at bedside was not successful. No new pains or complaints. 03/18-feels about the same as yesterday, radiology thoracentesis drained 600 cc bloody fluid. Hemoglobin dropped 14.3->12.7 03/19-The patient feels ok, hemoglobin trend stable. Respiratory status stable. CT chest/abd/pelvis ordered. 03/20-CT chest shows moderate size hemothorax, discussed with surgery-recommended chest tube. Radiology unable to place chest tube with CT guidance due to body habitus. Discussed transfer with [place] but no beds available. Discussed with [facility]-awaiting call back. [facility] also has not beds but placed patient on waiting list. [facility] later called back-denied transfer recommended a lateral transfer. 03/21-Call out to [facility] in [place]-left message. Still unable to find a bed for higher level of care. Patient stable today, reiterated that he would like to transfer further out, including to [place], if necessary. Discussed with [facility] in [place]-denied transfer patient. 5/25-Hemoglobin trending up, patient stable. Discussed multiple attempts to transfer to higher level of care. 03/23 Patient was on nasal cannula resting comfortable yesterday afternoon. This morning patient requiring BiPAP and desats quickly without it. We will obtain repeat CT chest. *I talked with a physician who is in charge of helping to place patients in the state when the local hospitals have a hard time. I ran the case by him and what was needed. He was concerned about patient's status and that he would likely not do well regardless and was worried about him coming over to the other side of the [facility] and dying without family present. He asked me to have a goals of care discussion with the patient to see if he really wanted to be that aggressive guarantee for a good outcome is not there. I talked with the patient and he agreed saying he did not want to go over to [place] if it likely is not can be a good outcome. He agreed to hospice was an appropriate choice, which is what he was on before he was admitted. Also talked to the who agreed with hospice comfort care as this was the understanding before he was admitted anyway. Patient will likely go back to facility with hospice care. He did agree to 1 more attempt of thoracentesis to see if that would make any difference. 03/24 Patient felt he was breathing better after the thoracentesis yesterday. He is on nasal cannula currently. Awaiting placement. Review of Systems: denies headache/fever/chills/nausea/vomiting/chest or abdominal pain/diarrhea. Otherwise see above. Constitutional Vitals: Vital Signs Temp Pulse Resp BP Pulse Ox 97.8 F 92 H 21 114/87 96 03/24/21 04:00 03/24/21 01:00 03/24/21 05:57 03/24/21 04:00 03/24/21 05:57 Period Temp Pulse Resp BP Sys/Agu[place]o Pulse Ox Last 24 Hr 97.3 F-98.4 F 74-104 16-34 83-160/54-123 86-99 Intake and Output 03/23/21 03/24/21 03/24/21 21:59 05:59 13:59 Intake Total 365 120 Output Total 150 375 Balance 215 -255 Weight 182.48 kg Intake & Output: Intake & Output 05/26/21 05/27/21 05/27/21 21:59 05:59 13:59 Intake Total 365 120 Output Total 150 375 Balance 215 -255 Weight 182.48 kg Intake: Oral 365 120 Output: Urine Catheter Amount 150 375 Other: Meal Dinner Percent of Meal Consumed 25% Feeding Ability Assist with Tray Set Up Urine Appearance Cloudy Clear Sediment Urine Color Pale Exam: General: Alert, Awake, No acute Distress, morbid obesity Eyes/N/T: EOMI, , Head/Neck: neck supple, CV: RRR, No murmurs, Pulm: Diminished b/l but better, no wheezing Abd: soft, nontender, +BS x4, rotund Ext: no clubbing/cyanosis mild b/l LE edema, venous stasis changes bilateral lower extremities Neuro: Alert, no focal deficits, moves all extremities, Skin: warm/dry OBJ DATA Labs CBC & Chem 7: 03/23/21 05:44 03/22/21 05:55 Labs: Abnormal Lab Results 03/23/21 03/22/21 03/22/21 05:44 05:55 05:55 RBC 3.89 L Hgb 11.4 L 12.0 L Hct 38.8 L MCV 107.5 H MCHC 28.7 L MPV 10.7 H Lymph # (Auto) 1.28 L Chloride 87 L Carbon Dioxide 45 H* Anion Gap 5.0 L Meds: Medications Acetaminophen (Acetaminophen 500 Mg Tablet) 1,000 mg PO TID [facility]; Protocol Last Admin: 03/24/21 08:18 Dose: 1,000 mg Documented by: Acetaminophen (Acetaminophen 325 Mg Tablet) 650 mg PO Q6HP PRN PRN Reason: PAIN/FEVER > 101 Albuterol Sulfate (Albuterol Sulfate 200 Puff Inhaler) 2 puff INH QIDP PRN PRN Reason: Wheezing Albuterol/Ipratropium (Ipratropium/Albuterol 3 Ml Ampul.Neb) 3 ml NEB TID [facility] Last Admin: 03/23/21 21:30 Dose: 3 ml Documented by: Albuterol/Ipratropium (Ipratropium/Albuterol 3 Ml Ampul.Neb) 3 ml NEB Q4HP PRN PRN Reason: Shortness Of Breath Buspirone HCl (Buspirone 5 Mg Tablet) 10 mg PO BID [facility] Last Admin: 03/24/21 08:20 Dose: 10 mg Documented by: Calcium Carbonate/Glycine (Calcium Carbonate 500 Mg Tab.Chew) 500 mg PO QDAY PRN PRN Reason: Indigestion Diphenhydramine HCl (Diphenhydramine 25 Mg Capsule) 25 mg PO Q6HP PRN PRN Reason: Allergic Symptoms Last Admin: 03/24/21 08:19 Dose: 25 mg Documented by: Docusate Sodium (Docusate Sodium 100 Mg Capsule) 100 mg PO BID [facility] Last Admin: 03/24/21 08:20 Dose: 100 mg Documented by: Fluoxetine HCl (Fluoxetine Hcl 20 Mg Capsule) 20 mg PO DAILY [facility] Last Admin: 03/24/21 08:19 Dose: 20 mg Documented by: Glucose Oxid/Lactoperoxid/Muramidas (Lactoperoxi/Gluc Oxid/Pot Thio 1 Each Gel..Ea.) 1 each TOPICAL BID PRN PRN Reason: Dry Mouth Magnesium Sulfate (Magnesium Sulfate) 2 gm in 50 mls @ 50 mls/hr IV UD PRN PRN Reason: Magnesium </= 1.6 Potassium Chloride 40 meq/ (Dextrose) 520 mls @ 130 mls/hr IV UD PRN PRN Reason: Potassium < 3 Lactulose (Lactulose 20 Gm/30 Ml Oral.Ibeth) 20 gm PO DAILYP PRN PRN Reason: Constipation Loperamide HCl (Loperamide 2 Mg Capsule) 2 mg PO Q4HP PRN PRN Reason: Diarrhea Last Admin: 03/20/21 14:38 Dose: 2 mg Documented by: Lorazepam (Lorazepam 0.5 Mg Tablet) 0.5 mg PO Q6HP PRN PRN Reason: Agitation Last Admin: 03/23/21 09:51 Dose: 0.5 mg Documented by: Metformin HCl (Metformin 500 Mg Tablet) [address] [facility] Last Admin: 03/24/21 08:19 Dose: 500 mg Documented by: Metoprolol Succinate (Metoprolol Succinate 50 Mg Tab.Xl.24h) 100 mg PO QDAY [facility] Last Admin: 03/24/21 08:20 Dose: 100 mg Documented by: Metoprolol Tartrate (Metoprolol Tartrate 5 Mg/5 Ml Vial) 5 mg IV Q2HP PRN PRN Reason: Tachyarrhythmias HR>110 Last Admin: 03/19/21 14:33 Dose: 5 mg Documented by: Morphine Sulfate (Morphine 2 Mg/Ml Vial) 1 - 4 mg IV Q3HP PRN; Protocol PRN Reason: Per Pain Protocol Last Admin: 03/23/21 22:24 Dose: 2 mg Documented by: Morphine Sulfate (Morphine 20 Mg/Ml Oral.Conc) 5 mg PO Q6HP PRN PRN Reason: AIR HUNGER Nystatin (Nystatin Powder Bottle 15gm) 1 dose TOPICAL TIDP PRN PRN Reason: Skin Irritation Last Admin: 03/24/21 08:21 Dose: 1 dose Documented by: Ondansetron HCl (Ondansetron 4 Mg/2 Ml Vial) 4 mg IV Q4HP PRN PRN Reason: Nausea And Vomiting Oxycodone HCl (Oxycodone Hcl 5 Mg Tablet) 5 mg PO Q4HP PRN; Protocol PRN Reason: Pain Last Admin: 03/24/21 08:20 Dose: 5 mg Documented by: Pantoprazole Sodium (Pantoprazole 40 Mg Tablet) 40 mg PO QAMAC [facility] Last Admin: 03/24/21 08:19 Dose: 40 mg Documented by: Umeclidinium- Vilanterol [Anoro Ellipta] 62.5-25 Mcg Inhaler 1 dose INH QDAY [facility] Last Admin: 03/24/21 08:22 Dose: 1 dose Documented by: Ammonium Lactate 12 (% Lotion) 1 dose TOPICAL BID [facility] Last Admin: 03/24/21 08:22 Dose: Not Given Documented by: Polyethylene Glycol (Polyethylene Glycol 3350 17 Gm Packet) 17 gm PO DAILYP PRN PRN Reason: Constipation Potassium Chloride (Potassium Chloride 20 Meq Tablet) 40 meq PO UD PRN PRN Reason: Potssium is 3-3.5 Potassium Chloride (Potassium Chloride 20 Meq Tablet) 40 meq PO UD PRN PRN Reason: Potassium < 3 Quetiapine Fumarate (Quetiapine 25 Mg Tablet) 12.5 mg PO HS [facility] Last Admin: 03/23/21 21:29 Dose: 12.5 mg Documented by: Senna (Sennosides 1 Tablet) 2 tab PO DAILYP PRN PRN Reason: Constipation Simethicone (Simethicone 80 Mg Tab.Chew) 160 mg CHEWED BID [facility] Last Admin: 03/24/21 08:19 Dose: 160 mg Documented by: Sodium Chloride (0.9 % Sodium Chloride 10 Ml Syringe) 10 ml IV Q8 [facility] Last Admin: 03/24/21 05:24 Dose: 10 ml Documented by: Torsemide (Torsemide 10 Mg Tablet) 20 mg PO QDAY [facility] Last Admin: 03/24/21 08:19 Dose: 20 mg Documented by: A/P Narrative A/P Narrative: A: *Moderate right hemothorax: s/p 600 ml bloody thoracentesis (03/18) & thora (03/23) of 1400cc bloody *Acute on chronic hypercapnic/hypoxic respiratory failure (4L O2 @home and CPAP): 2/2 above -resolved, on NC this morning *Encephalopathy: 2/2 above -resolved *RAMAKRISHNA/obesity hypoventilation syndrome: On cpap *Morbid obesity *A. fib: On warfarin prior to admit *h/o diastolic CHF: -RV mod-sev dilated, right atrium dilated, mod Pulm HTN *COPD (on 4L @home): *Opiate dependence with chronic LBP: *Depression/anxiety: *Deconditioning/debility: Patient is wheelchair-bound and unable to transfer by self *pressure ulcers *Polypharmcy: P: -awaiting placement, with Hospice -Continue Toprol, -nocturnal BiPAP and prn daytime -wound care for decubitus pressure injury -continue home medications except coumadin and spironolactone -pt/ot -CM for placement -ppx: SCD, no chemical d/t hemothorax DNR Time Spent With Patient Time: Total time spent is greater than 50% in coordination of care (as docume nted) at patient's floor/unit and/or counseling patient: QUALITY Stroke Symptom Onset Unknown: No VTE Deep Vein Thrombosis/Pulmonary Embolism Present on Admission: No
[2021-03-24] MEDS: QUEtiapine 25 MG TABLET PO SCH (20:50)
[2021-03-24] MEDS: morphine 2 MG/ML VIAL IV PRN (20:51)
[2021-03-25] MEDS: 0.9 % SODIUM CHLORIDE 10 ML SYRINGE IV SCH ×3 (05:59→21:06)
[2021-03-25] MEDS: IPRATROPIUM/ALBUTEROL 3 ML AMPUL.NEB NEB SCH ×3 (07:50→20:07)
[2021-03-25] MEDS: diphenhydrAMINE 25 MG CAPSULE PO PRN (08:56)
[2021-03-25] MEDS: DOCUSATE SODIUM 100 MG CAPSULE PO SCH ×2 (08:56→21:02)
[2021-03-25] MEDS: PANTOPRAZOLE 40 MG TABLET PO SCH (08:56)
[2021-03-25] MEDS: SIMETHICONE 80 MG TAB.CHEW CHEWED SCH ×2 (08:56→21:03)
[2021-03-25] MEDS: metFORMIN 500 MG TABLET PO SCH ×2 (08:57→17:27)
[2021-03-25] MEDS: TORSEMIDE 10 MG TABLET PO SCH (08:57)
[2021-03-25] MEDS: busPIRone 5 MG TABLET PO SCH ×2 (08:57→21:04)
[2021-03-25] MEDS: FLUoxetine HCL 20 MG CAPSULE PO SCH (08:57)
[2021-03-25] MEDS: oxyCODONE HCL 5 MG TABLET PO PRN ×2 (08:57→21:12)
[2021-03-25] MEDS: ACETAMINOPHEN 500 MG TABLET PO SCH ×3 (08:58→21:04)
[2021-03-25] MEDS: Umeclidinium-Vilanterol [Anoro Ellipta] 62.5-25 mcg Inhaler INH SCH (08:58)
[2021-03-25] MEDS: AMMONIUM LACTATE 12% TOPICAL SCH ×2 (08:58→21:00)
[2021-03-25] MEDS: METOPROLOL SUCCINATE 50 MG TAB.XL.24H PO SCH (08:58)
--- NOTE | 2021-03-25 10:05 | Internal Med Progress Note ---
SUBJECTIVE Subjective Patient information: Note initiated : 03/25/21 at 10:03 am Service Date, if different from initiated Date: [] Patient: James Hyde 70 y/o M admitted on 03/15/21 for Hypoxia. Chief Complaint: [] Interval history: Interval history: History of present illness: Mr. Hyde is a 70 year old M Patient was found at the nursing facility without his CPAP or oxygen on. His oxygen was 39% and he was altered. EMS was called placed on BiPAP. In the ED is found to have a pH 7.19 with a CO2 of greater than 124. Is continued on BiPAP and improved mentation follow-up ABG improving. Patient denies any current complaints coughing shortness of breath no current chest pain. He chronically wears 4 L of oxygen. *Discussion with about him and he has been a DNR/ comfort care at the facility and she was surprised that the patient was sent to the ED but it sounds like the patient called 911 himself. 03/16 Patient comfortable on BiPAP is been on nasal cannula occasionally and then placed back on. INR decreased some likely not enough for Thora, will discuss with radiology. 03/17 Patient on on nasal cannula. Feeling little better. INR normalized, attempted thoracentesis at bedside was not successful. No new pains or complaints. 03/18-feels about the same as yesterday, radiology thoracentesis drained 600 cc bloody fluid. Hemoglobin dropped 14.3->12.7 03/19-The patient feels ok, hemoglobin trend stable. Respiratory status stable. CT chest/abd/pelvis ordered. 03/20-CT chest shows moderate size hemothorax, discussed with surgery-recommended chest tube. Radiology unable to place chest tube with CT guidance due to body habitus. Discussed transfer with [facility] but no beds available. Discussed with [facility]-awaiting call back. [facility] also has not beds but placed patient on waiting list. [place] later called back-denied transfer recommended a lateral transfer. 03/21-Call out to [facility] in [place]-left message. Still unable to find a bed for higher level of care. Patient stable today, reiterated that he would like to transfer further out, including to [place], if necessary. Discusse d with [facility] in [place]-denied transfer patient. 03/22-Hemoglobin trending up, patient stable. Discussed multiple attempts to transfer to higher level of care. 03/23 Patient was on nasal cannula resting comfortable yesterday afternoon. This morning patient requiring BiPAP and desats quickly without it. We will obtain repeat CT chest. *I talked with a physician who is in charge of helping to place patients in the state when the local hospitals have a hard time. I ran the case by him and what was needed. He was concerned about patient's status and that he would likely n ot do well regardless and was worried about him coming over to the other side of the [facility] and dying without family present. He asked me to have a goals of care discussion with the patient to see if he really wanted to be that aggressive guarantee for a good outcome is not there. I talked with the patient and he agreed saying he did not want to go over to [place] if it likely is not can be a good outcome. He agreed to hospice was an appropriate choice, which is what he was on before he was admitted. Also talked to the who agreed with hospice comfort care as this was the understanding before he was admitted anyway. Patient will likely go back to facility with hospice care. He did agree to 1 more attempt of thoracentesis to see if that would make any difference. 03/24 Patient felt he was breathing better after the thoracentesis yesterday. He is on nasal cannula currently. Awaiting placement. 03/25 No overnight event or new complaints. On nasal cannula during the day not requi ring BiPAP during the day. Still awaiting placement. Review of Systems: denies headache/fever/chills/nausea/vomiting/chest or abdominal pain/diarrhea. Otherwise see above. Constitutional Vitals: Vital Signs Temp Pulse Resp BP Pulse Ox 97.1 F 96 H 16 99/81 100 03/25/21 08:00 03/25/21 07:51 03/25/21 08:00 03/25/21 08:00 03/25/21 08:00 Period Temp Pulse Resp BP Sys/Aguayo Pulse Ox Last 24 Hr 97.1 F-98.9 F 85-112 06-24 85-110/52-81 95-100 Intake and Output 03/24/21 03/25/21 03/25/21 21:59 05:59 13:59 Intake Total 1200 425 480 Output Total 300 425 Balance 900 0 480 Weight 184.703 kg Intake & Output: Intake & Output 03/24/21 03/25/21 03/25/21 21:59 05:59 13:59 Intake Total 1200 425 480 Output Total 300 425 Balance 900 0 480 Weight 184.703 kg Intake: Oral 1200 425 480 Output: Urine Catheter Amount 300 425 Other: Meal snack Breakfast Percent of Meal Consumed 100% 100% Feeding Ability Independent Urine Appearance Clear Clear Urine Color Dark Yellow Dark Yellow Urine Odor Strong Strong Exam: General: Alert, Awake, No acute Distress, morbid obesity Eyes/N/T: EOMI, , Head/Neck: neck supple, CV: RRR, No murmurs, Pulm: Diminished b/l but better, no wheezing Abd: soft, nontender, +BS x4, rotund Ext: no clubbing/cyanosis mild b/l LE edema, venous stasis changes bilateral lower extremities Neuro: Alert, no focal deficits, moves all extremities, Skin: warm/dry OBJ DATA Labs CBC & Chem 7: 03/23/21 05:44 03/22/21 05:55 Labs: Abnormal Lab Results 03/23/21 05:44 Hgb 11.4 L Hct 38.8 L Meds: Medications Acetaminophen (Acetaminophen 500 Mg Tablet) 1,000 mg PO TID [facility]; Protocol Last Admin: 03/25/21 08:58 Dose: 1,000 mg Documented by: Acetaminophen (Acetaminophen 325 Mg Tablet) 650 mg PO Q6HP PRN PRN Reason: PAIN/FEVER > 101 Albuterol Sulfate (Albuterol Sulfate 200 Puff Inhaler) 2 puff INH QIDP PRN PRN Reason: Wheezing Albuterol/Ipratropium (Ipratropium/Albuterol 3 Ml Ampul.Neb) 3 ml NEB TID [facility] Last Admin: 03/25/21 07:50 Dose: 3 ml Documented by: Albuterol/Ipratropium (Ipratropium/Albuterol 3 Ml Ampul.Neb) 3 ml NEB Q4HP PRN PRN Reason: Shortness Of Breath Buspirone HCl (Buspirone 5 Mg Tablet) 10 mg PO BID [facility] Last Admin: 03/25/21 08:57 Dose: 10 mg Documented by: Calcium Carbonate/Glycine (Calcium Carbonate 500 Mg Tab.Chew) 500 mg PO QDAY PRN PRN Reason: Indigestion Last Admin: 03/24/21 09:46 Dose: 500 mg Documented by: Diphenhydramine HCl (Diphenhydramine 25 Mg Capsule) 25 mg PO Q6HP PRN PRN Reason: Allergic Symptoms Last Admin: 03/25/21 08:56 Dose: 25 mg Documented by: Docusate Sodium (Docusate Sodium 100 Mg Capsule) 100 mg PO BID [facility] Last Admin: 03/25/21 08:56 Dose: 100 mg Documented by: Fluoxetine HCl (Fluoxetine Hcl 20 Mg Capsule) 20 mg PO DAILY [facility] Last Admin: 03/25/21 08:57 Dose: 20 mg Documented by: Glucose Oxid/Lactoperoxid/Muramidas (Lactoperoxi/Gluc Oxid/Pot Thio 1 Each Gel..Ea.) 1 each TOPICAL BID PRN PRN Reason: Dry Mouth Magnesium Sulfate (Magnesium Sulfate) 2 gm in 50 mls @ 50 mls/hr IV UD PRN PRN Reason: Magnesium </= 1.6 Potassium Chloride 40 meq/ (Dextrose) 520 mls @ 130 mls/hr IV UD PRN PRN Reason: Potassium < 3 Lactulose (Lactulose 20 Gm/30 Ml Oral.Ibeth) 20 gm PO DAILYP PRN PRN Reason: Constipation Last Admin: 03/24/21 09:46 Dose: 20 gm Documented by: Loperamide HCl (Loperamide 2 Mg Capsule) 2 mg PO Q4HP PRN PRN Reason: Diarrhea Last Admin: 03/20/21 14:38 Dose: 2 mg Documented by: Lorazepam (Lorazepam 0.5 Mg Tablet) 0.5 mg PO Q6HP PRN PRN Reason: Agitation Last Admin: 03/23/21 09:51 Dose: 0.5 mg Documented by: Metformin HCl (Metformin 500 Mg Tablet) 500 mg PO BIDCC [facility] Last Admin: 03/25/21 08:57 Dose: 500 mg Documented by: Metoprolol Succinate (Metoprolol Succinate 50 Mg Tab.Xl.24h) 100 mg PO QDAY [facility] Last Admin: 03/25/21 08:58 Dose: Not Given Documented by: Metoprolol Tartrate (Metoprolol Tartrate 5 Mg/5 Ml Vial) 5 mg IV Q2HP PRN PRN Reason: Tachyarrhythmias HR>110 Last Admin: 03/19/21 14:33 Dose: 5 mg Documented by: Morphine Sulfate (Morphine 2 Mg/Ml Vial) 1 - 4 mg IV Q3HP PRN; Protocol PRN Reason: Per Pain Protocol Last Admin: 03/24/21 20:51 Dose: 2 mg Documented by: Morphine Sulfate (Morphine 20 Mg/Ml Oral.Conc) 5 mg PO Q6HP PRN PRN Reason: AIR HUNGER Nystatin (Nystatin Powder Bottle 15gm) 1 dose TOPICAL TIDP PRN PRN Reason: Skin Irritation Last Admin: 03/24/21 08:21 Dose: 1 dose Documented by: Ondansetron HCl (Ondansetron 4 Mg/2 Ml Vial) 4 mg IV Q4HP PRN PRN Reason: Nausea And Vomiting Last Admin: 03/24/21 09:46 Dose: 4 mg Documented by: Oxycodone HCl (Oxycodone Hcl 5 Mg Tablet) 5 mg PO Q4HP PRN; Protocol PRN Reason: Pain Last Admin: 03/25/21 08:57 Dose: 5 mg Documented by: Pantoprazole Sodium (Pantoprazole 40 Mg Tablet) 40 mg PO QAMAC [facility] Last Admin: 03/25/21 08:56 Dose: 40 mg Documented by: Umeclidinium- Vilanterol [Anoro Ellipta] 62.5-25 Mcg Inhaler 1 dose INH QDAY [facility] Last Admin: 03/25/21 08:58 Dose: 1 dose Documented by: Ammonium Lactate 12 (% Lotion) 1 dose TOPICAL BID [facility] Last Admin: 03/25/21 08:58 Dose: Not Given Documented by: Polyethylene Glycol (Polyethylene Glycol 3350 17 Gm Packet) 17 gm PO DAILYP PRN PRN Reason: Constipation Potassium Chloride (Potassium Chloride 20 Meq Tablet) 40 meq PO UD PRN PRN Reason: Potssium is 3-3.5 Potassium Chloride (Potassium Chloride 20 Meq Tablet) 40 meq PO UD PRN PRN Reason: Potassium < 3 Quetiapine Fumarate (Quetiapine 25 Mg Tablet) 12.5 mg PO [facility] Last Admin: 03/24/21 20:50 Dose: 12.5 mg Documented by: Senna (Sennosides 1 Tablet) 2 tab PO DAILYP PRN PRN Reason: Constipation Simethicone (Simethicone 80 Mg Tab.Chew) 160 mg CHEWED BID [facility] Last Admin: 03/25/21 08:56 Dose: 160 mg Documented by: Sodium Chloride (0.9 % Sodium Chloride 10 Ml Syringe) 10 ml IV Q8 [facility] Last Admin: 03/25/21 05:59 Dose: 10 ml Documented by: Torsemide (Torsemide 10 Mg Tablet) 20 mg PO QDAY [facility] Last Admin: 03/25/21 08:57 Dose: 20 mg Documented by: A/P Narrative A/P Narrative: A: *Moderate right hemothorax: s/p 600 ml bloody thoracentesis (03/18) & thora (03/23) of 1400cc bloody *Acute on chronic hypercapnic/hypoxic respiratory failure (4L O2 @home and CPAP): 2/2 above -resolved, on NC this morning *Encephalopathy: 2/2 above -resolved *RAMAKRISHNA/obesity hypoventilation syndrome: On cpap *Morbid obesity *A. fib: On warfarin prior to admit *h/o diastolic CHF: -RV mod-sev dilated, right atrium dilated, mod Pulm HTN *COPD (on 4L @home): *Opiate dependence with chronic LBP: *Depression/anxiety: *Deconditioning/debility: Patient is wheelchair-bound and unable to transfer by self *pressure ulcers *Polypharmcy: P: -still awaiting placement, f/u with Hospice -Continue Toprol (decrease), -nocturnal BiPAP and prn daytime -wound care for decubitus pressure injury -continue home medications except coumadin and spironolactone -pt/ot -CM for placement -ppx: SCD, no chemical d/t hemothorax DNR Time Spent With Patient Time: Total time spent is greater than 50% in coordination of care (as documented) at patient's floor/unit and/or counseling patient: QUALITY Stroke Symptom Onset Unknown: No VTE Deep Vein Thrombosis/Pulmonary Embolism Present on Admission: No
[2021-03-25] MEDS ORDERED: LOPERAMIDE 2 MG CAPSULE PO PRN (11:19)
[2021-03-25] MEDS ORDERED: morphine 20 MG/ML ORAL.CONC PO PRN (11:19)
[2021-03-25] MEDS ORDERED: ONDANSETRON 4 MG/2 ML VIAL IV PRN (11:19)
[2021-03-25] MEDS ORDERED: LACTULOSE 20 GM/30 ML ORAL.SOL PO PRN (11:19)
[2021-03-25] MEDS ORDERED: ACETAMINOPHEN 325 MG TABLET PO PRN (11:19)
[2021-03-25] MEDS ORDERED: POTASSIUM CHLORIDE 40 MEQ in DEXTROSE 5% IN WATER 500 ML IV PRN (11:19)
[2021-03-25] MEDS ORDERED: NYSTATIN POWDER BOTTLE 15GM TOPICAL PRN (11:19)
[2021-03-25] MEDS ORDERED: METOPROLOL TARTRATE 5 MG/5 ML VIAL IV PRN (11:19)
[2021-03-25] MEDS ORDERED: CALCIUM CARBONATE 500 MG TAB.CHEW PO PRN (11:19)
[2021-03-25] MEDS ORDERED: IOPAMIDOL 100 ML BOTTLE IV ONE (11:19)
[2021-03-25] MEDS ORDERED: LACTOPEROXI/GLUC OXID/POT THIO 1 EACH GEL..EA. TOPICAL PRN (11:19)
[2021-03-25] MEDS ORDERED: POLYETHYLENE GLYCOL 3350 17 GM PACKET PO PRN (11:19)
[2021-03-25] MEDS ORDERED: MAGNESIUM SULFATE 2 GM/50 ML BAG IV PRN (11:19)
[2021-03-25] MEDS ORDERED: SENNOSIDES 1 TABLET PO PRN (11:19)
[2021-03-25] MEDS ORDERED: POTASSIUM CHLORIDE 20 MEQ TABLET PO PRN ×2 (11:19)
[2021-03-25] MEDS ORDERED: IPRATROPIUM/ALBUTEROL 3 ML AMPUL.NEB NEB PRN (11:19)
[2021-03-25] MEDS ORDERED: LORazepam 0.5 MG TABLET PO PRN (11:19)
[2021-03-25] MEDS ORDERED: morphine 2 MG/ML VIAL IV PRN (11:19)
[2021-03-25] MEDS ORDERED: ALBUTEROL SULFATE 200 PUFF INHALER INH PRN (11:19)
--- NOTE | 2021-03-25 11:39 | Non-GYN Cytology Report ---
Non Fruit Trimmer Cytology NG Diagnosis PLEURAL FLUID, RIGHT, THORACENTESIS: --- NO ATYPICAL OR MALIGNANT CELLS IDENTIFIED. --- REACTIVE MESOTHELIAL CELLS WITH ACUTE AND CHRONIC INFLAMMATION. (RLF:bmw) NG Micro Description ThinPrep, cytospin and cell block slides are examined and demonstrate a few reactive mesothelial cells, macrophages, lymphocytes and a few neutrophils. No atypical or malignant cells are identified. NG Gross Description Received 1000 mL red thick cloudy fluid. Electronically Signed Tiff Hamilton MD, FCAP Electronically Signed 03/25/2021 11:38
[2021-03-25] MEDS: QUEtiapine 25 MG TABLET PO SCH (21:03)
[2021-03-26] MEDS: 0.9 % SODIUM CHLORIDE 10 ML SYRINGE IV SCH ×4 (06:44→21:39)
[2021-03-26] MEDS ORDERED: METOPROLOL SUCCINATE 25 MG TAB.XL.24H PO SCH (09:00)
[2021-03-26] MEDS: DOCUSATE SODIUM 100 MG CAPSULE PO SCH ×2 (09:06→21:39)
[2021-03-26] MEDS: ACETAMINOPHEN 500 MG TABLET PO SCH ×3 (09:06→21:38)
[2021-03-26] MEDS: SIMETHICONE 80 MG TAB.CHEW CHEWED SCH ×2 (09:07→21:36)
[2021-03-26] MEDS: FLUoxetine HCL 20 MG CAPSULE PO SCH (09:07)
[2021-03-26] MEDS: PANTOPRAZOLE 40 MG TABLET PO SCH (09:08)
[2021-03-26] MEDS: busPIRone 5 MG TABLET PO SCH ×2 (09:08→21:38)
[2021-03-26] MEDS: AMMONIUM LACTATE 12% TOPICAL SCH ×2 (09:09→21:39)
[2021-03-26] MEDS: Umeclidinium-Vilanterol [Anoro Ellipta] 62.5-25 mcg Inhaler INH SCH (09:09)
[2021-03-26] MEDS: IPRATROPIUM/ALBUTEROL 3 ML AMPUL.NEB NEB SCH ×3 (09:13→20:08)
[2021-03-26] MEDS: metFORMIN 500 MG TABLET PO SCH ×2 (09:13→16:29)
[2021-03-26] MEDS: TORSEMIDE 10 MG TABLET PO SCH (09:17)
[2021-03-26] MEDS ORDERED: METOPROLOL SUCCINATE 25 MG TAB.XL.24H PO ONE (09:26)
[2021-03-26] MEDS: METOPROLOL SUCCINATE 50 MG TAB.XL.24H PO SCH (09:27)
[2021-03-26] MEDS: diphenhydrAMINE 25 MG CAPSULE PO PRN (09:36)
[2021-03-26] MEDS: oxyCODONE HCL 5 MG TABLET PO PRN ×3 (11:59→21:37)
--- NOTE | 2021-03-26 14:02 | Internal Med Progress Note ---
SUBJECTIVE Subjective Patient information: Note initiated : 03/26/21 at 2:00 pm Service Date, if different from initiated Date: [] Patient: James Hyde 70 y/o M admitted on 03/15/21 for Hypoxia. Chief Complaint: [] Interval history: Interval history: History of present illness: Mr. Hyde is a 70 year old M Patient was found at the nursing facility without his CPAP or oxygen on. His oxygen was 39% and he was altered. EMS was called placed on BiPAP. In the ED is found to have a pH 7.19 with a CO2 of greater than 124. Is continued on BiPAP and improved mentation follow-up ABG improving. Patient denies any current complaints coughing shortness of breath no current chest pain. He chronically wears 4 L of oxygen. *Discussion with about him and he has been a DNR/ comfort care at the facility and she was surprised that the patient was sent to the ED but it sounds like the patient called 911 himself. 03/16 Patient comfortable on BiPAP is been on nasal cannula occasionally and then placed back on. INR decreased some likely not enough for Thora, will discuss with radiology. 03/17 Patient on on nasal cannula. Feeling little better. INR normalized, attempted thoracentesis at bedside was not successful. No new pains or complaints. 03/18-feels about the same as yesterday, radiology thoracentesis drained 600 cc bloody fluid. Hemoglobin dropped 14.3->12.7 03/19-The patient feels ok, hemoglobin trend stable. Respiratory status stable. CT chest/abd/pelvis ordered. 03/20-CT chest shows moderate size hemothorax, discussed with surgery-recommended chest tube. Radiology unable to place chest tube with CT guidance due to body habitus. Discussed transfer with [facility] but no beds available. Discussed with [facility]-awaiting call back. [facility] also has not beds but placed patient on waiting list. [facility] later called back-denied transfer recommended a lateral transfer. 03/21-Call out to [facility] in [place]-left message. Still unable to find a bed for higher level of care. Patient stable today, reiterated that he would like to transfer further out, including to [place], if necessary. Discussed with [facility] in [place]-denied transfer patient. 5/25-Hemoglobin trending up, patient stable. Discussed multiple attempts to transfer to higher level of care. 03/23 Patient was on nasal cannula resting comfortable yesterday afternoon. This morning patient requiring BiPAP and desats quickly without it. We will obtain repeat CT chest. *I talked with a physician who is in charge of helping to place patients in the state when the local hospitals have a hard time. I ran the case by him and what was needed. He was concerned about patient's status and that he would likely not do well regardless and was worried about him coming over to the other side of the [facility] and dying without family present. He asked me to have a goals of care discussion with the patient to see if he really wanted to be that aggressive guarantee for a good outcome is not there. I talked with the patient and he agreed saying he did not want to go over to [place] if it likely is not can be a good outcome. He agreed to hospice was an appropriate choice, which is what he was on before he was admitted. Also talked to the who agreed with hospice comfort care as this was the understanding before he was admitted anyway. Patient will likely go back to facility with hospice care. He did agree to 1 more attempt of thoracentesis to see if that would make any difference. 03/24 Patient felt he was breathing better after the thoracentesis yesterday. He is on nasal cannula currently. Awaiting placement. 03/25 No overnight event or new complaints. On nasal cannula during the day not requiring BiPAP during the day. Still awaiting placement. 03/26 No change. Still waiting for placement emergently was set up for him to discharge back to facility on Sunday but the facility called back today and said they were not able to take due to staffing issues. Review of Systems: denies headache/fever/chills/nausea/vomiting/chest or abdominal pain/diarrhea. Otherwise see above. Constitutional Vitals: Vital Signs Temp Pulse Resp BP Pulse Ox 98.7 F 107 H 22 120/72 94 03/26/21 11:54 03/26/21 11:54 03/26/21 11:54 03/26/21 11:54 03/26/21 11:54 Period Temp Pulse Resp BP Sys/Aguayo Pulse Ox Last 24 Hr 96.3 F-98.7 F 80-107 16-90 85-120/54-73 90-98 Intake and Output 03/26/21 03/26/21 03/26/21 05:59 13:59 21:59 Intake Total 100 640 Output Total 450 Balance -350 640 Intake & Output: Intake & Output 03/26/21 03/26/21 03/26/21 05:59 13:59 21:59 Intake Total 100 640 Output Total 450 Balance -350 640 Intake: Oral 100 640 Output: Urine Catheter Amount 450 Other: Meal Lunch Percent of Meal Consumed 50% Feeding Ability Independent Urine Appearance Cloudy Urine Color Dark Yellow Stool Size Copious Stool Color Brown Stool Consistency Soft Formed # Bowel Movements 0 Exam: General: Alert, Awake, No acute Distress, morbid obesity Eyes/N/T: EOMI, , Head/Neck: neck supple, CV: RRR, No murmurs, Pulm: Diminished b/l but better, no wheezing Abd: soft, nontender, +BS x4, rotund Ext: no clubbing/cyanosis mild b/l LE edema, venous stasis changes bilateral lower extremities Neuro: Alert, no focal deficits, moves all extremities, Skin: warm/dry OBJ DATA Labs CBC & Chem 7: 03/23/21 05:44 03/22/21 05:55 Meds: Medications Acetaminophen (Acetaminophen 500 Mg Tablet) 1,000 mg PO TID [facility]; Protocol Last Admin: 03/26/21 09:06 Dose: 1,000 mg Documented by: Acetaminophen (Acetaminophen 325 Mg Tablet) 650 mg PO Q6HP PRN PRN Reason: PAIN/FEVER > 101 Albuterol Sulfate (Albuterol Sulfate 200 Puff Inhaler) 2 puff INH QIDP PRN PRN Reason: Wheezing Albuterol/Ipratropium (Ipratropium/Albuterol 3 Ml Ampul.Neb) 3 ml NEB TID [facility] Last Admin: 03/26/21 09:13 Dose: 3 ml Documented by: Albuterol/Ipratropium (Ipratropium/Albuterol 3 Ml Ampul.Neb) 3 ml NEB Q4HP PRN PRN Reason: Shortness Of Breath Buspirone HCl (Buspirone 5 Mg Tablet) 10 mg PO BID [facility] Last Admin: 03/26/21 09:08 Dose: 10 mg Documented by: Calcium Carbonate/Glycine (Calcium Carbonate 500 Mg Tab.Chew) 500 mg PO QDAY PRN PRN Reason: Indigestion Diphenhydramine HCl (Diphenhydramine 25 Mg Capsule) 25 mg PO Q6HP PRN PRN Reason: Allergic Symptoms Last Admin: 03/26/21 09:36 Dose: 25 mg Documented by: Docusate Sodium (Docusate Sodium 100 Mg Capsule) 100 mg PO BID [facility] Last Admin: 03/26/21 09:06 Dose: 100 mg Documented by: Fluoxetine HCl (Fluoxetine Hcl 20 Mg Capsule) 20 mg PO DAILY [facility] Last Admin: 03/26/21 09:07 Dose: 20 mg Documented by: Glucose Oxid/Lactoperoxid/Muramidas (Lactoperoxi/Gluc Oxid/Pot Thio 1 Each Gel..Ea.) 1 each TOPICAL BID PRN PRN Reason: Dry Mouth Magnesium Sulfate (Magnesium Sulfate) 2 gm in 50 mls @ 50 mls/hr IV UD PRN PRN Reason: Magnesium </= 1.6 Potassium Chloride 40 meq/ (Dextrose) 520 mls @ 130 mls/hr IV UD PRN PRN Reason: Potassium < 3 Lactulose (Lactulose 20 Gm/30 Ml Oral.Ibeth) 20 gm PO DAILYP PRN PRN Reason: Constipation Last Admin: 03/26/21 09:08 Dose: 20 gm Documented by: Loperamide HCl (Loperamide 2 Mg Capsule) 2 mg PO Q4HP PRN PRN Reason: Diarrhea Lorazepam (Lorazepam 0.5 Mg Tablet) 0.5 mg PO Q6HP PRN PRN Reason: Agitation Metformin HCl (Met[facility] 500 Mg Tablet) [facility] Last Admin: 03/26/21 09:13 Dose: 500 mg Documented by: Metoprolol Succinate (Metoprolol Succinate 50 Mg Tab.Xl.24h) 25 mg PO QDAY [facility] Last Admin: 03/26/21 09:27 Dose: Not Given Documented by: Metoprolol Tartrate (Metoprolol Tartrate 5 Mg/5 Ml Vial) 5 mg IV Q2HP PRN PRN Reason: Tachyarrhythmias HR>110 Morphine Sulfate (Morphine 2 Mg/Ml Vial) 1 - 4 mg IV Q3HP PRN; Protocol PRN Reason: Per Pain Protocol Morphine Sulfate (Morphine 20 Mg/Ml Oral.Conc) 5 mg PO Q6HP PRN PRN Reason: AIR HUNGER Nystatin (Nystatin Powder Bottle 15gm) 1 dose TOPICAL TIDP PRN PRN Reason: Skin Irritation Ondansetron HCl (Ondansetron 4 Mg/2 Ml Vial) 4 mg IV Q4HP PRN PRN Reason: Nausea And Vomiting Oxycodone HCl (Oxycodone Hcl 5 Mg Tablet) 5 mg PO Q4HP PRN; Protocol PRN Reason: Pain Last Admin: 03/26/21 11:59 Dose: 5 mg Documented by: Pantoprazole Sodium (Pantoprazole 40 Mg Tablet) 40 mg PO QAMAC [facility] Last Admin: 03/26/21 09:08 Dose: 40 mg Documented by: Umeclidinium- Vilanterol [Anoro Ellipta] 62.5-25 Mcg Inhaler 1 dose INH QDAY [facility] Last Admin: 03/26/21 09:09 Dose: 1 dose Documented by: Ammonium Lactate 12 (% Lotion) 1 dose TOPICAL BID [facility] Last Admin: 03/26/21 09:09 Dose: Not Given Documented by: Polyethylene Glycol (Polyethylene Glycol 3350 17 Gm Packet) 17 gm PO DAILYP PRN PRN Reason: Constipation Potassium Chloride (Potassium Chloride 20 Meq Tablet) 40 meq PO UD PRN PRN Reason: Potssium is 3-3.5 Potassium Chloride (Potassium Chloride 20 Meq Tablet) 40 meq PO UD PRN PRN Reason: Potassium < 3 Quetiapine Fumarate (Quetiapine 25 Mg Tablet) 12.5 mg PO HS [facility] Last Admin: 03/25/21 21:03 Dose: 12.5 mg Documented by: Senna (Sennosides 1 Tablet) 2 tab PO DAILYP PRN PRN Reason: Constipation Simethicone (Simethicone 80 Mg Tab.Chew) 160 mg CHEWED BID [facility] Last Admin: 03/26/21 09:07 Dose: 160 mg Documented by: Sodium Chloride (0.9 % Sodium Chloride 10 Ml Syringe) 10 ml IV Q8 [facility] Last Admin: 03/26/21 09:17 Dose: 10 ml Documented by: Torsemide (Torsemide 10 Mg Tablet) 20 mg PO QDAY [facility] Last Admin: 03/26/21 09:17 Dose: 20 mg Documented by: A/P Narrative A/P Narrative: A: *Moderate right hemothorax: s/p 600 ml bloody thoracentesis (03/18) & thora (03/23) of 1400cc bloody *Acute on chronic hypercapnic/hypoxic respiratory failure (4L O2 @home and CPAP): 2/2 above -resolved, on NC this morning *Encephalopathy: 2/2 above -resolved *RAMAKRISHNA/obesity hypoventilation syndrome: On cpap *Morbid obesity *A. fib: On warfarin prior to admit *h/o diastolic CHF: -RV mod-sev dilated, right atrium dilated, mod Pulm HTN *COPD (on 4L @home): *Opiate dependence with chronic LBP: *Depression/anxiety: *Deconditioning/debility: Patient is wheelchair-bound and unable to transfer by self *pressure ulcers *Polypharmcy: P: -still awaiting placement, f/u with Hospice -Continue Toprol (decreased), -nocturnal BiPAP and prn daytime -wound care for decubitus pressure injury -continue home medications except coumadin and spironolactone -pt/ot -CM for placement -ppx: SCD, no chemical d/t hemothorax DNR Time Spent With Patient Time: Total time spent is greater than 50% in coordination of care (as documented) at patient's floor/unit and/or counseling patient: QUALITY Stroke Symptom Onset Unknown: No VTE Deep Vein Thrombosis/Pulmonary Embolism Present on Admission: No
[2021-03-26] MEDS: QUEtiapine 25 MG TABLET PO SCH (21:36)
[2021-03-27] MEDS: diphenhydrAMINE 25 MG CAPSULE PO PRN ×3 (01:58→20:52)
[2021-03-27] MEDS: 0.9 % SODIUM CHLORIDE 10 ML SYRINGE IV SCH ×3 (04:15→21:00)
[2021-03-27] MEDS: oxyCODONE HCL 5 MG TABLET PO PRN ×4 (04:18→20:53)
--- NOTE | 2021-03-27 08:00 | Internal Med Progress Note ---
SUBJECTIVE Subjective Patient information: Note initiated : 03/27/21 at 7:59 am Service Date, if different from initiated Date: [] Patient: James Hyde 70 y/o M admitted on 03/15/21 for Hypoxia. Chief Complaint: [] Interval history: Interval history: History of present illness: Mr. Hyde is a 70 year old M Patient was found at the nursing facility without his CPAP or oxygen on. His oxygen was 39% and he was altered. EMS was called placed on BiPAP. In the ED is found to have a pH 7.19 with a CO2 of greater than 124. Is continued on BiPAP and improved mentation follow-up ABG improving. Patient denies any current complaints coughing shortness of breath no current chest pain. He chronically wears 4 L of oxygen. *Discussion with about him and he has been a DNR/ comfort care at the facility and she was surprised that the patient was sent to the ED but it sounds like the patient called 911 himself. 03/16 Patient comfortable on BiPAP is been on nasal cannula occasionally and then placed back on. INR decreased some likely not enough for Thora, will discuss with radiology. 03/17 Patient on on nasal cannula. Feeling little better. INR normalized, attempted thoracentesis at bedside was not successful. No new pains or complaints. 03/18-feels about the same as yesterday, radiology thoracentesis drained 600 cc bloody fluid. Hemoglobin dropped 14.3->12.7 03/19-The patient feels ok, hemoglobin trend stable. Respiratory status stable. CT chest/abd/pelvis ordered. 03/20-CT chest shows moderate size hemothorax, discussed with surgery-recommended chest tube. Radiology unable to place chest tube with CT guidance due to body habitus. Discussed transfer with [facility] but no beds available. Discussed with [facility]-awaiting call back. [facility] also has not beds but placed patient on waiting list. [facility] later called back-denied transfer recommended a lateral transfer. 03/21-Call out to [facility] in [place]-left message. Still unable to find a bed for higher level of care. Patient stable today, reiterated that he would like to transfer further out, including to [place], if necessary. Discussed with [facility] in [place]-denied transfer patient. 5/25-Hemoglobin trending up, patient stable. Discussed multiple attempts to transfer to higher level of care. 03/23 Patient was on nasal cannula resting comfortable yesterday afternoon. This morning patient requiring BiPAP and desats quickly without it. We will obtain repeat CT chest. *I talked with a physician who is in charge of helping to place patients in the state when the local hospitals have a hard time. I ran the case by him and what was needed. He was concerned about patient's status and that he would likely not do well regardless and was worried about him coming over to the other side of the counts include 234 beds at the [facility] and dying without family present. He asked me to have a goals of care discussion with the patient to see if he really wanted to be that aggressive guarantee for a good outcome is not there. I talked with the patient and he agreed saying he did not want to go over to [place] if it likely is not can be a good outcome. He agreed to hospice was an appropriate choice, which is what he was on before he was admitted. Also talked to the who agreed with hospice comfort care as this was the understanding before he was admitted anyway. Patient will likely go back to facility with hospice care. He did agree to 1 more attempt of thoracentesis to see if that would make any difference. 03/24 Patient felt he was breathing better after the thoracentesis yesterday. He is on nasal cannula currently. Awaiting placement. 03/25 No overnight event or new complaints. On nasal cannula during the day not requiring BiPAP during the day. Still awaiting placement. 03/26 No change. Still waiting for placement emergently was set up for him to discharge back to facility on Sunday but the facility called back today and said they were not able to take due to staffing issues. 03/27 No changes. Patient stable. Still awaiting discharge which will not likely be Sunday given the holiday. Review of Systems: denies headache/fever/chills/nausea/vomiting/chest or abdominal pain/diarrhea. Otherwise see above. Constitutional Vitals: Vital Signs Temp Pulse Resp BP Pulse Ox 97.3 F 102 H 18 111/63 97 03/27/21 07:51 03/27/21 07:51 03/27/21 07:51 03/27/21 07:51 03/27/21 07:51 Period Temp Pulse Resp BP Sys/Aguayo Pulse Ox Last 24 Hr 97.3 F-98.9 F 84-112 18-94 86-120/53-72 94-98 Intake and Output 03/26/21 03/27/21 03/27/21 21:59 05:59 13:59 Intake Total 400 Output Total 1000 600 Balance -1000 -200 Weight 187.152 kg Intake & Output: Intake & Output 03/26/21 03/27/21 03/27/21 21:59 05:59 13:59 Intake Total 400 Output Total 1000 600 Balance -1000 -200 Weight 187.152 kg Intake: Oral 400 Output: Urine Catheter Amount 1000 600 Other: Urine Appearance Cloudy Cloudy Uretheral (Galan) Cloudy Urine Color Dark Yellow Dark Yellow Uretheral (Galan) Dark Yellow Exam: General: Alert, Awake, No acute Distress, morbid obesity Eyes/N/T: EOMI, , Head/Neck: neck supple, CV: RRR, No murmurs, Pulm: Diminished b/l but better, no wheezing Abd: soft, nontender, +BS x4, rotund Ext: no clubbing/cyanosis mild b/l LE edema, venous stasis changes bilateral lower extremities Neuro: Alert, no focal deficits, moves all extremities, Skin: warm/dry OBJ DATA Labs CBC & Chem 7: 03/23/21 05:44 03/22/21 05:55 Meds: Medications Acetaminophen (Acetaminophen 500 Mg Tablet) 1,000 mg PO TID [facility]; Protocol Last Admin: 03/26/21 21:38 Dose: 1,000 mg Documented by: Acetaminophen (Acetaminophen 325 Mg Tablet) 650 mg PO Q6HP PRN PRN Reason: PAIN/FEVER > 101 Albuterol Sulfate (Albuterol Sulfate 200 Puff Inhaler) 2 puff INH QIDP PRN PRN Reason: Wheezing Albuterol/Ipratropium (Ipratropium/Albuterol 3 Ml Ampul.Neb) 3 ml NEB TID [facility] Last Admin: 03/26/21 20:08 Dose: 3 ml Documented by: Albuterol/Ipratropium (Ipratropium/Albuterol 3 Ml Ampul.Neb) 3 ml NEB Q4HP PRN PRN Reason: Shortness Of Breath Buspirone HCl (Buspirone 5 Mg Tablet) 10 mg PO BID [facility] Last Admin: 03/26/21 21:38 Dose: 10 mg Documented by: Calcium Carbonate/Glycine (Calcium Carbonate 500 Mg Tab.Chew) 500 mg PO QDAY PRN PRN Reason: Indigestion Diphenhydramine HCl (Diphenhydramine 25 Mg Capsule) 25 mg PO Q6HP PRN PRN Reason: Allergic Symptoms Last Admin: 03/27/21 01:58 Dose: 25 mg Documented by: Docusate Sodium (Docusate Sodium 100 Mg Capsule) 100 mg PO BID [facility] Last Admin: 03/26/21 21:39 Dose: 100 mg Documented by: Fluoxetine HCl (Fluoxetine Hcl 20 Mg Capsule) 20 mg PO DAILY [facility] Last Admin: 03/26/21 09:07 Dose: 20 mg Documented by: Glucose Oxid/Lactoperoxid/Muramidas (Lactoperoxi/Gluc Oxid/Pot Thio 1 Each Gel..Ea.) 1 each TOPICAL BID PRN PRN Reason: Dry Mouth Magnesium Sulfate (Magnesium Sulfate) 2 gm in 50 mls @ 50 mls/hr IV UD PRN PRN Reason: Magnesium </= 1.6 Potassium Chloride 40 meq/ (Dextrose) 520 mls @ 130 mls/hr IV UD PRN PRN Reason: Potassium < 3 Lactulose (Lactulose 20 Gm/30 Ml Oral.Ibeth) 20 gm PO DAILYP PRN PRN Reason: Constipation Last Admin: 03/26/21 09:08 Dose: 20 gm Documented by: Loperamide HCl (Loperamide 2 Mg Capsule) 2 mg PO Q4HP PRN PRN Reason: Diarrhea Lorazepam (Lorazepam 0.5 Mg Tablet) 0.5 mg PO Q6HP PRN PRN Reason: Agitation Last Admin: 03/26/21 22:44 Dose: 0.5 mg Documented by: Metformin HCl (Met[facility] 500 Mg Tablet) [facility] Last Admin: 03/26/21 16:29 Dose: 500 mg Documented by: Metoprolol Succinate (Metoprolol Succinate 50 Mg Tab.Xl.24h) 25 mg PO QDAY [facility] Last Admin: 03/26/21 09:27 Dose: Not Given Documented by: Metoprolol Tartrate (Metoprolol Tartrate 5 Mg/5 Ml Vial) 5 mg IV Q2HP PRN PRN Reason: Tachyarrhythmias HR>110 Morphine Sulfate (Morphine 2 Mg/Ml Vial) 1 - 4 mg IV Q3HP PRN; Protocol PRN Reason: Per Pain Protocol Last Admin: 03/26/21 14:39 Dose: 2 mg Documented by: Morphine Sulfate (Morphine 20 Mg/Ml Oral.Conc) 5 mg PO Q6HP PRN PRN Reason: AIR HUNGER Nystatin (Nystatin Powder Bottle 15gm) 1 dose TOPICAL TIDP PRN PRN Reason: Skin Irritation Ondansetron HCl (Ondansetron 4 Mg/2 Ml Vial) 4 mg IV Q4HP PRN PRN Reason: Nausea And Vomiting Oxycodone HCl (Oxycodone Hcl 5 Mg Tablet) 5 mg PO Q4HP PRN; Protocol PRN Reason: Pain Last Admin: 03/27/21 04:18 Dose: 5 mg Documented by: Pantoprazole Sodium (Pantoprazole 40 Mg Tablet) 40 mg PO QAMAC [facility] Last Admin: 03/26/21 09:08 Dose: 40 mg Documented by: Umeclidinium- Vilanterol [Anoro Ellipta] 62.5-25 Mcg Inhaler 1 dose INH QDAY [facility] Last Admin: 03/26/21 09:09 Dose: 1 dose Documented by: Ammonium Lactate 12 (% Lotion) 1 dose TOPICAL BID [facility] Last Admin: 03/26/21 21:39 Dose: Not Given Documented by: Polyethylene Glycol (Polyethylene Glycol 3350 17 Gm Packet) 17 gm PO DAILYP PRN PRN Reason: Constipation Potassium Chloride (Potassium Chloride 20 Meq Tablet) 40 meq PO UD PRN PRN Reason: Potssium is 3-3.5 Potassium Chloride (Potassium Chloride 20 Meq Tablet) 40 meq PO UD PRN PRN Reason: Potassium < 3 Quetiapine Fumarate (Quetiapine 25 Mg Tablet) 12.5 mg PO HS [facility] Last Admin: 03/26/21 21:36 Dose: 12.5 mg Documented by: Senna (Sennosides 1 Tablet) 2 tab PO DAILYP PRN PRN Reason: Constipation Simethicone (Simethicone 80 Mg Tab.Chew) 160 mg CHEWED BID [facility] Last Admin: 03/26/21 21:36 Dose: 160 mg Documented by: Sodium Chloride (0.9 % Sodium Chloride 10 Ml Syringe) 10 ml IV Q8 [facility] Last Admin: 03/27/21 04:15 Dose: 10 ml Documented by: Torsemide (Torsemide 10 Mg Tablet) 20 mg PO QDAY [facility] Last Admin: 03/26/21 09:17 Dose: 20 mg Documented by: A/P Narrative A/P Narrative: A: *Moderate right hemothorax: s/p 600 ml bloody thoracentesis (03/18) & thora (03/23) of 1400cc bloody *Acute on chronic hypercapnic/hypoxic respiratory failure (4L O2 @home and CPAP): 2/2 above -resolved, on NC this morning *Encephalopathy: 2/2 above -resolved *RAMAKRISHNA/obesity hypoventilation syndrome: On cpap *Morbid obesity *A. fib: On warfarin prior to admit *h/o diastolic CHF: -RV mod-sev dilated, right atrium dilated, mod Pulm HTN *COPD (on 4L @home): *Opiate dependence with chronic LBP: *Depression/anxiety: *Deconditioning/debility: Patient is wheelchair-bound and unable to transfer by self *pressure ulcers *Polypharmcy: P: -still awaiting placement, f/u with Hospice -Continue Toprol (decreased), -nocturnal BiPAP and prn daytime -wound care for decubitus pressure injury -continue home medications except coumadin and spironolactone -pt/ot -CM for placement -ppx: SCD, no chemical d/t hemothorax DNR Time Spent With Patient Time: Total time spent is greater than 50% in coordination of care (as documented) at patient's floor/unit and/or counseling patient: QUALITY Stroke Symptom Onset Unknown: No VTE Deep Vein Thrombosis/Pulmonary Embolism Present on Admission: No
[2021-03-27] MEDS: busPIRone 5 MG TABLET PO SCH ×2 (08:41→20:53)
[2021-03-27] MEDS: SIMETHICONE 80 MG TAB.CHEW CHEWED SCH ×2 (08:41→20:54)
[2021-03-27] MEDS: METOPROLOL SUCCINATE 50 MG TAB.XL.24H PO SCH (08:42)
[2021-03-27] MEDS: DOCUSATE SODIUM 100 MG CAPSULE PO SCH ×2 (08:42→20:52)
[2021-03-27] MEDS: PANTOPRAZOLE 40 MG TABLET PO SCH (08:42)
[2021-03-27] MEDS: ACETAMINOPHEN 500 MG TABLET PO SCH ×3 (08:42→20:54)
[2021-03-27] MEDS: metFORMIN 500 MG TABLET PO SCH ×2 (08:42→17:11)
[2021-03-27] MEDS: FLUoxetine HCL 20 MG CAPSULE PO SCH (08:43)
[2021-03-27] MEDS: Umeclidinium-Vilanterol [Anoro Ellipta] 62.5-25 mcg Inhaler INH SCH (08:43)
[2021-03-27] MEDS: AMMONIUM LACTATE 12% TOPICAL SCH ×2 (08:43→22:14)
[2021-03-27] MEDS: TORSEMIDE 10 MG TABLET PO SCH (08:43)
[2021-03-27] MEDS: IPRATROPIUM/ALBUTEROL 3 ML AMPUL.NEB NEB SCH ×3 (09:24→20:17)
[2021-03-27] MEDS: QUEtiapine 25 MG TABLET PO SCH (20:52)
[2021-03-28] MEDS: 0.9 % SODIUM CHLORIDE 10 ML SYRINGE IV SCH (08:16)
[2021-03-28] MEDS: SIMETHICONE 80 MG TAB.CHEW CHEWED SCH ×2 (08:17→20:57)
[2021-03-28] MEDS: TORSEMIDE 10 MG TABLET PO SCH (08:18)
[2021-03-28] MEDS: ACETAMINOPHEN 500 MG TABLET PO SCH ×3 (08:18→20:57)
[2021-03-28] MEDS: METOPROLOL SUCCINATE 50 MG TAB.XL.24H PO SCH (08:19)
[2021-03-28] MEDS: busPIRone 5 MG TABLET PO SCH ×2 (08:19→20:57)
[2021-03-28] MEDS: FLUoxetine HCL 20 MG CAPSULE PO SCH (08:19)
[2021-03-28] MEDS: PANTOPRAZOLE 40 MG TABLET PO SCH (08:19)
[2021-03-28] MEDS: DOCUSATE SODIUM 100 MG CAPSULE PO SCH ×2 (08:19→20:57)
[2021-03-28] MEDS: metFORMIN 500 MG TABLET PO SCH ×2 (08:19→16:50)
[2021-03-28] MEDS: AMMONIUM LACTATE 12% TOPICAL SCH ×2 (08:22→21:00)
[2021-03-28] MEDS: Umeclidinium-Vilanterol [Anoro Ellipta] 62.5-25 mcg Inhaler INH SCH (08:22)
[2021-03-28] MEDS: IPRATROPIUM/ALBUTEROL 3 ML AMPUL.NEB NEB SCH ×3 (08:52→21:13)
[2021-03-28] MEDS: diphenhydrAMINE 25 MG CAPSULE PO PRN (10:43)
--- NOTE | 2021-03-28 14:35 | Internal Med Progress Note ---
SUBJECTIVE Subjective Patient information: Note initiated : 03/28/21 at 2:20 pm Service Date, if different from initiated Date: [] Patient: James Hyde 70 y/o M admitted on 03/15/21 for Hypoxia. Chief Complaint: [hypoxia] History of present illness: Mr. Hyde is a 70 year old M Patient was found at the nursing facility without his CPAP or oxygen on. His oxygen was 39% and he was altered. EMS was called placed on BiPAP. In the ED is found to have a pH 7.19 with a CO2 of greater than 124. Is continued on BiPAP and improved mentation follow-up ABG improving. Patient denies any current complaints coughing shortness of breath no current chest pain. He chronically wears 4 L of oxygen. *Discussion with about him and he has been a DNR/ comfort care at the facility and she was surprised that the patient was sent to the ED but it sounds like the patient called 911 himself. 03/16 Patient comfortable on BiPAP is been on nasal cannula occasionally and then placed back on. INR decreased some likely not enough for Thora, will discuss with radiology. 03/17 Patient on on nasal cannula. Feeling little better. INR normalized, attempted thoracentesis at bedside was not successful. No new pains or complaints. 03/18-feels about the same as yesterday, radiology thoracentesis drained 600 cc bloody fluid. Hemoglobin dropped 14.3->12.7 03/19-The patient feels ok, hemoglobin trend stable. Respiratory status stable. CT chest/abd/pelvis ordered. 03/20-CT chest shows moderate size hemothorax, discussed with surgery-recommended chest tube. Radiology unable to place chest tube with CT guidance due to body habitus. Discussed transfer with [place] but no beds available. Discussed with [facility]-awaiting call back. [facility] also has not beds but placed patient on waiting list. [facility] later called back-denied transfer recommended a lateral transfer. 03/21-Call out to [facility] in [place]-left message. Still unable to find a bed for higher level of care. Patient stable today, reiterated that he would like to transfer further out, including to [place], if necessary. Discussed with [facility] in [place]-denied transfer patient. 03/22-Hemoglobin trending up, patient stable. Discussed multiple attempts to transfer to higher level of care. 03/23 Patient was on nasal cannula resting comfortable yesterday afternoon. This morning patient requiring BiPAP and desats quickly without it. We will obtain repeat CT chest. *I talked with a physician who is in charge of helping to place patients in the state when the local hospitals have a hard time. I ran the case by him and what was needed. He was concerned about patient's status and that he would likely not do well regardless and was worried about him coming over to the other side o f the [facility] and dying without family present. He asked me to have a goals of care discussion with the patient to see if he really wanted to be that aggressive guarantee for a good outcome is not there. I talked with the patient and he agreed saying he did not want to go over to [place] if it likely is not can be a good outcome. He agreed to hospice was an appropriate choice, which is what he was on before he was admitted. Also talked to the who agreed with hospice comfort care as this was the understanding before he was admitted anyway. Patient will likely go back to facility with hospice care. He did agree to 1 more attempt of thoracentesis to see if that would make any difference. 03/24 Patient felt he was breathing better after the thoracentesis yesterday. He is on nasal cannula currently. Awaiting placement. 03/25 No overnight event or new complaints. On nasal cannula during the day not requiring BiPAP during the day. Still awaiting placement. 03/26 No change. Still waiting for placement emergently was set up for him to discharge back to facility on Sunday but the facility called back today and said they were not able to take due to staffing issues. 03/27 No changes. Patient stable. Still awaiting discharge which will not likely be Sunday given the holiday. 03/28: No change. Patient stable. c/o bilateral lower extremities shooting pain, moderate. Still awaiting discharge which will likely be Thursday 03/29 given the holiday. Constitutional Vitals: Vital Signs Temp Pulse Resp BP Pulse Ox 36.7 C 90 16 111/62 94 03/28/21 11:40 03/28/21 11:40 03/28/21 11:40 03/28/21 11:40 03/28/21 11:40 Period Temp Pulse Resp BP Sys/Aguayo Pulse Ox Last 24 Hr 36.2 C-36.9 C 68-95 16-22 97-111/43-66 90-97 Intake and Output 03/28/21 03/28/21 03/28/21 05:59 13:59 21:59 Intake Total 800 Output Total 1000 Balance -1000 800 Intake & Output: Intake & Output 03/28/21 03/28/21 03/28/21 05:59 13:59 21:59 Intake Total 800 Output Total 1000 Balance -1000 800 Intake: Oral 800 Output: Urine Catheter Amount 1000 Other: Meal Lunch Percent of Meal Consumed 100% Feeding Ability Independent Urine Appearance Clear Urine Color Dark Yellow Stool Size Copious Stool Color Brown Stool Consistency Formed General appearance: cooperative and no acute distress Head Head exam: Present atraumatic and normocephalic Eye Eye exam: Present EOMI and PERRL ENT ENT exam: Present mucous membranes moist, normal exam and normal external ear exam Neck Neck exam: Present normal inspection; Absent lymphadenopathy, tenderness and thyromegaly Respiratory Respiratory exam: Absent accessory muscle use, respiratory distress and wheezes Additional comments: Decreased breath sound in all lung carranza given body habitus Cardiovascular Cardiovascular exam: Absent JVD Additional comments: normal rate irregularly irregular cardiac rhythm GI/Abdominal GI/Abdominal exam: Present normal bowel sounds and soft; Absent organomegaly and tenderness Rectal Rectal exam: Present deferred Extremities Exam Extremities exam: Present full ROM, normal capillary refill and normal inspection; Absent tenderness Neurological Exam Neurological exam: Present alert, CN II-XII intact and oriented X3; Absent motor sensory deficit Psychiatric Psychiatric exam: Present normal affect and normal mood; Absent anxious and depressed Skin Skin exam: Present dry and intact OBJ DATA Labs CBC & Chem 7: 03/23/21 05:44 03/22/21 05:55 Meds: Medications Acetaminophen (Acetaminophen 500 Mg Tablet) 1,000 mg PO TID [facility]; Protocol Last Admin: 03/28/21 08:18 Dose: 1,000 mg Documented by: Acetaminophen (Acetaminophen 325 Mg Tablet) 650 mg PO Q6HP PRN PRN Reason: PAIN/FEVER > 101 Albuterol Sulfate (Albuterol Sulfate 200 Puff Inhaler) 2 puff INH QIDP PRN PRN Reason: Wheezing Albuterol/Ipratropium (Ipratropium/Albuterol 3 Ml Ampul.Neb) 3 ml NEB TID [facility] Last Admin: 03/28/21 08:52 Dose: 3 ml Documented by: Albuterol/Ipratropium (Ipratropium/Albuterol 3 Ml Ampul.Neb) 3 ml NEB Q4HP PRN PRN Reason: Shortness Of Breath Last Admin: 03/28/21 04:25 Dose: 3 ml Documented by: Buspirone HCl (Buspirone 5 Mg Tablet) 10 mg PO BID [facility] Last Admin: 03/28/21 08:19 Dose: 10 mg Documented by: Calcium Carbonate/Glycine (Calcium Carbonate 500 Mg Tab.Chew) 500 mg PO QDAY PRN PRN Reason: Indigestion Last Admin: 03/27/21 18:51 Dose: 500 mg Documented by: Diphenhydramine HCl (Diphenhydramine 25 Mg Capsule) 25 mg PO Q6HP PRN PRN Reason: Allergic Symptoms Last Admin: 03/28/21 10:43 Dose: 25 mg Documented by: Docusate Sodium (Docusate Sodium 100 Mg Capsule) 100 mg PO BID [facility] Last Admin: 03/28/21 08:19 Dose: 100 mg Documented by: Fluoxetine HCl (Fluoxetine Hcl 20 Mg Capsule) 20 mg PO DAILY [facility] Last Admin: 03/28/21 08:19 Dose: 20 mg Documented by: Glucose Oxid/Lactoperoxid/Muramidas (Lactoperoxi/Gluc Oxid/Pot Thio 1 Each Gel..Ea.) 1 each TOPICAL BID PRN PRN Reason: Dry Mouth Magnesium Sulfate (Magnesium Sulfate) 2 gm in 50 mls @ 50 mls/hr IV UD PRN PRN Reason: Magnesium </= 1.6 Potassium Chloride 40 meq/ (Dextrose) 520 mls @ 130 mls/hr IV UD PRN PRN Reason: Potassium < 3 Lactulose (Lactulose 20 Gm/30 Ml Oral.Ibeth) 20 gm PO DAILYP PRN PRN Reason: Constipation Last Admin: 03/26/21 09:08 Dose: 20 gm Documented by: Loperamide HCl (Loperamide 2 Mg Capsule) 2 mg PO Q4HP PRN PRN Reason: Diarrhea Lorazepam (Lorazepam 0.5 Mg Tablet) 0.5 mg PO Q6HP PRN PRN Reason: Agitation Last Admin: 03/26/21 22:44 Dose: 0.5 mg Documented by: Metformin HCl (Metformin 500 Mg Tablet) 500 mg PO BIDCC [facility] Last Admin: 03/28/21 08:19 Dose: 500 mg Documented by: Metoprolol Succinate (Metoprolol Succinate 50 Mg Tab.Xl.24h) 25 mg PO QDAY [facility] Last Admin: 03/28/21 08:19 Dose: 25 mg Documented by: Metoprolol Tartrate (Metoprolol Tartrate 5 Mg/5 Ml Vial) 5 mg IV Q2HP PRN PRN Reason: Tachyarrhythmias HR>110 Morphine Sulfate (Morphine 2 Mg/Ml Vial) 1 - 4 mg IV Q3HP PRN; Protocol PRN Reason: Per Pain Protocol Last Admin: 03/26/21 14:39 Dose: 2 mg Documented by: Morphine Sulfate (Morphine 20 Mg/Ml Oral.Conc) 5 mg PO Q6HP PRN PRN Reason: AIR HUNGER Nystatin (Nystatin Powder Bottle 15gm) 1 dose TOPICAL TIDP PRN PRN Reason: Skin Irritation Ondansetron HCl (Ondansetron 4 Mg/2 Ml Vial) 4 mg IV Q4HP PRN PRN Reason: Nausea And Vomiting Oxycodone HCl (Oxycodone Hcl 5 Mg Tablet) 5 mg PO Q4HP PRN; Protocol PRN Reason: Pain Last Admin: 03/27/21 20:53 Dose: 5 mg Documented by: Pantoprazole Sodium (Pantoprazole 40 Mg Tablet) 40 mg PO QAMAC [facility] Last Admin: 03/28/21 08:19 Dose: 40 mg Documented by: Umeclidinium- Vilanterol [Anoro Ellipta] 62.5-25 Mcg Inhaler 1 dose INH QDAY [facility] Last Admin: 03/28/21 08:22 Dose: 1 dose Documented by: Ammonium Lactate 12 (% Lotion) 1 dose TOPICAL BID [facility] Last Admin: 03/28/21 08:22 Dose: Not Given Documented by: Polyethylene Glycol (Polyethylene Glycol 3350 17 Gm Packet) 17 gm PO DAILYP PRN PRN Reason: Constipation Last Admin: 03/28/21 08:28 Dose: 17 gm Documented by: Potassium Chloride (Potassium Chloride 20 Meq Tablet) 40 meq PO UD PRN PRN Reason: Potssium is 3-3.5 Potassium Chloride (Potassium Chloride 20 Meq Tablet) 40 meq PO UD PRN PRN Reason: Potassium < 3 Quetiapine Fumarate (Quetiapine 25 Mg Tablet) 12.5 mg PO HS [facility] Last Admin: 03/27/21 20:52 Dose: 12.5 mg Documented by: Senna (Sennosides 1 Tablet) 2 tab PO DAILYP PRN PRN Reason: Constipation Simethicone (Simethicone 80 Mg Tab.Chew) 160 mg CHEWED BID [facility] Last Admin: 03/28/21 08:17 Dose: 160 mg Documented by: Torsemide (Torsemide 10 Mg Tablet) 20 mg PO QDAY [facility] Last Admin: 03/28/21 08:18 Dose: 20 mg Documented by: A/P Assessment and plan (1) Acute and chronic respiratory failure ([id number]): Status: Acute (2) Morbid obesity due to excess calories: Status: Acute (3) Hemothorax, right: Status: Acute (4) Atrial fibrillation: Status: Acute (5) COPD (chronic obstructive pulmonary disease): Status: Acute (6) On home oxygen therapy: Status: Acute (7) Neuropathic pain: Status: Acute (8) Congestive heart failure: Status: Acute (9) RAMAKRISHNA on CPAP: Status: Acute (10) T2DM (type 2 diabetes mellitus): Status: Acute Narrative A/P Narrative: 1. Moderate right hemothorax: s/p two episodes of thoracentesis (600cc on 03/18 and 1400cc on 03/23) Not a candidate for chest tube or pleurodesis Warfarin contraindicated Pending Hospice/comfort care placement Supplemental oxygen via nasal cannula titrate to achieve spo2 88-92% given COPD/RAMAKRISHNA 2. COPD on home oxygen therapy: on 4L/min home oxygen therapy, continue DuoNEB NEB TID scheduled Ellipta 3. ARMAKRISHNA: CPAP at night while sleeping 4.h/o diastolic CHF: Toprol XL Torsemide 5. Depression with anxiety: Buspirone Prozac Seroquel 6. Neuropathic pain: Gabapentin 300mg PO TID Morphine (both PO and IV) PRN severe pain Oxycodone PRN moderate pain 7. T2DM: Continue Metformin 8. Atrial fibrillation: Toprol XL for rate control Warfarin contraindicated given hemothorax GI ppx: oral PPI DVT ppx: SCDs Code status: DNI DNR Prognosis: poor Disposition: inpatient med surg; pending SNF hospice placement Time Spent With Patient Time: Total time spent is greater than 50% in coordination of care (as doc umented) at patient's floor/unit and/or counseling patient: Total time spent with greater than 50% in coordination of care (as documented) at patient's floor/unit and/or counseling patient:: 25 - 35 minutes QUALITY Stroke Symptom Onset Unknown: No VTE Deep Vein Thrombosis/Pulmonary Embolism Present on Admission: No
[2021-03-28] MEDS: GABAPENTIN 300 MG CAPSULE PO SCH ×2 (15:40→20:56)
[2021-03-28] MEDS: QUEtiapine 25 MG TABLET PO SCH (20:56)
[2021-03-29] MEDS: busPIRone 5 MG TABLET PO SCH (07:55)
[2021-03-29] MEDS: metFORMIN 500 MG TABLET PO SCH (07:56)
[2021-03-29] MEDS: DOCUSATE SODIUM 100 MG CAPSULE PO SCH (07:56)
[2021-03-29] MEDS: FLUoxetine HCL 20 MG CAPSULE PO SCH (07:56)
[2021-03-29] MEDS: Umeclidinium-Vilanterol [Anoro Ellipta] 62.5-25 mcg Inhaler INH SCH (07:56)
[2021-03-29] MEDS: GABAPENTIN 300 MG CAPSULE PO SCH (07:56)
[2021-03-29] MEDS: ACETAMINOPHEN 500 MG TABLET PO SCH (07:56)
[2021-03-29] MEDS: PANTOPRAZOLE 40 MG TABLET PO SCH (07:56)
[2021-03-29] MEDS: SIMETHICONE 80 MG TAB.CHEW CHEWED SCH (07:56)
[2021-03-29] MEDS: METOPROLOL SUCCINATE 50 MG TAB.XL.24H PO SCH (07:57)
[2021-03-29] MEDS: TORSEMIDE 10 MG TABLET PO SCH (07:57)
[2021-03-29] MEDS: AMMONIUM LACTATE 12% TOPICAL SCH (07:57)
--- NOTE | 2021-03-29 08:42 | Discharge Summary ---
Discharge Provider Provider Patient information: Note initiated : 03/29/21 at 8:39 am Service Date, if different from initiated Date: [] Patient: James Hyde 70 y/o M admitted on 03/15/21 for Hypoxia. Chief Complaint: [] History of present illness: Mr. Hyde is a 70 year old M Patient was found at the nursing facility without his CPAP or oxygen on. His oxygen was 39% and he was altered. EMS was called placed on BiPAP. In the ED is found to have a pH 7.19 with a CO2 of greater than 124. Is continued on BiPAP and improved mentation follow-up ABG improving. Patient denies any current complaints coughing shortness of breath no current chest pain. He chronically wears 4 L of oxygen. Date of admission: 03/15/21 08:33 Discharge date: 03/29/21 Primary care physician: Physician Not On Staff Consults: 03/15/21 Consult to Physician [CONS] Stat Comment: Consulting Provider: Dave Mcgowan Reason For Exam: Physician to Consult Discharge Meds Discharge Medications Home Medications Anoro Ellipta 1 inh INHALATION QDAY 03/15/21 [History Confirmed 03/16/21 Last Taken 03/14/21] calcium carbonate [Antacid (calcium carbonate)] 500 mg PO PRN PRN 03/15/21 [History Confirmed 03/16/21 Last Taken 03/12/21 07:52] fluoxetine 20 mg PO QDAY 03/15/21 [History Confirmed 03/16/21 Last Taken 03/14/21] omeprazole 20 mg PO DAILY 03/15/21 [History Confirmed 03/16/21 Last Taken 03/14/21] simethicone 160 mg PO BID 03/15/21 [History Confirmed 03/16/21 Last Taken 03/14/21] Biotene PBF 30 ml MUCOUS MEMBRANE BID 03/16/21 [History Confirmed 03/16/21 Last Taken 03/14/21] acetaminophen 1,000 mg PO TID 03/16/21 [History Confirmed 03/16/21 Last Taken 03/14/21 20:00] albuterol sulfate [Proventil HFA] 2 puff INHALATION QID PRN 03/16/21 [History Confirmed 03/16/21 Last Taken Unknown] ammonium lactate 1 applic TOPICAL BID 03/16/21 [History Confirmed 03/16/21 Last Taken 03/14/21 15:00] buspirone 10 mg PO BID 03/16/21 [History Confirmed 03/16/21 Last Taken 03/14/21] fluticasone propionate 1 spray INTRANASAL QDAY 03/16/21 [History Confirmed 03/16/21 Last Taken 03/14/21] ipratropium-albuterol 3 ml INHALATION TID 03/16/21 [History Confirmed 03/16/21 Last Taken 03/14/21 20:00] metformin 500 mg PO BID 03/16/21 [History Confirmed 03/16/21 Last Taken 03/14/21] quetiapine 12.5 mg PO BID 03/16/21 [History Confirmed 03/16/21 Last Taken 03/14/21] torsemide 20 mg PO QDAY 03/16/21 [History Confirmed 03/16/21 Last Taken 03/14/21] lorazepam 0.5 mg PO Q6HP PRN #10 tab 03/26/21 [Rx Last Taken Unknown] metoprolol succinate 25 mg PO QDAY #1 tab 03/26/21 [Rx Last Taken Unknown] oxycodone 5 mg PO Q4H PRN #10 tab 03/26/21 [Rx Last Taken Unknown] COURSE Hospital Course Hospital course: History of present illness: Mr. Hyde is a 70 year old M Patient was found at the nursing facility without his CPAP or oxygen on. His oxygen was 39% and he was altered. EMS was called placed on BiPAP. In the ED is found to have a pH 7.19 with a CO2 of greater than 124. Is continued on BiPAP and improved mentation follow-up ABG improving. Patient denies any current complaints coughing shortness of breath no current chest pain. He chronically wears 4 L of oxygen. *Discussion with about him and he has been a DNR/ comfort care at the facility and she was surprised that the patient was sent to the ED but it sounds like the patient called 911 himself. 03/16 Patient comfortable on BiPAP is been on nasal cannula occasionally and then placed back on. INR decreased some likely not enough for Thora, will discuss with radiology. 03/17 Patient on on nasal cannula. Feeling little better. INR normalized, attempted thoracentesis at bedside was not successful. No new pains or complaints. 03/18-feels about the same as yesterday, radiology thoracentesis drained 600 cc bloody fluid. Hemoglobin dropped 14.3->12.7 03/19-The patient feels ok, hemoglobin trend stable. Respiratory status stable. CT chest/abd/pelvis ordered. 03/20-CT chest shows moderate size hemothorax, discussed with surgery-recommended chest tube. Radiology unable to place chest tube with CT guidance due to body habitus. Discussed transfer with [facility] but no beds available. Discussed with [facility]-awaiting call back. [facility] also has not beds but placed patient on waiting list. [facility] later called back-denied transfer recommended a lateral transfer. 03/21-Call out to [facility] in [place]-left message. Still unable to find a bed for higher level of care. Patient stable today, reiterated that he would like to transfer further out, including to [place], if necessary. Discussed with [facility] in [place]-denied transfer patient. 03/22-Hemoglobin trending up, patient stable. Discussed multiple attempts to transfer to higher level of care. 03/23 Patient was on nasal cannula resting comfortable yesterday afternoon. This morning patient requiring BiPAP and desats quickly without it. We will obtain repeat CT chest. *I talked with a physician who is in charge of helping to place patients in the state when the local hospitals have a hard time. I ran the case by him and what was needed. He was concerned about patient's status and that he would likely not do well regardless and was worried about him coming over to the other side of the [facility] and dying without family present. He asked me to have a goals of care discussion with the patient to see if he really wanted to be that aggressive guarantee for a good outcome is not there. I talked with the patient and he agreed saying he did not want to go over to [place] if it likely is not can be a good outcome. He agreed to hospice was an appropriate choice, which is what he was on before he was admitted. Also talked to the who agreed with hospice comfort care as this was the understanding before he was admitted anyway. Patient will likely go back to facility with hospice care. He did agree to 1 more attempt of thoracentesis to see if that would make any difference. 03/24 Patient felt he was breathing better after the thoracentesis yesterday. He is on nasal cannula currently. Awaiting placement. 03/25 No overnight event or new complaints. On nasal cannula during the day not requiring BiPAP during the day. Still awaiting placement. 03/26 No change. Still waiting for placement emergently was set up for him to discharge back to facility on Sunday but the facility called back today and said they were not able to take due to staffing issues. 03/27 No changes. Patient stable. Still awaiting discharge which will not likely be Sunday given the . 03/28: No change. Patient stable. c/o bilateral lower extremities shooting pain, moderate. Still awaiting discharge which will likely be Thursday 03/29 given the . 03/29: clinically ready, accepted by SNF. Discharge diagnosis: Recurrent hemothorax Time Spent with Patient Time attestation: Total time spent providing and/or coordinating discharge services: Time spent: Less than 30 minutes EXAM Constitutional Vitals: Temp Pulse Resp BP Pulse Ox 35.7 C L 75 18 91/58 98 03/29/21 07:08 03/29/21 07:08 03/29/21 07:08 03/29/21 07:08 03/29/21 07:08 General appearance: cooperative and no acute distress Head Head exam: Present atraumatic and normocephalic Eye Eye exam: Present EOMI and PERRL ENT ENT exam: Present mucous membranes moist, normal exam and normal external ear exam Neck Neck exam: Present normal inspection; Absent lymphadenopathy, tenderness and thyromegaly Respiratory Respiratory exam: Absent accessory muscle use, respiratory distress and wheezes Cardiovascular Cardiovascular exam: Present normal rate and rhythm; Absent JVD GI/Abdominal GI/Abdominal exam: Present normal bowel sounds and soft; Absent organomegaly and tenderness Additional comments: Obese abdomen Rectal Rectal exam: Present deferred Extremities Exam Extremities exam: Present full ROM, normal capillary refill and normal in spection; Absent tenderness Neurological Exam Neurological exam: Present alert, CN II-XII intact and oriented X3; Absent motor sensory deficit Psychiatric Psychiatric exam: Present normal affect and normal mood; Absent anxious and depressed Skin Skin exam: Present dry and intact Discharge Plan Patient/Caregiver Discharge Instructions Activity: increase activity as tolerated Diet: Regular Diet Instructions: Thoracentesis (DC) Activity Restrictions/Additional Instructions: Resume home diet as tolerated. Take all meals up in chair sitting at 90 degrees. Continue fall precautions. Continue aggressive bowel regimen to prevent constipation. Take all medication as directed. This discharge packet is provided to you to help keep you informed about your care. We want to ensure you get everything you need when you go home. You will also be receiving a call from us in a few days to follow up with you and see how you are doing since your discharge. This gives us a chance to listen to any concerns you maybe experiencing since you were discharged or any additional needs you may have, as well as providing us feedback on your care experience. We strive to always provide excellent care and thank you for your feedback and for choosing [facility]. Prescriptions: Continued fluoxetine 20 mg Tablet 20 mg PO QDAY RF: 0 calcium carbonate [Antacid (calcium carbonate)] 200 mg calcium (500 mg) Tablet,Chewable 500 mg PO PRN PRN (Reason: Indigestion) RF: 0 Anoro Ellipta 62.5-25 mcg/actuation Blister With Device 1 inh INHALATION QDAY RF: 0 omeprazole 20 mg Capsule,Delayed Release(Dr/Ec) 20 mg PO DAILY RF: 0 simethicone 80 mg Tablet 160 mg PO BID RF: 0 fluticasone propionate 50 mcg/actuation [place],Suspension 1 spray INTRANASAL QDAY RF: 0 torsemide 20 mg Tablet 20 mg PO QDAY RF: 0 Biotene PBF Mouthwash 30 ml MUCOUS MEMBRANE BID RF: 0 metformin 500 mg Tablet 500 mg PO BID RF: 0 buspirone 10 mg Tablet 10 mg PO BID RF: 0 quetiapine 25 mg Tablet 12.5 mg PO BID RF: 0 acetaminophen 500 mg Tablet 1,000 mg PO TID RF: 0 ipratropium-albuterol 0.5 mg-3 mg(2.5 mg base)/3 mL Solution For Nebulization 3 ml INHALATION TID RF: 0 albuterol sulfate [Proventil HFA] 90 mcg/actuation Hfa Aerosol Inhaler 2 puff INHALATION QID PRN (Reason: Wheezing) RF: 0 ammonium lactate 12 % Lotion 1 applic TOPICAL BID RF: 0 lorazepam 0.5 mg Tablet 0.5 mg PO Q6HP PRN (Reason: Agitation) Qty: 10 RF: 0 oxycodone 5 mg Tablet 5 mg PO Q4H PRN (Reason: Pain) Qty: 10 RF: 0 Changed metoprolol succinate 50 mg Tablet Extended Release 24 Hr 25 mg PO QDAY Qty: 1 RF: 0 Discontinued warfarin 2 mg Tablet 2 mg PO SA RF: 0 warfarin 3 mg Tablet See Rx Instructions .ROUTE .COMPLEX RF: 0 spironolactone 25 mg Tablet 25 mg PO BID RF: 0 morphine concentrate 20 mg/mL Syringe 5 mg SUBLINGUAL Q6H PRN (Reason: other) RF: 0 Follow Up Plan Follow up with: Not On Staff,Physician [Primary Care Provider] - Patient Disposition: Xfer SNF Prognosis: Undetermined Rehab Potential: Undetermined I certify that the patient requires SNF services: Yes Overall status at discharge: patient is progressing back to baseline Discharge Orders: Discharge Order (Routine); Ordered 03/29/21 Ordered By: Cassius NEVILLE VTE Deep Vein Thrombosis/Pulmonary Embolism Present on Admission: No
[2021-03-29] MEDS: IPRATROPIUM/ALBUTEROL 3 ML AMPUL.NEB NEB SCH (08:51)
[2021-03-29] MEDS: diphenhydrAMINE 25 MG CAPSULE PO PRN (10:46)
== END 2021-03-29 11:45 | DRG 186 ==
LOC: ED 03:14 → ICU 08:33 → MEDSUR 03-25 14:30
PROVIDERS: ADMIT Internal Medicine; ATTEND Internal Medicine

== ENCOUNTER 2021-09-04 23:33 | Inpatient (IN) ==
[2021-09-04] MEDS ORDERED: IOPAMIDOL 100 ML BOTTLE IV ONE (23:34)
[2021-09-04] MEDS ORDERED: ONDANSETRON 4 MG/2 ML VIAL IV ONE (23:35)
[2021-09-04] MEDS ORDERED: 0.9 % SODIUM CHLORIDE 1,000 ML IV ONE (23:35)
--- NOTE | 2021-09-04 23:39 | Emergency Department Note ---
HPI General Chief complaint: Nausea/Vomiting/Diarrhea Stated complaint: Vomiting, ABD pain, No BM Time Seen by Provider: 09/04/21 23:34 Mode of arrival: EMS Limitations: no limitations History of Present Illness HPI Narrative: Narrative: Patient is a 71-year-old male who presents with a chief complaint of nausea and vomiting for 3 days. The patient reports he is unable to stop vomiting also reports he has not had a bowel movement in 3 days. He also reports diffuse abdominal cramping. Denies fevers. He comes from an assisted living facility. He is a DNR comfort care. Patient denies any previous abdominal surgery. Related Data Home Medications Medication Instructions Recorded Confirmed Anoro Ellipta 1 inh INHALATION QDAY 03/15/21 09/05/21 calcium carbonate [Antacid 500 mg PO Q4HP PRN 03/15/21 09/05/21 (calcium carbonate)] fluoxetine 20 mg PO QDAY 03/15/21 09/05/21 simethicone 160 mg PO BID 03/15/21 09/05/21 Biotene PBF 30 ml MUCOUS MEMBRANE BID 03/16/21 03/16/21 acetaminophen 1,000 mg PO TID 03/16/21 09/04/21 albuterol sulfate [Proventil HFA] 2 puff INHALATION Q6HP PRN 03/16/21 09/05/21 fluticasone propionate 1 spray INTRANASAL QDAY 03/16/21 09/05/21 ipratropium-albuterol 3 ml INHALATION Q4HP PRN 03/16/21 09/05/21 metformin 500 mg PO QDAY 03/16/21 09/05/21 torsemide 20 mg PO QDAY 03/16/21 09/05/21 apixaban 5 mg PO BID 09/04/21 09/05/21 bisacodyl [Dulcolax (bisacodyl)] 10 mg MD QDAY PRN 09/04/21 09/05/21 diphenhydramine HCl [Allergy 25 mg PO QHS PRN 09/04/21 09/05/21 (diphenhydramine)] docusate sodium 100 mg PO BID 09/04/21 09/05/21 famotidine 20 mg PO QDAY 09/04/21 09/05/21 glucagon HCl [Glucagon (HCl) 1 mg SUBCUT Q15M PRN 09/04/21 09/05/21 Emergency Kit] glucos sul [id number]-C-Mn 1 cap PO BID 09/04/21 09/05/21 [Glucosamine Chondroitin] sodium phosphates [Fleet Enema] 118 ml MD PRN PRN 09/04/21 09/05/21 lorazepam 0.5 mg PO Q8HP PRN 09/05/21 09/05/21 magnesium hydroxide [Milk of 400 mg PO 3XW PRN 09/05/21 09/05/21 Magnesia] ondansetron 4 mg PO Q6H PRN 09/05/21 09/05/21 oxycodone 10 mg PO Q4H 09/05/21 09/05/21 potassium chloride 10 meq PO QDAY 09/05/21 09/05/21 Previous Rx's Medication Instructions Recorded metoprolol succinate 25 mg PO QDAY #1 tab 03/26/21 Allergies Allergy/AdvReac Type Severity Reaction Status Date / Time Amoxicillin [From Augmentin] Allergy Unknown Unknown Verified 09/04/21 23:36 clavulanic acid Allergy Unknown Unknown Verified 09/04/21 23:36 [From Augmentin] doxycycline Allergy Unknown Unknown Verified 09/04/21 23:36 NSAIDS (Non-Steroidal Allergy Unknown Unknown Verified 09/04/21 23:36 Anti-Inflamma Penicillins Allergy Unknown Unknown Verified 09/04/21 23:36 Review of Systems ROS ROS Narrative: Narrative: All systems ED: reviewed and negative except as stated. PFSH Narrative Patient History Narrative: Narrative: Medical/Surgical/Family History All Active Problems (Updated 09/05/21 @ 01:47 by Paddy Keller DO) Vomiting (Acute) Dehydration (Acute) Cholecystitis (Acute) Cholelithiasis (Acute) T2DM (type 2 diabetes mellitus) (Acute) RAMAKRISHNA on CPAP (Acute) Neuropathic pain (Acute) On home oxygen therapy (Acute) COPD (chronic obstructive pulmonary disease) (Acute) Atrial fibrillation (Acute) Hemothorax, right (Acute) Morbid obesity due to excess calories (Acute) Acute and chronic respiratory failure ([id number]) (Acute) Congestive heart failure (Acute) Social History Smoking Status: Unknown if ever smoked Exam Narrative Narrative: Narrative: General Limitations: no limitations General appearance: Present alert and other (Ill-appearing) Head Head: Present atraumatic and normocephalic Eye Eye: Present normal appearance, PERRL and EOMI ENT ENT: Present normal exam, normal oropharynx and mucous membranes moist Neck Neck: Present normal inspection, full ROM and trachea midline Chest Chest: Present normal inspection and symmetric chest wall rise Respiratory Respiratory: Present normal lung sounds bilaterally Cardiovascular Cardiovascular: Present regular rate and normal rhythm Adbominal Abdominal: Present soft, distention, tenderness, guarding, rebound and other (Obese); Absent pulsatile mass Extremities Extremities: Present normal inspection and full ROM; Absent tenderness Back Back: Present normal inspection and full ROM; Absent tenderness Neurological Neurological: Present alert, oriented X3, CN II-XII intact, normal gait, motor sensory deficit and reflexes normal Psychiatric Psychiatric: Present normal affect Skin Skin: Present warm (WNL); Absent rash Course Course Course Narrative: EKG shows no STEMI. CT scan the abdomen and pelvis shows pleural effusions, cholelithiasis, gallbladder wall thickening, pericholecystic stranding, cholecystitis. Labs show leukocytosis, 2 g of IV Rocephin were given. Also noted to have elevated transaminases and bilirubin. I consulted the general surgeon Dr. Carr who is agreed to evaluate this patient for cholecystitis. I spoke with the hospitalist Dr. Mcgowan who has graciously agreed to admit this patient. Basic facilitated admission orders placed. Vital Signs Vital signs: Vital Signs Temperature 97.7 F 09/04/21 23:33 Pulse Rate 123 H 09/04/21 23:33 Respiratory Rate 16 09/04/21 23:33 Blood Pressure 82/63 09/04/21 23:33 Pulse Oximetry (%) 96 09/04/21 23:33 Temperature 96.9 F L 09/05/21 04:00 Pulse Rate 67 09/05/21 04:00 Respiratory Rate 20 09/05/21 04:00 Blood Pressure 87/59 09/05/21 04:00 Pulse Oximetry (%) 98 09/05/21 04:00 [facility] Narrative Medical decision making narrative: Narrative: Lab Data Result diagrams: 09/04/21 23:45 09/04/21 23:45 Labs: Lab Results 09/04/21 09/04/21 09/04/21 Range/Units 23:45 23:45 23:45 WBC 19.5 H (4.5-11.0) K/mcL RBC 4.10 L (4.63-6.08) M/mcL Hgb 12.6 L (13.7-17.5) g/dL Hct 39.0 L (40.1-51.0) % POC Hct 41 (41-55) % MCV 95.1 (80.0-100.0) fL MCH 30.7 (26.0-34.0) pg MCHC 32.3 (31.0-36.0) g/dL RDW 14.1 (11.5-14.5) % Plt Count 242 (140-440) K/mcL MPV 10.5 H (7.4-10.4) fL Neut % (Auto) 92.8 H (38.0-78.0) % Lymph % (Auto) 1.6 L (15.5-49.0) % [place] % (Auto) 5.4 (1.0-12.0) % Eos % (Auto) 0 (0.0-7.0) % Baso % (Auto) 0.2 (0.0-2.0) % Lymph # (Auto) 0.32 L (1.50-4.80) K/mcL [place] # (Auto) 1.06 H (0.10-0.90) K/mcL Eos # (Auto) 0 (0.00-0.70) K/mcL Baso # (Auto) 0.03 (0.00-0.30) K/mcL Absolute Neutrophils 18.08 H (1.80-8.00) K/mcL Differential Comment PT (11.9-14.5) sec INR (0.9-1.1) VBG Lactic Acid 2.3 H (0.5-2.0) mmol/L POC Sodium 134 (133-145) mEq/L Sodium 134 (133-145) mmol/L POC Potassium 4.1 (3.3-5.1) mEql/L Potassium 4.0 (3.3-5.1) mmol/L POC Chloride 94 L (96-108) mEq/L Chloride 93 L (96-108) mmol/L Carbon Dioxide 26 (22-30) mmol/L POC Total CO2 28 (22-30) mmol/L Anion Gap 15.0 (8.0-16.0) POC BUN 19 (6-20) mg/dL BUN 14 (8-23) mg/dL Creatinine 1.3 H (0.7-1.2) mg/dL POC Creatinine 1.4 H (0.6-1.2) mg/dL GFR Calculation 54 Glucose 120 H (70-105) mg/dL POC Glucose 127 H (70-105) mg/dL Calcium 9.7 (8.6-10.4) mg/dL POC WB Ioniz Calcium 1.07 L (1.16-1.32) mmEq/L Total Bilirubin 4.8 H (0.1-1.0) mg/dL AST 110 H (<40) U/L ALT 68 H (<40) U/L Alkaline Phosphatase 357 H (39-117) U/L Troponin T (<0.03) ng/mL NT-Pro-B Natriuret Pep 8058.0 H (<125.0) pg/mL Total Protein 8.1 (5.9-8.4) gm/dL Albumin 3.2 (3.2-5.2) gm/dL Globulin 4.9 H (2.2-3.7) gm/dL Albumin/Globulin Ratio 0.7 L (1.0-2.3) Lipase 8 (7-60) U/L 09/04/21 09/04/21 Range/Units 23:45 23:45 WBC (4.5-11.0) K/mcL RBC (4.63-6.08) M/mcL Hgb (13.7-17.5) g/dL Hct (40.1-51.0) % POC Hct (41-55) % MCV (80.0-100.0) fL MCH (26.0-34.0) pg MCHC (31.0-36.0) g/dL RDW (11.5-14.5) % Plt Count (140-440) K/mcL MPV (7.4-10.4) fL Neut % (Auto) (38.0-78.0) % Lymph % (Auto) (15.5-49.0) % [place] % (Auto) (1.0-12.0) % Eos % (Auto) (0.0-7.0) % Baso % (Auto) (0.0-2.0) % Lymph # (Auto) (1.50-4.80) K/mcL [place] # (Auto) (0.10-0.90) K/mcL Eos # (Auto) (0.00-0.70) K/mcL Baso # (Auto) (0.00-0.30) K/mcL Absolute Neutrophils (1.80-8.00) K/mcL Differential Comment PT 17.5 H (11.9-14.5) sec INR 1.4 H (0.9-1.1) VBG Lactic Acid (0.5-2.0) mmol/L POC Sodium (133-145) mEq/L Sodium (133-145) mmol/L POC Potassium (3.3-5.1) mEql/L Potassium (3.3-5.1) mmol/L POC Chloride (96-108) mEq/L Chloride (96-108) mmol/L Carbon Dioxide (22-30) mmol/L POC Total CO2 (22-30) mmol/L Anion Gap (8.0-16.0) POC BUN (6-20) mg/dL BUN (8-23) mg/dL Creatinine (0.7-1.2) mg/dL POC Creatinine (0.6-1.2) mg/dL GFR Calculation Glucose (70-105) mg/dL POC Glucose (70-105) mg/dL Calcium (8.6-10.4) mg/dL POC WB Ioniz Calcium (1.16-1.32) mmEq/L Total Bilirubin (0.1-1.0) mg/dL AST (<40) U/L ALT (<40) U/L Alkaline Phosphatase (39-117) U/L Troponin T 0.02 (<0.03) ng/mL NT-Pro-B Natriuret Pep (<125.0) pg/mL Total Protein (5.9-8.4) gm/dL Albumin (3.2-5.2) gm/dL Globulin (2.2-3.7) gm/dL Albumin/Globulin Ratio (1.0-2.3) Lipase (7-60) U/L ED POC Tests ED POC Tests: KATINA - SARS Antigen Negative Discharge Plan Patient/Caregiver Discharge Instructions Pt seen by GRAVURE PRINTING MACHINIST/PA only: No Clinical Impression: Dehydration, Cholecystitis Vomiting Qualifiers: Vomiting type: unspecified Vomiting Intractability: unspecified Nausea presence: unspecified Qualified Code(s): R11.10 - Vomiting, unspecified Cholelithiasis Qualifiers: Cholelithiasis location: other site Biliary obstruction: without biliary obstruction Qualified Code(s): K80.80 - Other cholelithiasis without obstruction Patient Disposition: Xfer As Inpt ([facility]) Condition: Serious Discharge Date/Time: 09/05/21 02:21 Discharge Location: [facility]
[2021-09-05] LABS: POC Blood Urea Nitrogen 19 mg/dL (6-20); POC CO2 28 mmol/L (22-30); POC Calcium, Ionized 1.07 mmEq/L (1.16-1.32); POC Chloride 94 mEq/L (96-108); POC Creatinine 1.4 mg/dL (0.6-1.2); POC Glucose, Random 127 mg/dL (70-105); POC Hematocrit 41 % (41-55); POC Potassium 4.1 mEql/L (3.3-5.1); POC Sodium 134 mEq/L (133-145)
[2021-09-05] MEDS ORDERED: 0.9 % SODIUM CHLORIDE 1,000 ML IV ONE (00:28)
[2021-09-05] MEDS ORDERED: cefTRIAXone 1 GM VIAL IV ONE ×2 (00:44→01:52)
[2021-09-05 01:00] LABS: Basophils # (Auto) 0.03 K/mcL (0.00-0.30); Basophils % (Auto) 0.2 % (0.0-2.0); Eosinophils # (Auto) 0 K/mcL (0.00-0.70); Eosinophils % (Auto) 0 % (0.0-7.0); Hemoglobin 12.6 g/dL (13.7-17.5); Lymphocytes # (Auto) 0.32 K/mcL (1.50-4.80); Lymphocytes % (Auto) 1.6 % (15.5-49.0); Mean Cell Volume 95.1 fL (80.0-100.0); Mean Corpuscular HGB Conc 32.3 g/dL (31.0-36.0); Mean Platelet Volume 10.5 fL (7.4-10.4); Monocytes # (Auto) 1.06 K/mcL (0.10-0.90); Monocytes % (Auto) 5.4 % (1.0-12.0); Neutrophils % (Auto) 92.8 % (38.0-78.0); Platelet Count 242 K/mcL (140-440); Red Cell Distribution Width 14.1 % (11.5-14.5); WBC 19.5 K/mcL (4.5-11.0)
[2021-09-05 01:14] LABS: INR 1.4 (0.9-1.1); Prothrombin Time 17.5 sec (11.9-14.5)
[2021-09-05 01:17] LABS: ALT/SGPT 68 U/L (<40); AST/SGOT 110 U/L (<40); Albumin 3.2 gm/dL (3.2-5.2); Albumin/Globulin Ratio 0.7 (1.0-2.3); Alkaline Phosphatase 357 U/L (39-117); Bilirubin,Total 4.8 mg/dL (0.1-1.0); Blood Urea Nitrogen 14 mg/dL (8-23); Calcium 9.7 mg/dL (8.6-10.4); Carbon Dioxide 26 mmol/L (22-30); Chloride 93 mmol/L (96-108); Globulin 4.9 gm/dL (2.2-3.7); Glomerular Filtration Rate 54; Glucose 120 mg/dL (70-105)
[2021-09-05] MEDS ORDERED: PROMETHAZINE 25 MG/ML VIAL IV ONE (01:23)
[2021-09-05] MEDS ORDERED: ONDANSETRON 4 MG/2 ML VIAL IV PRN ×2 (01:47→08:32)
[2021-09-05] MEDS ORDERED: morphine 4 MG/ML VIAL IV PRN (01:47)
[2021-09-05] MEDS ORDERED: cefTRIAXone 2 GM in DEXTROSE 5% IN WATER 50 ML IV SCH ×2 (02:00→17:00)
[2021-09-05] MEDS ORDERED: fentaNYL 100 MCG/2 ML VIAL IV ONE (02:02)
[2021-09-05] MEDS: 0.9 % SODIUM CHLORIDE 1,000 ML IV SCH ×2 (03:47→13:48)
[2021-09-05] MEDS: 0.9 % SODIUM CHLORIDE 10 ML SYRINGE IV SCH ×2 (05:44→13:41)
--- NOTE | 2021-09-05 06:14 | Cat Scan Report ---
INDICATION: abd pain COMPARISON: Previous examination dated 03/20/2021 TECHNIQUE: Axial images were obtained through the abdomen and pelvis. Sagittally and coronally reformatted images. 90 mL Isovue 370 injected intravenously. Oral contrast material was not administered FINDINGS: Examination was initially interpreted by [facility] Lung bases:Small pleural effusions, right larger than left. These have decreased since 03/20/2021. There bilateral lobe parenchymal densities which are probably are consistent with benign volume loss. Pneumonia is not excluded Liver:Negative. No focal intrahepatic mass. No focal abnormality. Liver contour is smooth. No evidence for cirrhosis Gallbladder, bilary:There is cholelithiasis. Gallbladder wall appears thickened and measures approximately 5 mm. There is minimal infiltration of pericholecystic fat. Cholecystitis is possible. Common bile duct measures 9 mm. No intrahepatic bile duct dilatation. No detectable choledocholithiasis. Spleen:No splenomegaly. Normal enhancement of splenic and portal veins. Pancreas:No pancreatic mass. No peripancreatic abnormality Adrenal glands:Negative Kidneys, ureters, bladder:No solid renal mass. No hydronephrosis. No obstructing calculi. There is no hydroureter. No ureteral stone No bladder calculi or detectable mass Gastrointestinal:No detectable colonic mass. There is no diverticulitis. Small bowel is negative. No mechanical small bowel obstruction. Stomach and duodenum are unremarkable Appendix: The appendix is negative Vascular:Negative abdominal aorta. Superior mesenteric artery and celiac trunk are normal. Normal opacification of the inferior mesenteric artery Lymphatic:No retroperitoneal or mesenteric adenopathy Mesentery, peritoneum: No free intraperitoneal fluid. No mesenteric or retroperitoneal mass. No intra-abdominal abscess. Reproductive:No significant prostatic enlargement. There are prostatic calcifications Musculoskeletal:No lumbar compression fractures. Sacrum and pelvis are negative. No hip fracture. No abdominal wall or inguinal hernia IMPRESSION: 1. Abnormal gallbladder. There is cholelithiasis, gallbladder wall thickening, and mild pericholecystic inflammatory change. Findings are consistent with cholecystitis. Clinical correlation and gallbladder ultrasound recommended 2. Small pleural effusions and bibasilar pulmonary parenchymal density as above The exam was performed using radiation dose optimization techniques including, but not limited to, automated exposure control, adjustment of the mA and/or kV according to patient size and use of iterative reconstruction technique. Interpreted and Authenticated by: Orion Hamilton 09/05/21
--- NOTE | 2021-09-05 06:18 | XRay Report ---
INDICATION: weakness TECHNIQUE: AP portable semiupright chest x-ray COMPARISON: Previous chest x-rays dated 03/23/2021, 03/21/2021 FINDINGS:Examination is suboptimal due to portable technique and this patient's large size Lungs:Right basilar pulmonary parenchymal density may be benign volume loss. Pneumonia is possible Heart, vascular:Probable cardiomegaly. This may be secondary to magnification with AP technique and large body size. No evidence for pulmonary congestion or congestive heart failure Mediastinum, dionicio:No mediastinal widening. No hilar mass Pleura:Small bilateral pleural effusions Skeletal:Negative. IMPRESSION: 1. Right basilar pulmonary parenchymal density most consistent with volume loss. Pneumonia is possible 2. Cardiomegaly. No pulmonary edema or pulmonary congestion 3. Small pleural effusions Interpreted and Authenticated by: Orion Hamilton 09/05/21
--- NOTE | 2021-09-05 07:56 | Internal Med History&Physical ---
HPI History of Present Illness Patient information: Note initiated : 09/05/21 at 7:50 am Service Date, if different from initiated Date: [] Patient: James Hyde a 71 y/o M admitted on 09/05/21 for Vomiting, ABD pain, No BM. Chief Complaint: [] History of present illness: Mr. Hyde is a 71 year old M Presents to the ED from [facility] with nausea and vomiting and burning upper abdominal pain since yesterday morning. Abdominal pain is nonradiating, denies diarrhea. Work-up in the ED revealed acute cholecystitis. Dr. De Leon was contacted for surgery. Review of Systems: Pertinent positives as above. Denies headache/fever/chills/chest pain/cough/d yspnea/diarrhea. Remaining 10 point review of system reviewed negative PFSH PFSH All Active Problems (Updated 09/05/21 @ 01:47 by Paddy Keller DO) Vomiting (Acute) Dehydration (Acute) Cholecystitis (Acute) Cholelithiasis (Acute) T2DM (type 2 diabetes mellitus) (Acute) RAMAKRISHNA on CPAP (Acute) Neuropathic pain (Acute) On home oxygen therapy (Acute) COPD (chronic obstructive pulmonary disease) (Acute) Atrial fibrillation (Acute) Hemothorax, right (Acute) Morbid obesity due to excess calories (Acute) Acute and chronic respiratory failure ([id number]) (Acute) Congestive heart failure (Acute) MEDS/ALLERGIES Home Medications and Allergies Home Medications Medication Instructions Recorded Confirmed Type Anoro Ellipta 1 inh INHALATION QDAY 03/15/21 09/05/21 History calcium carbonate [Antacid 500 mg PO Q4HP PRN 03/15/21 09/05/21 History (calcium carbonate)] fluoxetine 20 mg PO QDAY 03/15/21 09/05/21 History simethicone 160 mg PO BID 03/15/21 09/05/21 History acetaminophen 1,000 mg PO TID 03/16/21 09/05/21 History albuterol sulfate [Proventil HFA] 2 puff INHALATION Q6HP PRN 03/16/21 09/05/21 History fluticasone propionate 1 spray INTRANASAL QDAY 03/16/21 09/05/21 History ipratropium-albuterol 3 ml INHALATION Q4HP PRN 03/16/21 09/05/21 History metformin 500 mg PO QDAY 03/16/21 09/05/21 History torsemide 20 mg PO QDAY 03/16/21 09/05/21 History metoprolol succinate 25 mg PO QDAY #1 tab 03/26/21 09/05/21 Rx apixaban 5 mg PO BID 09/04/21 09/05/21 History bisacodyl [Dulcolax (bisacodyl)] 10 mg AL QDAY PRN 09/04/21 09/05/21 History diphenhydramine HCl [Allergy 25 mg PO QHS PRN 09/04/21 09/05/21 History (diphenhydramine)] docusate sodium 100 mg PO BID 09/04/21 09/05/21 History famotidine 20 mg PO QDAY 09/04/21 09/05/21 History glucagon HCl [Glucagon (HCl) 1 mg SUBCUT Q15M PRN 09/04/21 09/05/21 History Emergency Kit] glucos sul [id number] 1 cap PO BID 09/04/21 09/05/21 History [Glucosamine Chondroitin] sodium phosphates [Fleet Enema] 118 ml AL PRN PRN 09/04/21 09/05/21 History lorazepam 0.5 mg PO Q8 PRN 09/05/21 09/05/21 History magnesium hydroxide [Milk of 400 mg PO 3XW PRN 09/05/21 09/05/21 History Magnesia] ondansetron 8 mg PO Q6H PRN 09/05/21 09/05/21 History oxycodone 10 mg PO Q6HP PRN 09/05/21 09/05/21 History potassium chloride 10 meq PO QDAY 09/05/21 09/05/21 History Allergies Allergy/AdvReac Type Severity Reaction Status Date / Time Amoxicillin [From Augmentin] Allergy Unknown Unknown Verified 09/04/21 23:36 clavulanic acid Allergy Unknown Unknown Verified 09/04/21 23:36 [From Augmentin] doxycycline Allergy Unknown Unknown Verified 09/04/21 23:36 NSAIDS (Non-Steroidal Allergy Unknown Unknown Verified 09/04/21 23:36 Anti-Inflamma Penicillins Allergy Unknown Unknown Verified 09/04/21 23:36 EXAM Constitutional Vitals: Temp Pulse Resp BP Pulse Ox 98.1 F 100 H 18 97/64 100 09/05/21 07:15 09/05/21 07:15 09/05/21 07:15 09/05/21 07:15 09/05/21 07:15 Exam: General: Alert, Awake, No acute Distress, morbid obesity Eyes/N/T: EOMI, PERRL, Head/Neck: neck supple, normocephalic atraumatic CV: RRR, No murmurs, normal s1/s2 Pulm: Clear b/l, no wheezing/rhonchi/rales Abd: soft, TTP RUQ, +BS x4 Ext: no clubbing/cyanosis, mild b/l LE edema, venous stasis changes bilateral lower extremities Neuro: Alert, no focal deficits, moves all extremities, CN 2-12 grossly intact, symmetrical strength b/l upper/lower, sensations intact b/l upper/lower Skin: warm/dry DATA Data Completed and Pending Labs: Labs from last 24 hours 09/05/21 09/04/21 09/04/21 23:45 23:45 23:45 WBC RBC Hgb Hct POC Hct MCV MCH MCHC RDW Plt Count MPV Neut % (Auto) Lymph % (Auto) [facility] % (Auto) Eos % (Auto) Baso % (Auto) Lymph # (Auto) [facility] # (Auto) Eos # (Auto) Baso # (Auto) Absolute Neutrophils Differential Comment PT 17.5 H INR 1.4 H VBG Lactic Acid POC Sodium Sodium POC Potassium Potassium POC Chloride Chloride Carbon Dioxide POC Total CO2 Anion Gap POC BUN BUN Creatinine POC Creatinine GFR Calculation Glucose POC Glucose Calcium POC WB Ioniz Calcium Magnesium 2.0 Total Bilirubin AST ALT Alkaline Phosphatase Troponin T 0.02 NT-Pro-B Natriuret Pep Total Protein Albumin Globulin Albumin/Globulin Ratio Lipase 09/04/21 09/04/21 09/04/21 23:45 23:45 23:45 WBC 19.5 H RBC 4.10 L Hgb 12.6 L Hct 39.0 L POC Hct 41 MCV 95.1 MCH 30.7 MCHC 32.3 RDW 14.1 Plt Count 242 MPV 10.5 H Neut % (Auto) 92.8 H Lymph % (Auto) 1.[address] [facility] % (Auto) 5.4 Eos % (Auto) 0 Baso % (Auto) 0.2 Lymph # (Auto) 0.[address] [facility] # (Auto) 1.06 H Eos # (Auto) 0 Baso # (Auto) 0.03 Absolute Neutrophils 18.08 H Differential Comment PT INR VBG Lactic Acid 2.3 H POC Sodium 134 Sodium 134 POC Potassium 4.1 Potassium 4.0 POC Chloride 94 L Chloride 93 L Carbon Dioxide 26 POC Total CO2 28 Anion Gap 15.0 POC BUN 19 BUN 14 Creatinine 1.3 H POC Creatinine 1.4 H GFR Calculation 54 Glucose 120 H POC Glucose 127 H Calcium 9.7 POC WB Ioniz Calcium 1.07 L Magnesium Total Bilirubin 4.8 H AST 110 H ALT 68 H Alkaline Phosphatase 357 H Troponin T NT-Pro-B Natriuret Pep 8058.0 H Total Protein 8.1 Albumin 3.2 Globulin 4.9 H Albumin/Globulin Ratio 0.7 L Lipase 8 Preliminary micro results at discharge 09/04/21 00:50 Blood Culture - Preliminary Blood A/P Narrative A/P Narrative: A: *Acute cholecystitis w/transaminitis: *ZANDER: *A. fib: On apixaban/BB *h/o diastolic CHF -RV mod-sev dilated, right atrium dilated, mod Pulm HTN *COPD (on 3-4L @home): *RAMAKRISHNA/obesity hypoventilation syndrome: On cpap *Morbid obesity *Opiate dependence with chronic LBP: *Depression/anxiety: *Deconditioning/debility: Patient is wheelchair-bound and unable to transfer by self *GERD: *h/o pressure ulcers P: -Dr. de leon for surgery -IV abx -IVF while NPO, monitor fluid balance closely -hold Toprol for low BP -nocturnal BiPAP and prn daytime -wound care -pt/ot -CM for placement -ppx: apixaban (hold until seen by surgery), SCD / home H2 DNR Time Spent With Patient Time: Total time spent is greater than 50% in coordination of care (as documented) at patient's floor/unit and/or counseling patient:
[2021-09-05] MEDS ORDERED: ACETAMINOPHEN 500 MG TABLET PO PRN (08:30)
[2021-09-05] MEDS ORDERED: FLEETS ADULT ENEMA PR PRN (08:30)
[2021-09-05] MEDS ORDERED: LORazepam 0.5 MG TABLET PO PRN (08:30)
[2021-09-05] MEDS ORDERED: BISACODYL 10 MG SUPP.RECT PR PRN (08:30)
[2021-09-05] MEDS ORDERED: oxyCODONE HCL 5 MG TABLET PO PRN (08:30)
[2021-09-05] MEDS ORDERED: MAGNESIUM HYDROXIDE 30 ML ORAL.SUSP PO PRN (08:30)
[2021-09-05] MEDS ORDERED: POLYETHYLENE GLYCOL 3350 17 GM PACKET PO PRN (08:32)
[2021-09-05] MEDS ORDERED: IPRATROPIUM/ALBUTEROL 3 ML AMPUL.NEB NEB PRN (08:32)
[2021-09-05] MEDS ORDERED: SENNOSIDES 1 TABLET PO PRN (08:32)
[2021-09-05] MEDS ORDERED: DEXTROSE 50% 50 ML VIAL IV PRN (08:32)
[2021-09-05] MEDS ORDERED: MAGNESIUM SULFATE 2 GM/50 ML BAG IV PRN (08:32)
[2021-09-05] MEDS ORDERED: LABETALOL 5 MG/ML ML IV PRN (08:32)
[2021-09-05] MEDS ORDERED: POTASSIUM CHLORIDE 20 MEQ TABLET PO PRN ×2 (08:32)
[2021-09-05] MEDS ORDERED: DEXTROSE 31 GM ORAL.SUSP PO PRN (08:32)
[2021-09-05] MEDS ORDERED: METOCLOPRAMIDE 10 MG/2 ML VIAL IV PRN (08:32)
[2021-09-05] MEDS ORDERED: POTASSIUM CHLORIDE 40 MEQ in DEXTROSE 5% IN WATER 500 ML IV PRN (08:32)
[2021-09-05] MEDS ORDERED: VILANTEROL INH SCH (09:00)
[2021-09-05] MEDS ORDERED: UMECLIDINIUM INH SCH (09:00)
[2021-09-05] MEDS ORDERED: FAMOTIDINE 20 MG TABLET PO SCH (09:00)
[2021-09-05] MEDS ORDERED: TORSEMIDE 10 MG TABLET PO SCH (09:00)
[2021-09-05] MEDS ORDERED: FLUoxetine HCL 20 MG CAPSULE PO SCH (09:00)
[2021-09-05] MEDS ORDERED: SIMETHICONE 80 MG TAB.CHEW CHEWED SCH (09:00)
[2021-09-05] MEDS ORDERED: DOCUSATE SODIUM 100 MG CAPSULE PO SCH ×2 (09:00)
--- NOTE | 2021-09-05 09:41 | EKG ---
[facility] Test Date: 2021-09-04 Pat Name: James Hyde Department: ED Room: Gender: Male Pulmonary Disease Specialist: [id number] : 1950 Requested By: Paddy Keller Order Number: [id number] Reading MD: Orion Bennett M.D. Measurements Intervals [place] Rate: 92 P: OK: QRS: 60 QRSD: 117 T: 64 QT: 389 QTc: 482 Interpretive Statements Atrial fibrillation Incomplete right bundle branch block Low voltage QRS complexes Baseline wander in lead(s) II Electronically Signed On 09-05-2021 9:41:11 PST by Orion Bennett M.D. /store/[email or web address]/[id number]
[2021-09-05] MEDS: INSULIN LISPRO 1 UNIT/0.01 ML UNIT SQ SCH ×2 (11:46→17:05)
--- NOTE | 2021-09-05 12:31 | General Surgery Consult Note ---
HPI Data of Consult Consult date: 09/05/21 Requesting physician: Dave Mcgowan Primary Care Provider: Physician Not On Staff Consult Narrative Patient Information: Note initiated : 09/05/21 at 12:24 pm Service Date, if different from initiated Date: [] Patient: James Hyde 71 y/o M admitted on 09/05/21 for Vomiting, ABD pain, No BM. Chief Complaint: [] Chief complaint: Recurrent abdominal pain with nausea and vomiting Reason for consult: Acute cholecystitis with cholelithiasis and choledocholithiasis cc:: CC: Dave Mcgowan 71-year-old male with onset of severe upper abdominal pain at 5 AM on yesterday. This was followed by multiple episodes of nausea and vomiting. He continued with nausea and vomiting until he was seen in the emergency room. In the emergency room he was noted to be mildly jaundiced with a bilirubin of 4.[address] was done and it showed calcified gallstones. Patient notes that he has had dark urine for 3 to 4 days prior to onset of symptoms. He has not had similar discomfort in the past. Patient has probable choledocholithia sis but this cannot be documented by MRCP because of his large size. He is too large for our scanner. Patient will need ERCP prior to cholecystectomy. Because of his comorbid conditions his surgery should be done at a tertiary center where there is more critical care available for the postop care. Constitutional Constitutional: Present fatigue, malaise, snoring and weakness EENT Additional comments: Scleral icterus Ears: Present decreased hearing Nose, mouth and throat: Present dizziness Cardiovascular Cardiovascular: Present chest pain with activity, dyspnea on exertion, leg edema and lightheadedness; Absent chest pain Respiratory Respiratory: Present cough, dyspnea, dyspnea on exertion and snoring Gastrointestinal Gastrointestinal: Present abdominal pain, heartburn, nausea and vomiting Genitourinary Additional comments: Dark urine Musculoskeletal Musculoskeletal: Present abnormal gait, arthralgias and myalgias Neurological Neurological: Present dizziness Hematologic/Lymphatic Hematologic/Lymphatic: Absent easy bleeding, easy bruising and lymphadenopathy PFSH PFSH All Active Problems (Updated 09/05/21 @ 12:46 by Rock Carr MD) Cholelithiasis with acute on chronic cholecystitis with biliary obstruction (Acute) Vomiting (Acute) Dehydration (Acute) Cholecystitis (Acute) Cholelithiasis (Acute) T2DM (type 2 diabetes mellitus) (Acute) RAMAKRISHNA on CPAP (Acute) Neuropathic pain (Acute) On home oxygen therapy (Acute) COPD (chronic obstructive pulmonary disease) (Acute) Atrial fibrillation (Acute) Hemothorax, right (Acute) Morbid obesity due to excess calories (Acute) Acute and chronic respiratory failure ([id number]) (Acute) Congestive heart failure (Acute) Surgical History (Updated 09/05/21 @ 12:40 by Rock Carr MD) H/O meniscectomy of right knee MEDS/ALLERGIES Home Medications and Allergies Home Medications Medication Instructions Recorded Confirmed Type Anoro Ellipta 1 inh INHALATION QDAY 03/15/21 09/05/21 History calcium carbonate [Antacid 500 mg PO Q4HP PRN 03/15/21 09/05/21 History (calcium carbonate)] fluoxetine 20 mg PO QDAY 03/15/21 09/05/21 History simethicone 160 mg PO BID 03/15/21 09/05/21 History acetaminophen 1,000 mg PO TID 03/16/21 09/05/21 History albuterol sulfate [Proventil HFA] 2 puff INHALATION Q6HP PRN 03/16/21 09/05/21 History fluticasone propionate 1 spray INTRANASAL QDAY 03/16/21 09/05/21 History ipratropium-albuterol 3 ml INHALATION Q4HP PRN 03/16/21 09/05/21 History metformin 500 mg PO QDAY 03/16/21 09/05/21 History torsemide 20 mg PO QDAY 03/16/21 09/05/21 History metoprolol succinate 25 mg PO QDAY #1 tab 03/26/21 09/05/21 Rx apixaban 5 mg PO BID 09/04/21 09/05/21 History bisacodyl [Dulcolax (bisacodyl)] 10 mg ME QDAY PRN 09/04/21 09/05/21 History diphenhydramine HCl [Allergy 25 mg PO QHS PRN 09/04/21 09/05/21 History (diphenhydramine)] docusate sodium 100 mg PO BID 09/04/21 09/05/21 History famotidine 20 mg PO QDAY 09/04/21 09/05/21 History glucagon HCl [Glucagon (HCl) 1 mg SUBCUT Q15M PRN 09/04/21 09/05/21 History Emergency Kit] glucos sul [id number] 1 cap PO BID 09/04/21 09/05/21 History [Glucosamine Chondroitin] sodium phosphates [Fleet Enema] 118 ml ME PRN PRN 09/04/21 09/05/21 History lorazepam 0.5 mg PO Q8 PRN 09/05/21 09/05/21 History magnesium hydroxide [Milk of 400 mg PO 3XW PRN 09/05/21 09/05/21 History Magnesia] ondansetron 8 mg PO Q6H PRN 09/05/21 09/05/21 History oxycodone 10 mg PO Q6HP PRN 09/05/21 09/05/21 History potassium chloride 10 meq PO QDAY 09/05/21 09/05/21 History Allergies Allergy/AdvReac Type Severity Reaction Status Date / Time Amoxicillin [From Augmentin] Allergy Unknown Unknown Verified 09/04/21 23:36 clavulanic acid Allergy Unknown Unknown Verified 09/04/21 23:36 [From Augmentin] doxycycline Allergy Unknown Unknown Verified 09/04/21 23:36 NSAIDS (Non-Steroidal Allergy Unknown Unknown Verified 09/04/21 23:36 Anti-Inflamma Penicillins Allergy Unknown Unknown Verified 09/04/21 23:36 Physical Examination Vital Signs Vital signs: Temp Pulse Resp BP Pulse Ox 97.5 F 95 H 21 109/65 100 09/05/21 11:59 09/05/21 11:59 09/05/21 11:59 09/05/21 11:59 09/05/21 11:59 General physical appearance General physical exam: well developed, moderate distress, severe pain, chronically ill and obese Eyes Eye exam: PERRL, normal ocular movement and icteric ENT ENT exam: normal mucosa and decreased hearing Head Head exam IM: Present atraumatic, normal inspection and normocephalic Neck Neck exam: no masses, trachea midline, no lymphadenopathy and no venous distension Cardiovascular Cardiovascular exam IM: Present normal rate and rhythm, RRR, +S1 and +S2; Absent JVD Respiratory Respiratory exam: normal expansion, normal respiratory effort and clear to auscultation Abdomen Abdomen: Present tender (Epigastric and right upper quadrant tenderness with guarding) Integumentary Integumentary: Present no rash, no growths and no abnormal pigmentation Neurologic Neurologic: Present normal coordination and normal sensation Musculoskeletal Musculoskeletal: Present normal gait and normal posture Psychiatric Psychiatric: Present oriented to time, oriented to person, oriented to place, speech is normal and memory intact Results Labs Result diagrams: 09/04/21 23:45 09/04/21 23:45 Labs: Abnormal lab results 09/04/21 09/04/21 09/04/21 Range/Units 23:45 23:45 23:45 WBC 19.5 H (4.5-11.0) K/mcL RBC 4.10 L (4.63-6.08) M/mcL Hgb 12.6 L (13.7-17.5) g/dL Hct 39.0 L (40.1-51.0) % MPV 10.5 H (7.4-10.4) fL Neut % (Auto) 92.8 H (38.0-78.0) % Lymph % (Auto) 1.6 L (15.5-49.0) % Lymph # (Auto) 0.32 L (1.50-4.80) K/mcL [place] # (Auto) 1.06 H (0.10-0.90) K/mcL Absolute Neutrophils 18.08 H (1.80-8.00) K/mcL PT (11.9-14.5) sec INR (0.9-1.1) VBG Lactic Acid 2.3 H (0.5-2.0) mmol/L POC Chloride 94 L (96-108) mEq/L Chloride 93 L (96-108) mmol/L Creatinine 1.3 H (0.7-1.2) mg/dL POC Creatinine 1.4 H (0.6-1.2) mg/dL Glucose 120 H (70-105) mg/dL POC Glucose 127 H (70-105) mg/dL POC WB Ioniz Calcium 1.07 L (1.16-1.32) mmEq/L Total Bilirubin 4.8 H (0.1-1.0) mg/dL AST 110 H (<40) U/L ALT 68 H (<40) U/L Alkaline Phosphatase 357 H (39-117) U/L NT-Pro-B Natriuret Pep 8058.0 H (<125.0) pg/mL Globulin 4.9 H (2.2-3.7) gm/dL Albumin/Globulin Ratio 0.7 L (1.0-2.3) 09/04/21 Range/Units 23:45 WBC (4.5-11.0) K/mcL RBC (4.63-6.08) M/mcL Hgb (13.7-17.5) g/dL Hct (40.1-51.0) % MPV (7.4-10.4) fL Neut % (Auto) (38.0-78.0) % Lymph % (Auto) (15.5-49.0) % Lymph # (Auto) (1.50-4.80) K/mcL [place] # (Auto) (0.10-0.90) K/mcL Absolute Neutrophils (1.80-8.00) K/mcL PT 17.5 H (11.9-14.5) sec INR 1.4 H (0.9-1.1) VBG Lactic Acid (0.5-2.0) mmol/L POC Chloride (96-108) mEq/L Chloride (96-108) mmol/L Creatinine (0.7-1.2) mg/dL POC Creatinine (0.6-1.2) mg/dL Glucose (70-105) mg/dL POC Glucose (70-105) mg/dL POC WB Ioniz Calcium (1.16-1.32) mmEq/L Total Bilirubin (0.1-1.0) mg/dL AST (<40) U/L ALT (<40) U/L Alkaline Phosphatase (39-117) U/L NT-Pro-B Natriuret Pep (<125.0) pg/mL Globulin (2.2-3.7) gm/dL Albumin/Globulin Ratio (1.0-2.3) Diabetes panel 09/04/21 Range/Units 23:45 Sodium 134 (133-145) mmol/L Potassium 4.0 (3.3-5.1) mmol/L Chloride 93 L (96-108) mmol/L Carbon Dioxide 26 (22-30) mmol/L BUN 14 (8-23) mg/dL Creatinine 1.3 H (0.7-1.2) mg/dL Glucose 120 H (70-105) mg/dL Calcium 9.7 (8.6-10.4) mg/dL AST 110 H (<40) U/L ALT 68 H (<40) U/L Alkaline Phosphatase 357 H (39-117) U/L Total Protein 8.1 (5.9-8.4) gm/dL Albumin 3.2 (3.2-5.2) gm/dL Calcium panel 09/04/21 Range/Units 23:45 Calcium 9.7 (8.6-10.4) mg/dL Albumin 3.2 (3.2-5.2) gm/dL Pituitary panel 09/04/21 Range/Units 23:45 Sodium 134 (133-145) mmol/L Potassium 4.0 (3.3-5.1) mmol/L Chloride 93 L (96-108) mmol/L Carbon Dioxide 26 (22-30) mmol/L BUN 14 (8-23) mg/dL Creatinine 1.3 H (0.7-1.2) mg/dL Glucose 120 H (70-105) mg/dL Calcium 9.7 (8.6-10.4) mg/dL Adrenal panel 09/04/21 Range/Units 23:45 Sodium 134 (133-145) mmol/L Potassium 4.0 (3.3-5.1) mmol/L Chloride 93 L (96-108) mmol/L Carbon Dioxide 26 (22-30) mmol/L BUN 14 (8-23) mg/dL Creatinine 1.3 H (0.7-1.2) mg/dL Glucose 120 H (70-105) mg/dL Calcium 9.7 (8.6-10.4) mg/dL Total Bilirubin 4.8 H (0.1-1.0) mg/dL AST 110 H (<40) U/L ALT 68 H (<40) U/L Alkaline Phosphatase 357 H (39-117) U/L Total Protein 8.1 (5.9-8.4) gm/dL Albumin 3.2 (3.2-5.2) gm/dL All other labs normal. A/P Assessment and plan (1) Cholelithiasis with acute on chronic cholecystitis with biliary obstruction: Status: Acute (2) T2DM (type 2 diabetes mellitus): Status: Acute (3) RAMAKRISHNA on CPAP: Status: Acute (4) COPD (chronic obstructive pulmonary disease): Status: Acute Qualifiers: COPD type: emphysema Emphysema type: panlobular Qualified Code(s): J43.1 - Panlobular emphysema (5) Atrial fibrillation: Status: Acute (6) Morbid obesity due to excess calories: Status: Acute (7) Acute and chronic respiratory failure ([id number]): Status: Acute Qualifiers: Respiratory failure complication: hypercapnia Qualified Code(s): J96.22 - Acute and chronic respiratory failure with hypercapnia (8) Congestive heart failure: Status: Acute Qualifiers: Heart failure chronicity: chronic Narrative A/P Narrative: Patient has acute cholecystitis and documented cholelithiasis with presumed choledocholithiasis based on elevated bilirubin and alkaline phosphatase with mild elevation in AST and ALT. He is too large for a scanner to confirm choledocholithiasis however his symptom complex mandates that he have an ERCP which is not available at our facility or in the immediate region. The patient has significant comorbidities with diastolic dysfunction right heart failure. He also has significant sleep apnea and chronic obstructive lung disease which cause significantly increasing his potential for perioperative morbidity. Patient should be transferred to a tertiary center for further evaluation and for surgery so that there will be critical care and pulmonary physicians available for postoperative management. His comorbidities are to advance for surgery at this facility. Time Spent With Patient Time: Total time spent is greater than 50% in coordination of care (as documented) at patient's floor/unit and/or counseling patient:
[2021-09-05] MEDS ORDERED: 0.9 % SODIUM CHLORIDE 10 ML SYRINGE IV SCH (14:00)
--- NOTE | 2021-09-05 17:16 | Discharge Summary ---
Discharge Provider Provider Patient information: Note initiated : 09/05/21 at 5:13 pm Service Date, if different from initiated Date: [] Patient: James Hyde 71 y/o M admitted on 09/05/21 for Vomiting, ABD pain, No BM. Chief Complaint: [] Presents to the ED from [facility] with nausea and vomiting and burning upper abdominal pain since yesterday morning. Abdominal pain is nonradiating, denies diarrhea. Work-up in the ED revealed acute cholecystitis. Dr. Carr was contacted for surgery. Date of admission: 09/05/21 02:21 Discharge date: 09/05/21 Primary care physician: Physician Not On Staff Consults: 09/05/21 Consult to Physician [CONS] Stat Comment: Consulting Provider: Dave Mcgowan Reason For Exam: Physician to Consult Consult to Physician [CONS] Stat Comment: Consulting Provider: Rock Carr Reason For Exam: Physician to Consult Discharge Meds Discharge Medications Home Medications Anoro Ellipta 1 inh INHALATION QDAY 03/15/21 [History Confirmed 09/05/21 Last Taken 03/14/21] fluoxetine 20 mg PO QDAY 03/15/21 [History Confirmed 09/05/21 Last Taken 03/14/21] simethicone 160 mg PO BID 03/15/21 [History Confirmed 09/05/21 Last Taken 03/14/21] acetaminophen 1,000 mg PO TID 03/16/21 [History Confirmed 09/05/21 Last Taken 03/14/21 20:00] torsemide 20 mg PO QDAY 03/16/21 [History Confirmed 09/05/21 Last Taken 03/14/21] Fleet Enema 118 ml FL PRN PRN 09/04/21 [History Confirmed 09/05/21 Last Taken Unknown] bisacodyl [Dulcolax (bisacodyl)] 10 mg FL QDAY PRN 09/04/21 [History Confirmed 09/05/21 Last Taken Unknown] diphenhydramine HCl [Allergy (diphenhydramine)] 25 mg PO QHS PRN 09/04/21 [History Confirmed 09/05/21 Last Taken Unknown] docusate sodium 100 mg PO BID 09/04/21 [History Confirmed 09/05/21 Last Taken Unknown] famotidine 20 mg PO QDAY 09/04/21 [History Confirmed 09/05/21 Last Taken Unknown] lorazepam 0.5 mg PO Q8 PRN 09/05/21 [History Confirmed 09/05/21 Last Taken Unknown] magnesium hydroxide [Milk of Magnesia] 400 mg PO 3XW PRN 09/05/21 [History Confirmed 09/05/21 Last Taken Unknown] oxycodone 10 mg PO Q6HP PRN 09/05/21 [History Confirmed 09/05/21 Last Taken Unknown] COURSE Hospital Course Hospital course: Suspected cholecystitis and/or choledocholithiasis. Need ERCP for confirmation. Such services not available here. Also general surgeon did not feel safe to perform surgery in our facility given multiple medical comorbidities. Patient to be transferred to outside hospital for the aforementioned services. Discharge diagnosis: cholecystitis and/or choledocholithiasis Time Spent with Patient Time attestation: Total time spent providing and/or coordinating discharge services: Suspected cholecystitis and/or choledocholithiasis. Need ERCP for confirmation. Such services not available here. Also general surgeon did not feel safe to perform surgery in our facility given multiple medical comorbidities. Patient to be transferred to outside hospital for the aforementioned services. EXAM Constitutional Vitals: Temp Pulse Resp BP Pulse Ox 36.0 C L 86 18 102/70 99 09/05/21 16:00 09/05/21 16:00 09/05/21 16:00 09/05/21 16:00 09/05/21 16:00 General appearance: cooperative and mild distress Head Head exam: Present atraumatic and normocephalic Eye Eye exam: Present EOMI and PERRL ENT ENT exam: Present mucous membranes moist, normal exam and normal external ear exam Neck Neck exam: Present normal inspection; Absent lymphadenopathy, tenderness and thyromegaly Respiratory Respiratory exam: Absent accessory muscle use, respiratory distress and wheezes Cardiovascular Cardiovascular exam: Present normal rate and rhythm; Absent JVD GI/Abdominal GI/Abdominal exam: Present normal bowel sounds, soft and tenderness; Absent organomegaly Rectal Rectal exam: Present deferred Extremities Exam Extremities exam: Present full ROM, normal capillary refill and normal inspection; Absent tenderness Neurological Exam Neurological exam: Present alert, CN II-XII intact and oriented X3; Absent motor sensory deficit Psychiatric Psychiatric exam: Present normal affect and normal mood; Absent anxious and depressed Skin Skin exam: Present dry and intact Discharge Data Data Completed and Pending Labs on day of discharge: Labs from last 24 hours 09/05/21 09/04/21 09/04/21 23:45 23:45 23:45 WBC RBC Hgb Hct POC Hct MCV MCH MCHC RDW Plt Count MPV Neut % (Auto) Lymph % (Auto) Gilchrist % (Auto) Eos % (Auto) Baso % (Auto) Lymph # (Auto) Gilchrist # (Auto) Eos # (Auto) Baso # (Auto) Absolute Neutrophils Differential Comment PT 17.5 H INR 1.4 H VBG Lactic Acid POC Sodium Sodium POC Potassium Potassium POC Chloride Chloride Carbon Dioxide POC Total CO2 Anion Gap POC BUN BUN Creatinine POC Creatinine GFR Calculation Glucose POC Glucose Calcium POC WB Ioniz Calcium Magnesium 2.0 Total Bilirubin AST ALT Alkaline Phosphatase Troponin T 0.02 NT-Pro-B Natriuret Pep Total Protein Albumin Globulin Albumin/Globulin Ratio Lipase 09/04/21 09/04/21 09/04/21 23:45 23:45 23:45 WBC 19.5 H RBC 4.10 L Hgb 12.6 L Hct 39.0 L POC Hct 41 MCV 95.1 MCH 30.7 MCHC 32.3 RDW 14.1 Plt Count 242 MPV 10.5 H Neut % (Auto) 92.8 H Lymph % (Auto) 1.6 L Gilchrist % (Auto) 5.4 Eos % (Auto) 0 Baso % (Auto) 0.2 Lymph # (Auto) 0.32 L Gilchrist # (Auto) 1.06 H Eos # (Auto) 0 Baso # (Auto) 0.03 Absolute Neutrophils 18.08 H Differential Comment PT INR VBG Lactic Acid 2.3 H POC Sodium 134 Sodium 134 POC Potassium 4.1 Potassium 4.0 POC Chloride 94 L Chloride 93 L Carbon Dioxide 26 POC Total CO2 28 Anion Gap 15.0 POC BUN 19 BUN 14 Creatinine 1.3 H POC Creatinine 1.4 H GFR Calculation 54 Glucose 120 H POC Glucose 127 H Calcium 9.7 POC WB Ioniz Calcium 1.07 L Magnesium Total Bilirubin 4.8 H AST 110 H ALT 68 H Alkaline Phosphatase 357 H Troponin T NT-Pro-B Natriuret Pep 8058.0 H Total Protein 8.1 Albumin 3.2 Globulin 4.9 H Albumin/Globulin Ratio 0.7 L Lipase 8 Preliminary micro results at discharge 09/04/21 00:50 Blood Culture - Preliminary Blood Discharge Plan Patient/Caregiver Discharge Instructions Activity: increase activity as tolerated Diet: NPO Prescriptions: Continued fluoxetine 20 mg Tablet 20 mg PO QDAY RF: 0 Anoro Ellipta 62.5-25 mcg/actuation Blister With Device 1 inh INHALATION QDAY RF: 0 simethicone 80 mg Tablet 160 mg PO BID RF: 0 torsemide 20 mg Tablet 20 mg PO QDAY RF: 0 acetaminophen 500 mg Tablet 1,000 mg PO TID RF: 0 famotidine 20 mg Tablet 20 mg PO QDAY RF: 0 bisacodyl [Dulcolax (bisacodyl)] 10 mg Suppository 10 mg FL QDAY PRN (Reason: Constipation) RF: 0 diphenhydramine HCl [Allergy (diphenhydramine)] 25 mg Tablet 25 mg PO QHS PRN (Reason: Buttock Irritation) RF: 0 Fleet Enema 19-7 gram/118 mL Enema 118 ml FL PRN PRN (Reason: Constipation) RF: 0 docusate sodium 100 mg Capsule 100 mg PO BID RF: 0 lorazepam 0.5 mg tablet 0.5 mg PO Q8 PRN (Reason: Anxiety) RF: 0 magnesium hydroxide [Milk of Magnesia] 400 mg/5 mL Suspension 400 mg PO 3XW PRN (Reason: Constipation) RF: 0 oxycodone 5 mg tablet 10 mg PO Q6HP PRN (Reason: Pain) RF: 0 Discontinued calcium carbonate [Antacid (calcium carbonate)] 200 mg calcium (500 mg) Tablet,Chewable 500 mg PO Q4HP PRN (Reason: Indigestion) RF: 0 fluticasone propionate 50 mcg/actuation [place],Suspension 1 spray INTRANASAL QDAY RF: 0 metformin 500 mg Tablet 500 mg PO QDAY RF: 0 ipratropium-albuterol 0.5 mg-3 mg(2.5 mg base)/3 mL Solution For Nebulization 3 ml INHALATION Q4HP PRN (Reason: Shortness Of Breath) RF: 0 albuterol sulfate [Proventil HFA] 90 mcg/actuation Hfa Aerosol Inhaler 2 puff INHALATION Q6HP PRN (Reason: Wheezing) RF: 0 metoprolol succinate 50 mg Tablet Extended Release 24 Hr 25 mg PO QDAY Qty: 1 RF: 0 apixaban 5 mg Tablet 5 mg PO BID RF: 0 Glucosamine Chondroitin 550-30-1 mg Capsule 1 cap PO BID RF: 0 Glucagon (HCl) Emergency Kit 1 mg Recon Soln 1 mg SUBCUT Q15M PRN (Reason: Hypoglycemia) RF: 0 potassium chloride 10 mEq Tablet Extended Release 10 meq PO QDAY RF: 0 ondansetron 4 mg Tablet,Disintegrating 8 mg PO Q6H PRN (Reason: Vomiting) RF: 0 Follow Up Plan Follow up with: Not On Staff,Physician [Primary Care Provider] - Patient Disposition: [facility] Prognosis: Serious Rehab Potential: Good I certify that the patient requires SNF services: No Overall status at discharge: patient is not back to baseline Discharge Orders: Discharge Order (Routine); Ordered 09/05/21 Ordered By: Cassius Street
[2021-09-05] MEDS ORDERED: diphenhydrAMINE 25 MG CAPSULE PO PRN (21:00)
[2021-09-05] MEDS ORDERED: SENNOSIDES 1 TABLET PO SCH (21:00)
[2021-09-06] MEDS ORDERED: PNEUMOCOCCAL 23-VAL P-SAC VAC 0.5 ML SYRINGE IM ONE (10:00)
== END 2021-09-05 17:45 | disposition short-term general hospital (02) | DRG 445 ==
LOC: ED 23:33 → MEDSUR 09-05 02:21
PROVIDERS: ADMIT Internal Medicine; ATTEND Internal Medicine